=== PATIENT | male | born 1925 | race Caucasian/White ===

== ENCOUNTER 2016-12-06 05:28 | Inpatient (IN) | payer MEDICARE, OTHER ==
[~2016-12-06] VITALS: Ht 177.8 cm; Wt 68.7 kg
[2016-12-06 06:27] LABS: ALBUMIN 3.4 GM/DL (3.2-5.2); ALBUMIN/GLOBULIN RATIO 1.13 (1.00-1.93); ALKALINE PHOSPHATASE 48 U/L (45-117); ALT/SGPT 18 U/L (12-78); AMYLASE 60 U/L (25-115); ANION GAP 10 MEQ/L (8-16); AST/SGOT 18 U/L (15-37); BILIRUBIN,DIRECT 0.3 MG/DL (0.0-0.2); BILIRUBIN,TOTAL 1.7 MG/DL (0.2-1.0); BLOOD UREA NITROGEN 23 MG/DL (7-18); CALCIUM LEVEL 9.4 MG/DL (8.8-10.2); CARBON DIOXIDE LEVEL 27 MEQ/L (21-32); CHLORIDE LEVEL 107 MEQ/L (98-107); CREATININE FOR GFR 1.77 MG/DL (0.70-1.30); GLOMERULAR FILTRATION RATE 38.8 (>35); GLUCOSE, FASTING 104 MG/DL (83-110); POTASSIUM SERUM 3.6 MEQ/L (3.5-5.1); SODIUM LEVEL 144 MEQ/L (136-145); TOTAL PROTEIN 6.4 GM/DL (6.4-8.2)
[2016-12-06 06:31] LABS: MEAN CORPUSCULAR HEMOGLOBIN 34.6 pg (27.0-33.0); MEAN CORPUSCULAR HGB CONC 33.3 g/dl (32.0-36.5); MEAN CORPUSCULAR VOLUME 103.7 fl (80.0-96.0); PLATELET COUNT, AUTOMATED 178 k/mm3 (150-450); WHITE BLOOD COUNT 22.4 K/mm3 (4.0-10.0)
[2016-12-06 07:03] LABS: BANDS 12 % (< 11)
[2016-12-06] MEDS ORDERED: PANTOPRAZOLE 40MG TAB (PROTONIX) PO SCH (09:00)
[2016-12-06] MEDS ORDERED: cefTRIAXone SOD 1 GM VIAL (J0696) As Ordered ONE (09:11)
[2016-12-06] MEDS ORDERED: AZITHROMYCIN INJ 500MG VIAL (J0456) As Ordered ONE (09:11)
[2016-12-06] MEDS ORDERED: SIMB1SUS OU (09:28)
[2016-12-06] MEDS ORDERED: TRAV04OPD OU (09:28)
[2016-12-06] MEDS ORDERED: ROLA1CHW PO (09:28)
[2016-12-06] MEDS ORDERED: ACETAMINOPHEN 500 MG TAB PO PRN (10:00)
[2016-12-06] MEDS ORDERED: ONDANSETRON 4MG/2ML VIAL (J2405) IV PRN (10:00)
[2016-12-06 10:43] VITALS: BP 103/58
--- NOTE | 2016-12-06 10:51 | EDDOCDS ---
Physician Documentation [facility] Name: Que Nam Jr Age: 89 yrs Sex: Male : 1925 Arrival Date: 12/06/2016 Time: 05:28 Bed 3 Private MD: Juan M Burnett Disposition: 12/06 09:36 Critical Care: Critical care not applicable. Disposition: 12/06/16 09:36 Hospitalization ordered by Candelaria Parsons for Inpatient Admission. Preliminary diagnosis is Bronchopneumonia, unspecified organism - RML. - Bed requested for 4 [place]. - Status is Inpatient Ad[facility]. [facility] - Condition is Stable. - Problem is new. - Symptoms have improved. Historical: - Allergies: No known drug Allergies; - Home Meds: 1. Travatan Z 0.004 % ophthalmic drop - PMHx: Macular Degeneration; - PSHx: Hip Arthroplasty, Right; - Social history: Smoking status: Patient states former smoker of tobacco. Patient uses alcohol on a daily basis. Patient/guardian denies using street drugs, No barriers to communication noted, The patient speaks fluent Armenian. - Family history: Not pertinent. - : The pt / caregiver states he / she is not on anticoagulants. Home medication list is obtained from the patient. - Exposure Risk Screening:: None identified. Vital Signs: 05:44 BP 102 / 60; Pulse 96; Resp 18; Temp 97.8(O); Pulse Ox 91% on R/A; Pain 2/10; jp6 05:50 Weight 66.22 kg / 145.99 lbs; Height 5 ft. 10 in. (177.80 cm); jp6 06:00 BP 97 / 51 (auto/); jp6 06:00 Pulse 92 MON; Pulse Ox 93% ; jp6 06:15 BP 102 / 59 (auto/); jp6 06:15 Pulse 90 MON; Pulse Ox 92% ; jp6 06:45 BP 103 / 56 (auto/); jp6 06:45 Pulse 94 MON; jp6 06:45 Resp 16; Pulse Ox 97% on R/A; jp6 07:00 BP 104 / 58 (auto/); dls 07:00 Pulse 92 MON; Pulse Ox 90% ; dls 07:15 BP 100 / 55 (auto/); dls 07:15 Pulse 89 MON; Pulse Ox 90% ; dls 07:30 BP 100 / 55 (auto/); dls 07:30 Pulse 91 MON; Pulse Ox 89% ; dls 07:45 BP 98 / 55 (auto/); dls 07:45 Pulse 92 MON; Pulse Ox 90% ; dls 08:00 BP 84 / 51 (auto/); dls 08:00 Pulse 89 MON; Pulse Ox 91% ; dls 08:15 BP 87 / 49 (auto/); dls 08:21 Pulse 92 MON; Pulse Ox 86% ; dls 08:36 BP 89 / 61 (auto/); dls 08:36 Pulse 102 MON; Pulse Ox 78% ; dls 08:45 BP 112 / 55 (auto/); js13 08:45 Pulse 88 MON; Resp 16; Pulse Ox 92% on R/A; js13 09:00 BP 112 / 57 (auto/); js13 09:00 Pulse 86 MON; Resp 16; Pulse Ox 91% on R/A; js13 09:15 BP 116 / 61 (auto/); js13 09:15 Pulse 88 MON; Resp 16; Pulse Ox 95% on 2 lpm NC; js13 09:30 BP 117 / 69 (auto/); js13 09:30 Pulse 84 MON; Resp 16; Pulse Ox 97% on 2 lpm NC; js13 09:45 BP 128 / 61 (auto/); js13 09:45 Pulse 87 MON; Resp 16; Pulse Ox 95% on 2 lpm NC; js13 10:00 BP 115 / 56 (auto/); js13 10:00 Pulse 89 MON; Resp 16; Pulse Ox 92% on 2 lpm NC; js13 10:15 BP 112 / 58 (auto/); js13 10:15 Pulse 89 MON; Resp 16; Temp 98.0(O); Pulse Ox 97% on 2 lpm NC; js13 05:50 Body Mass Index 20.95 (66.22 kg, 177.80 cm) jp6 05:44 hands are cold jp6 MDM: 05:33 ECG WITH READING ER PHYS+CARDIAG ordered. EDMS 05:56 Ondansetron 4 mg IVP once ordered. mm11 05:56 IV Saline Lock ordered. mm11 05:56 Undress patient appropriately for examination ordered. mm11 05:56 Visual Arts Teacher/Pulse Ox/q 30 min VS ordered. mm11 05:56 NS 0.9% 500 ml IV at bolus once ordered. mm11 05:58 NOTHING BY MOUTH+DIET ordered. EDMS 05:58 Amylase Ordered. EDMS 05:58 Basic Metabolic Profile Ordered. EDMS 05:58 CBC with Diff Ordered. EDMS 05:58 Cardiac Injury Profile Ordered. EDMS 05:58 Lipase Ordered. EDMS 05:58 Liver Profile Ordered. EDMS 05:58 Troponin Ordered. EDMS 05:58 Chest, 1 View Ordered. EDMS 06:33 DIFFERENTIAL NO CHARGE Ordered. EDMS 06:41 Basic Metabolic Profile Reviewed. mm11 06:41 CBC with Diff Reviewed. mm11 06:41 Liver Profile Reviewed. mm11 06:41 Amylase Reviewed. mm11 06:41 Cardiac Injury Profile Reviewed. mm11 06:41 Lipase Reviewed. mm11 06:41 Troponin Reviewed. mm11 07:31 CBC with Diff Reviewed. mm11 07:31 PLATELET ESTIMATE Reviewed. mm11 07:52 UA Ordered. EDMS 07:52 Urine Culture Ordered. EDMS 07:52 CT Chest Without Contrast Ordered. EDMS 07:52 CT ABD & PELVIS: No Contrast Ordered. EDMS 07:52 Lactic Acid (Scott tube on ice) Ordered. EDMS 09:03 [facility] Payment Agreement was scanned into [employer] and attached to record. jp5 09:03 Financial registration complete. jp5 09:04 UA Reviewed. pc 09:08 cefTRIAXone 1 grams IVPB once over 30 mins; dilute in 50mL of NS or D5W ordered. pc 09:08 azithromycin 500 mg IVPB once over 1 hrs; dilute in 250mL of D5W or NS ordered. pc 09:08 Oxygen 2L via NC, titrate to maintain PO >95% ordered. pc 09:08 BED REQUEST+ADM ordered. EDMS 09:36 Test interpretation: interpreted by Radiologist and personally reviewed, Abdomen/Pelvis pc CT; large hiatal hernia containing transverse colon Chest CT; RML infiltrate, hiatal hernia . The patient has been re-examined and re-evaluated. The patient's symptoms have mildly improved after treatment. Physician consultation: Dr. Candelaria Parsons was contacted at 09:37, regarding admission. Disposition: The historical points, examination findings, and any diagnostic results supporting the provided diagnosis, were discussed with the patient or legal guardian. The need for further work-up and/or treatment in the hospital was explained. 10:01 Admission / Observation Status ordered. EDMS 10:01 REGULAR DIET ordered. EDMS Administered Medications: 06:06 Drug: NS 0.9% 500 ml [sodium chloride 0.9 % intravenous solution] Route: IV; Rate: jp6 bolus; Site: left forearm; 06:39 Not Given (pt was given zofran just prior to arrival by ems): Ondansetron 4 mg IVP once jp6 09:18 Drug: cefTRIAXone 1 grams [ceftriaxone 1 gram solution for injection] Route: IVPB; js13 Infused Over: 30 mins; Site: left forearm; 09:45 Follow up: IV Status: Completed infusion; IV Intake: 50ml js13 09:45 Drug: azithromycin 500 mg [azithromycin 500 mg intravenous solution] Route: IVPB; js13 Infused Over: 1 hrs; Site: left forearm; 10:40 Follow up: IV Intake: 250ml js13 10:40 Follow up: IV Status: Completed infusion js13 Signatures: Dispatcher [employer] EDMS Joshua Barakat MD MD pc Jobson, Karen RN RN Spencer Bravo, DO mm11 Ivone Dong jp5 Kelly Chavis RN RN jp6 Fani Florez RN RN Morenita Carbone RN js13 The chart was reviewed and I authenticate all verbal orders and agree with the evaluation and treatment provided.Attachments: 09:03 [facility] Payment Agreement jp5 MTDD
--- NOTE | 2016-12-06 10:52 | EDDOCDS ---
Nurse's Notes [facility] Name: Que Nam Jr Age: 89 yrs Sex: Male : 1925 Arrival Date: 12/06/2016 Time: 05:28 Bed 3 Private MD: Juan M Burnett Diagnosis: Bronchopneumonia, unspecified organism-[facility] Presentation: 12/06 05:42 Presenting complaint: EMS states: pt at home w/ n/vd since yesterday not feeling jp6 well-c/o right sided rib area pain low b/p. 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 Adult Sepsis Screening: The patient does not have new or worsening altered mentation. Patient's respiratory rate is less than 22. Systolic blood pressure is greater than 100. Patient has a qSOFA score of 0- Negative Sepsis Screen. Suicide/Homicide risk assessment- the patient denies having any suicidal and/or homicidal ideations and does not present with any other emotional, behavioral or mental health complaints. Status:. Transition of care: patient was not received from another setting of care. 05:42 Acuity: GISELLE Level 2 [facility] 05:42 Method Of Arrival: Ambulance 6 Triage Assessment: 05:44 General: Appears in no apparent distress, comfortable, slender, well developed, well jp6 nourished, well groomed, Behavior is appropriate for age, cooperative. Pain: Location: chest-right chest/rib area Pain currently is 2 out of 10 on a pain scale. Pain does not radiate. Quality of pain is described as aching. The patient is triaged at the bedside. See Assessment in Nurses Notes section of ED record. Neurological: Level of Consciousness is awake, alert, Oriented to person, place, time. 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 Cardiovascular: Capillary refill is > 3 seconds is sluggish hands are cold. Heart tones S2 present Chest pain is described as mild, quality is ache is located in right radiates Does not radiate. episodes are intermittent began 4 hours prior to arrival. Respiratory: Airway is patent Respiratory effort is even, unlabored, Respiratory pattern is regular, symmetrical, Breath sounds are clear bilaterally. GI: No deficits noted. Abdomen is flat, non- distended Bowel sounds present X 4 quads. Abd is soft and non tender X 4 quads. : No deficits noted. Derm: Skin is pink, warm & dry. Musculoskeletal: No deficits noted. Historical: - Allergies: No known drug Allergies; - Home Meds: 1. Travatan Z 0.004 % ophthalmic drop - PMHx: Macular Degeneration; - PSHx: Hip Arthroplasty, Right; - Social history: Smoking status: Patient states former smoker of tobacco. Patient uses alcohol on a daily basis. Patient/guardian denies using street drugs, No barriers to communication noted, The patient speaks fluent [place]. - Family history: Not pertinent. - : The pt / caregiver states he / she is not on anticoagulants. Home medication list is obtained from the patient. - Exposure Risk Screening:: None identified. Screenin:50 Screening information is obtained from the patient. 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 Assistance ADL's: requires no assistance with activities of daily living. Abuse/DV Screen: The patient / caregiver reports he/she is: not in a situation that causes fear, pain or injury. Nutritional screening: No deficits noted. home support is adequate. 06:15 Advance Directives: Currently, there is no health care proxy. There is no active DNR jp6 order. There is no living will. Assessment: 05:50 General: see triage assessment. jp6 06:19 Reassessment: Patient appears in no apparent distress at this time. Patient states jp6 symptoms have improved. General: Behavior is appropriate for age, cooperative. Pain: Denies pain. Cardiovascular: Rhythm is sinus rhythm No ectopy. Respiratory: Airway is patent Respiratory effort is even, unlabored, Respiratory pattern is regular, symmetrical. Derm: Skin is pink, warm & dry. 07:52 General: Pt sleeping vital signs remain stable Daughter at the bedside.. dls 08:40 General: Pt to CT via stretcher and returned additional lab work drawn and pt stood to dls void ua spec obtained pt remains hypotensive.. 09:23 Adult Sepsis Screening: The patient does not have new or worsening altered mentation. js13 Patient's respiratory rate is less than 22. Systolic blood pressure is greater than 100. Patient has a qSOFA score of 0- Negative Sepsis Screen. General: Appears in no apparent distress, Behavior is appropriate for age, cooperative. Pain: Denies pain. Neurological: Level of Consciousness is awake, alert. Cardiovascular: Rhythm is sinus rhythm Chest pain is denied. Respiratory: Airway is patent Respiratory effort is even, unlabored, Respiratory pattern is regular, symmetrical, Breath sounds are diminished. Derm: Skin is pink, warm & dry. 09:40 General: Appears in no apparent distress, comfortable. Neurological: Level of js13 Consciousness is awake, alert. Respiratory: Airway is patent Respiratory effort is even, unlabored, Respiratory pattern is regular. Derm: Skin is pink, warm & dry. 10:27 General: Appears in no apparent distress, comfortable, Behavior is appropriate for age, js13 cooperative. Pain: Denies pain. Neurological: Level of Consciousness is awake, alert. Cardiovascular: Rhythm is sinus rhythm Chest pain is denied. Respiratory: Airway is patent Respiratory effort is even, unlabored, Respiratory pattern is regular, symmetrical, Breath sounds are diminished. Derm: Skin is pink, warm & dry. Vital Signs: 05:44 BP 102 / 60; Pulse 96; Resp 18; Temp 97.8(O); Pulse Ox 91% on R/A; Pain 2/10; jp6 05:50 Weight 66.22 kg; Height 5 ft. 10 in. (177.80 cm); jp6 06:00 BP 97 / 51 (auto/); jp6 06:00 Pulse 92 MON; Pulse Ox 93% ; jp6 06:15 BP 102 / 59 (auto/); jp6 06:15 Pulse 90 MON; Pulse Ox 92% ; jp6 06:45 BP 103 / 56 (auto/); jp6 06:45 Pulse 94 MON; jp6 06:45 Resp 16; Pulse Ox 97% on R/A; jp6 07:00 BP 104 / 58 (auto/); dls 07:00 Pulse 92 MON; Pulse Ox 90% ; dls 07:15 BP 100 / 55 (auto/); dls 07:15 Pulse 89 MON; Pulse Ox 90% ; dls 07:30 BP 100 / 55 (auto/); dls 07:30 Pulse 91 MON; Pulse Ox 89% ; dls 07:45 BP 98 / 55 (auto/); dls 07:45 Pulse 92 MON; Pulse Ox 90% ; dls 08:00 BP 84 / 51 (auto/); dls 08:00 Pulse 89 MON; Pulse Ox 91% ; dls 08:15 BP 87 / 49 (auto/); dls 08:21 Pulse 92 MON; Pulse Ox 86% ; dls 08:36 BP 89 / 61 (auto/); dls 08:36 Pulse 102 MON; Pulse Ox 78% ; dls 08:45 BP 112 / 55 (auto/); js13 08:45 Pulse 88 MON; Resp 16; Pulse Ox 92% on R/A; js13 09:00 BP 112 / 57 (auto/); js13 09:00 Pulse 86 MON; Resp 16; Pulse Ox 91% on R/A; js13 09:15 BP 116 / 61 (auto/); js13 09:15 Pulse 88 MON; Resp 16; Pulse Ox 95% on 2 lpm NC; js13 09:30 BP 117 / 69 (auto/); js13 09:30 Pulse 84 MON; Resp 16; Pulse Ox 97% on 2 lpm NC; js13 09:45 BP 128 / 61 (auto/); js13 09:45 Pulse 87 MON; Resp 16; Pulse Ox 95% on 2 lpm NC; js13 10:00 BP 115 / 56 (auto/); js13 10:00 Pulse 89 MON; Resp 16; Pulse Ox 92% on 2 lpm NC; js13 10:15 BP 112 / 58 (auto/); js13 10:15 Pulse 89 MON; Resp 16; Temp 98.0(O); Pulse Ox 97% on 2 lpm NC; js13 05:50 Body Mass Index 20.95 (66.22 kg, 177.80 cm) jp6 05:44 hands are cold jp6 Vitals: 05:44 Log In Time N/A - ambulance arrival. jp6 ED Course: 05:29 Patient visited by Jeff Polanco PCA. kb5 05:29 Juan M Burnett MD is Private Physician. kb5 05:29 Patient moved to Waiting kb5 05:29 Patient moved to 3 kb5 05:39 Patient visited by Citlalli Clark PCA. manohar 05:39 Pt greeted and oriented to ED. Patient advised of names of staff involved in care, manohar location of call [place], wait times and NPO status. Patient has correct armband on for positive identification. Placed in gown. Bed in low position. Call light in reach. Side rails up X2. monitoring and evaluation advisor on. Pulse ox on. NIBP on. 05:39 EKG done. (by ED staff). Reviewed by Spencer Gamino DO. manohar 05:42 Kelly Chavis RN is Primary Nurse. jp6 05:42 Patient visited by Kelly Chavis RN. jp6 05:43 Triage Initiated jp6 05:49 Spencer Gamino DO is Attending Physician. mm11 05:49 Patient visited by Spencer Gamino DO. mm11 05:50 Maintain field IV. Dressing intact. Good blood return noted. Site clean & dry. Gauge & jp6 site: 20g left ac. 05:55 Patient visited by Spencer Gamino DO. mm11 06:06 Amylase Sent. jp6 06:06 Basic Metabolic Profile Sent. jp6 06:06 CBC with Diff Sent. jp6 06:06 Cardiac Injury Profile Sent. jp6 06:06 Lipase Sent. jp6 06:06 Liver Profile Sent. jp6 06:06 Troponin Sent. jp6 06:55 DIFFERENTIAL NO CHARGE Sent. sls1 06:56 Patient visited by Kelly Chavis RN. jp6 07:25 Primary Nurse role handed off by Kelly Chavis RN jlf 07:48 Patient visited by Spencer Gamino DO. mm11 07:50 Report received from Kelly ROLDAN. dls 07:52 Attending Physician role handed off by Spencer Gamino DO pc 07:52 Joshua Barakat MD is Attending Physician. pc 08:38 Lactic Acid (Scott tube on ice) Sent. ct3 08:51 Patient visited by Sherri Galarza PCA. ct3 08:51 Patient visited by Chula Graff RN. dls 09:03 [facility] Payment Agreement was scanned into [employer] (by [employer]) and attached to record. jp5 09:25 Patient visited by Morenita Prakash RN. js13 09:25 No procedures done that require assistance. O2 via nasal cannula \T\ 2L/min. js13 09:36 Candelaria Parsons is Hospitalizing Provider. pc 09:40 Patient visited by Morenita Prakash,JAMAR. js13 09:51 Patient name changed from Que\S\S\S\Nam\S\ to Que\S\S\S\Nam Jr. EDMS 10:15 The patient / caregiver is instructed regarding the plan of care and ED course. js13 Administered Medications: 06:06 Drug: NS 0.9% 500 ml [sodium chloride 0.9 % intravenous solution] Route: IV; Rate: jp6 bolus; Site: left forearm; 06:39 Not Given (pt was given zofran just prior to arrival by ems): Ondansetron 4 mg IVP once jp6 09:18 Drug: cefTRIAXone 1 grams [ceftriaxone 1 gram solution for injection] Route: IVPB; js13 Infused Over: 30 mins; Site: left forearm; 09:45 Follow up: IV Status: Completed infusion; IV Intake: 50ml js13 09:45 Drug: azithromycin 500 mg [azithromycin 500 mg intravenous solution] Route: IVPB; js13 Infused Over: 1 hrs; Site: left forearm; 10:40 Follow up: IV Intake: 250ml js13 10:40 Follow up: IV Status: Completed infusion js13 Intake: 09:45 IV: 50.00ml; Total: 50.00ml. js13 10:40 IV: 250.00ml; Total: 300.00ml. js13 Order Results: Lab Order: Amylase; SPEC'M 12/06/16 05:40 Test: AMYLASE; Value: 60; Range: 25-115; Units: U/L; Status: F Lab Order: Basic Metabolic Profile; SPEC'M 12/06/16 05:40 Test: GLUCOSE, FASTING; Value: 104; Range: 83-110; Units: MG/DL; Status: F Test: BLOOD UREA NITROGEN; Value: 23; Range: 7-18; Abnormal: Above high normal; Units: MG/DL; Status: F Test: CREATININE FOR GFR; Value: 1.77; Range: 0.70-1.30; Abnormal: Above high normal; Units: MG/DL; Status: F Test: GLOMERULAR FILTRATION RATE; Value: 38.8; Range: >35; Status: F Test: SODIUM LEVEL; Value: 144; Range: 136-145; Units: MEQ/L; Status: F Test: POTASSIUM SERUM; Value: 3.6; Range: 3.5-5.1; Units: MEQ/L; Status: F Test: CHLORIDE LEVEL; Value: 107; Range: 98-107; Units: MEQ/L; Status: F Test: CARBON DIOXIDE LEVEL; Value: 27; Range: 21-32; Units: MEQ/L; Status: F Test: ANION GAP; Value: 10; Range: 8-16; Units: MEQ/L; Status: F Test: CALCIUM LEVEL; Value: 9.4; Range: 8.8-10.2; Units: MG/DL; Status: F Test Note: ; Units are mL/min/1.73 m2 Chronic Kidney Disease Staging per NKF: Stage I & II GFR >=60 Normal to Mildly Decreased Stage III GFR 30-59 Moderately Decreased Stage IV GFR 15-29 Severely Decreased Stage V GFR <15 Very Little GFR Left ESRD GFR <15 on SIDE GUIDER Lab Order: CBC with Diff; SPEC'M 12/06/16 05:40 Test: WHITE BLOOD COUNT; Value: 22.4; Range: 4.0-10.0; Abnormal: Above high normal; Units: K/mm3; Status: F Test: RED BLOOD COUNT; Value: 4.01; Range: 4.30-6.10; Abnormal: Below low normal; Units: M/mm3; Status: F Test: HEMOGLOBIN; Value: 13.9; Range: 14.0-18.0; Abnormal: Below low normal; Units: g/dl; Status: F Test: HEMATOCRIT; Value: 41.6; Range: 42.0-52.0; Abnormal: Below low normal; Units: %; Status: F Test: MEAN CORPUSCULAR VOLUME; Value: 103.7; Range: 80.0-96.0; Abnormal: Above high normal; Units: fl; Status: F Test: MEAN CORPUSCULAR HEMOGLOBIN; Value: 34.6; Range: 27.0-33.0; Abnormal: Above high normal; Units: pg; Status: F Test: MEAN CORPUSCULAR HGB CONC; Value: 33.3; Range: 32.0-36.5; Units: g/dl; Status: F Test: RED CELL DISTRIBUTION WIDTH; Value: 13.0; Range: 11.5-14.5; Units: %; Status: F Test: PLATELET COUNT, AUTOMATED; Value: 178; Range: 150-450; Units: k/mm3; Status: F Test: NEUTROPHILS; Value: 79; Range: 35-75; Abnormal: Above high normal; Units: %; Status: F Test: BANDS; Value: 12; Range: < 11; Abnormal: Above high normal; Units: %; Status: F Test: LYMPHOCYTES; Value: 2; Range: 16-52; Abnormal: Below low normal; Units: %; Status: F Test: MONOCYTES; Value: 7; Range: 0-8; Units: %; Status: F Test: MACROCYTOSIS; Value: 1+; Status: F Lab Order: Cardiac Injury Profile; [facility] 12/06/16 05:40 Test: CPK CREATINE PHOSPHOKINASE; Value: 49; Range: 39-308; Units: U/L; Status: F Test: CK-MB VALUE MASS; Value: 1.0; Range: 0.0-3.6; Units: NG/ML; Status: F Test: MB/CK RELATIVE INDEX; Value: 2.04; Range: < OR =4; Status: F Test Note: ; DIAGNOSIS CRITERIA MMB ng/ml Relative Index (RI) NON-AMI < or = 5 N/A [place] > 5 < or = 4 AMI > 5 > 4 Lab Order: Lipase; [facility] 12/06/16 05:40 Test: LIPASE; Value: 358; Range: 73-393; Units: U/L; Status: F Lab Order: Liver Profile; [facility] 12/06/16 05:40 Test: AST/SGOT; Value: 18; Range: 15-37; Units: U/L; Status: F Test: ALT/SGPT; Value: 18; Range: 12-78; Units: U/L; Status: F Test: ALKALINE PHOSPHATASE; Value: 48; Range: 45-117; Units: U/L; Status: F Test: BILIRUBIN,TOTAL; Value: 1.7; Range: 0.2-1.0; Abnormal: Above high normal; Units: MG/DL; Status: F Test: BILIRUBIN,DIRECT; Value: 0.3; Range: 0.0-0.2; Abnormal: Above high normal; Units: MG/DL; Status: F Test: TOTAL PROTEIN; Value: 6.4; Range: 6.4-8.2; Units: GM/DL; Status: F Test: ALBUMIN; Value: 3.4; Range: 3.2-5.2; Units: GM/DL; Status: F Test: ALBUMIN/GLOBULIN RATIO; Value: 1.13; Range: 1.00-1.93; Status: F Lab Order: Troponin; [facility] 12/06/16 05:40 Test: TROPONIN I; Value: < 0.02; Range: < 0.10; Units: NG/ML; Status: F Test Note: ; Troponin I Reference Interval for [employer] [place] LOCI: 99th Percentile= 0.00-0.045 ng/ml Risk Stratification: <= 0.10 ng/ml Decreased Risk for Adverse Clinical Events. 0.10-1.50 ng/ml Increased Risk for Adverse Clinical Events. Evaluation of additional criterion and/or repeat testing in 2-6 hours is suggested to rule out myocardial damage. >= 1.50 ng/ml Indicative of Myocardial Injury. Lab Order: PLATELET ESTIMATE; SPEC'M 12/06/16 05:40 Test: PLATELET ESTIMATE; Value: NORMAL; Range: NORMAL; Status: F Lab Order: UA; SPEC'M 12/06/16 08:22 Test: APPEARANCE, URINE; Value: HAZY; Range: CLEAR; Status: F Test: COLOR, URINE; Value: YELLOW; Range: YELLOW; Status: F Test: PH,URINE; Value: 5.0; Range: 5.0-9.0; Units: UNITS; Status: F Test: SPECIFIC GRAVITY URINE AUTO; Value: 1.016; Range: 1.002-1.035; Status: F Test: PROTEIN, URINE AUTO; Value: 1+; Range: NEGATIVE; Abnormal: Above high normal; Units: mg/dL; Status: F Test: GLUCOSE, URINE (UA) AUTO; Value: NEGATIVE; Range: NEGATIVE; Units: mg/dL; Status: F Test: KETONE, URINE AUTO; Value: NEGATIVE; Range: NEGATIVE; Units: mg/dL; Status: F Test: UROBILINOGEN, URINE AUTO; Value: 0.2; Range: 0.0-2.0; Units: mg/dL; Status: F Test: BILIRUBIN, URINE AUTO; Value: NEGATIVE; Range: NEGATIVE; Status: F Test: NITRITE, URINE AUTO; Value: NEGATIVE; Range: NEGATIVE; Status: F Test: LEUKOCYTE ESTERASE, URINE AUTO; Value: 3+; Range: NEGATIVE; Abnormal: Above high normal; Status: F Test: BLOOD, URINE BLOOD; Value: 1+; Range: NEGATIVE; Abnormal: Above high normal; Status: F Test: WBC, URINE AUTO; Value: 60; Range: 0-3; Abnormal: Above high normal; Units: /HPF; Status: F Test: RBC, URINE AUTO; Value: 10; Range: 0-3; Abnormal: Above high normal; Units: /HPF; Status: F Test: BACTERIA, URINE AUTO; Value: 1+; Range: NEGATIVE; Abnormal: Above high normal; Status: F Test: SQUAMOUS EPITHELIAL CELL UR AU; Value: 0; Range: 0-6; Units: /HPF; Status: F Test: MUCUS, URINE; Value: LARGE; Range: NEGATIVE; Status: F Test: HYALINE CAST, URINE AUTO; Value: 4; Range: 0-1; Units: /LPF; Status: F Test: AMORPHOUS SEDIMENT; Value: SMALL; Range: NEGATIVE; Abnormal: Above high normal; Status: F Lab Order: Lactic Acid (Scott tube on ice); SPEC'M 12/06/16 08:26 Test: LACTIC ACID LEVEL, LACTATE; Value: 1.9; Range: 0.4-2.0; Units: MMOL/L; Status: F Outcome: 09:36 Decision to Hospitalize by Provider. 10:15 Admission hand-off: Report Faxed. 13 10:39 Discharge Assessment: Patient awake, alert and oriented x 3. No cognitive and/or js13 functional deficits noted. Patient verbalized understanding of disposition instructions. patient administered narcotics - no. The following High Risk Discharge criteria are identified: None. Admitted to Med/Surg accompanied by tech, family with patient, via stretcher, with oxygen, with chart. Condition: stable. CT Study completed. Property :Personal belongings accompany Pt. 10:50 Patient left the ED. [facility] Signatures: Dispatcher [employer] EDMS Joshua Barakat MD MD pc Jobson, Karen, RN JAMAR [facility] Chula Graff, RN RN Jeff Bravo, SKIN CARE TECHNICIAN SKIN CARE TECHNICIAN kb5 Spencer Gamino, DO DO mm11 Citlalli Clark, SKIN CARE TECHNICIAN SKIN CARE TECHNICIAN manohar Sherri Galarza, SKIN CARE TECHNICIAN SKIN CARE TECHNICIAN ct3 Cady Rivera, RN RN sls1 Morenita Prakash,RN RN js13 Connie Saunders, SKIN CARE TECHNICIAN SKIN CARE TECHNICIAN edithf Ivone Dong jp5 Kelly Chavis,RN RN jp6 Corrections: (The following items were deleted from the chart) 10:41 10:39 No special radiology studies were completed js13 js13 MTDD
[2016-12-06 11:24] VITALS: BP 128/67
[2016-12-06] MEDS: SENOKOT S TAB PO SCH ×2 (11:40→21:16)
[2016-12-06] MEDS: ENOXAPARIN 30 MG/0.3 ML SYR (J1650) SC SCH (11:41)
--- NOTE | 2016-12-06 12:13 | REP ---
CT CHEST WITHOUT CONTRAST: 12/06/2016. Comparison CT angiogram chest 09/27/2014, chest x-ray 12/06/2016. CLINICAL HISTORY: 89-year-old male with chest pain. TECHNIQUE: Noncontrast CT protocol utilized. FINDINGS: Lung matamoros again show a very large hiatal hernia with the entire stomach above the diaphragm along with some transverse colon and hepatic flexure. Most of this is towards the right with the stomach towards the left. The greater curvature of the stomach is oriented superiorly. There is extensive consolidation in the right middle lobe representing pneumonia. There is a calcification of the right diaphragm and some subsegmental atelectasis along the left diaphragm. I do not see pleural effusion on the right. Subsegmental ectatic change deep sulcus on the right. No left effusion. Some dependent atelectasis in both lungs which are otherwise clear. There is no pneumothorax or pneumomediastinum. The aorta is without aneurysm or calcifications at the aortic valve plane and arch. Small mediastinal nodes without pathologic sized adenopathy. No axillary or supraclavicular mass. Bone windows show the sternum, manubrium, clavicles, AC joints without acute finding. There are degenerative changes of the AC and glenohumeral joints. Visualized ribs are without fracture or destructive lesion. No compression deformities in the thoracic spine on an acute basis. The T12 and T9 vertebral levels show Schmorl's nodes at superior endplates. Upper abdomen shows no evidence of ascites. That portion of liver included was unremarkable. Spleen not enlarged. IMPRESSION: 1. Massive hiatal hernia, increased in size since the previous study with the entire stomach within the lower chest as well as the transverse colon, hepatic flexure and extensive omental fat. 2. Right middle lobe pneumonia with extensive consolidative air space opacities in that lung and some calcification along the right diaphragm as before. No pleural effusion. 3 Cardiomegaly without pericardial thickening or effusion nor aortic aneurysm. No mediastinal adenopathy or fluid. No pneumothorax or pneumomediastinum. No acute bony finding. Signed by Rashel Massey MD 12/06/2016 02:27 P
--- NOTE | 2016-12-06 12:19 | REP ---
PORTABLE CHEST X-RAY: Two views presented. HISTORY: Chest pain. COMPARISON: Chest x-ray September 23, 2014. FINDINGS: There is a very large hiatal hernia superimposed on the heart and projecting well to the right base unchanged from comparison study. The lungs are symmetrically aerated. There are some increased markings in the right lower lobe lateral to the hiatal hernia which may reflect infiltrate. The left lung is clear. Heart is near the upper range of normal in size. IMPRESSION: Infiltrate suspected in the right base lateral to a very large chronically present hiatal hernia. Signed by Yash Ramos MD 12/06/2016 01:25 P
--- NOTE | 2016-12-06 12:47 | REP ---
CT ABDOMEN AND PELVIS WITHOUT CONTRAST: 12/06/2016 COMPARISON: 10/23/2012, lumbar x-rays 06/19/2015 CLINICAL HISTORY: Abdominal pain, chest pain. TECHNIQUE: Axial noncontrast images performed with coronal and sagittal reconstructions. FINDINGS: CT ABDOMEN: Mild cardiomegaly without pericardial thickening or effusion. There is a mass of the hiatal hernia, more towards the right than left. The entire stomach is in the chest with the duodenum showing the bulb just at the hiatus. There is no hepatosplenomegaly, focal hepatic or splenic mass nor intrahepatic biliary dilatation. Gallbladder is partially contracted. The stomach shows some retained food and fluid within. It appears to have its greater curvature anteriorly and superiorly. Atherosclerotic calcification of the aorta without aneurysm. Adrenal glands are without mass. There is slight thickening of the limbs on the left suggesting adrenal hyperplasia. Kidneys show no stone, mass or cyst. There is no hydronephrosis but there is perinephric stranding. No hydroureter or ureteral stone on either side extending only to the bladder. The pancreas showed no inflammatory change, mass or adjacent fluid collection. There is a small splenule adjacent to the tail of the pancreas between it and the inferior margin of the spleen stable. The small bowel loops are fluid filled but not dilated. There are no inflammatory changes about the colon with a few scattered diverticula in the left colon without colitis or diverticulitis. There is no ascites or free air. I see no ventral hernia. Bone windows show a grade 2 compression at L3, similar to the radiograph on 06/19/2015. This is new compared to the CT abdomen in 2011. There is no free air on the lung window review of all CT slices of the abdomen and pelvis. CT PELVIS: There is a surgical clip pattern from prior left inguinal hernia surgery. I do not see bowel herniation. Recurrent on the left side. On the right side, there is no bowel herniation but there is soft tissue density in the inguinal canal and upper scrotum, which may be the right testis and epididymis. The ventral hernia detailed by unremarkable, otherwise. There is no dilatation. Diverticulosis distal left colon and sigmoid without diverticulitis, colitis, stricture or mass. Prostate has calcifications. It is enlarged indenting the bladder base but otherwise unremarkable. Bladder shows no wall thickening or mass. There is no dilated distal ureter or definite stone although there is a right total hip arthroplasty with significant spray artifact. The metal artifact reduction images show no evidence of definite stone on either side. There is no pelvic lymphadenopathy. Bone windows in the pelvis show pubic rami, symphysis pubis, acetabuli without fracture or destructive lesion. The left hip shows minor degenerative changes. The right hip arthroplasty grossly intact. IMPRESSION: 1. No CT evidence of aortic aneurysm of retroperitoneal hematoma or mass.2. There is no hydronephrosis or hydroureter. No renal, ureteral or bladder stone. 3. Massive hiatal hernia with the entire stomach, much omentum, transverse colon and the hepatic flexure all in the right chest and retrocardiac left lower chest as on CT chest. 4. Grade 2 compression deformity L3 vertebral body unchanged from x-ray in 2015. Degenerative disc and facet changes. No new finding. 5. Mild sigmoid and distal left colon diverticulosis without diverticulitis. 6. Prior left inguinal hernia surgery without recurrent hernia. The right inguinal canal and upper scrotum as the right testis and epididymis without bowel herniation. No other findings. Signed by Rashel Massey MD 12/06/2016 02:29 P
[2016-12-06 14:00] VITALS: BP 108/59
[2016-12-06] MEDS ORDERED: CALCIUM CARBONATE 500 MG CHEW U/D PO PRN (14:30)
--- NOTE | 2016-12-06 14:45 | HPEPDOC ---
General Date of Admission Dec 06, 2016 at 09:56 Primary Care Physician: Jr Burnett Collins Attending Physician: CINTIA JONES MD Chief Complaint The patient is a 89-year-old male admitted with a reason for visit of Pneumonia. Source: Patient, Family, EMS History of Present Illness This is a 89 year old male brought in by EMS after he pressed his life alert button. As per daughter the life alert people called her at 4 am today to let her know that they found him in his driveway confused and was bringing him to the hospital . Apparently the life alert team had told the patient's neighbor that he was found passed out in the driveway. As per patient he had vomited 7/ 8 times last night and had several episodes of dry heaving and also had diarrhea 4 times in a span of 1 hour. He does not recall pressing his life alert or standing or passing out in his driveway. After arriving in the ED he was found to be febrile and had an elevated WBCs with bandemia .CT chest showed massive hiatal hernia and right middle lobe pneumonia. CT angio of the chest was negative for any PE or dissection. Patient was admitted to the hospitalist service for pneumonia and acute metabolic encephalopathy. Home Medications Scheduled (Simbrinza 1-0.2 %) 1 Mary Mary 1 DROP OU BID (Reported) Travoprost (Travatan Z) 50 Drop/2.5 Ml Soln 1 DROP OU QHS (Reported) Scheduled PRN (Rolaids 550-110 mg) 1 Chw Chw 1 CHW PO QHS PRN PRN HEARTBURN (Reported) Allergies Coded Allergies: No Known Allergies (Unverified , 12/06/16) Past Medical History Medical History Hiatal Hernia, GERD, glaucoma, CKD 3 Family History Significant Family History: No pertinent family hx Social History * Smoker: former Smoker Alcohol: other (takes 2 drinks daily) Psychosocial History: No pertinent psych hx Social History [place], good cognition , independent in ADLS Review of Symptoms Constitutional: Reports: Fever, Other (confusion), Weakness Pulmonary: Reports: Cough, Pleuritic Chest Pain Gastrointestinal: Reports: Diarrhea, Nausea, Vomiting Neurological: Reports: Confusion Physical Examination General Exam: Positive: Alert, Cooperative, No Acute Distress Eye Exam: Positive: Conjunctiva & lids normal, EOMI, PERRLA, Negative: Sclera icteric ENT Exam: Positive: Atraumatic, Mucous membr. moist/pink, Pharynx Normal Neck Exam: Positive: Supple, Negative: JVD, thyromegaly Chest Exam: Positive: Normal air movement, Rales Heart Exam: Positive: Normal S1, Normal S2, Rate Normal, Regular Rhythm, Negative: Murmurs, Rubs Abdomen Exam: Positive: Normal bowel sounds, Soft, Negative: Hepatospenomegaly Extremity Exam: Positive: Normal pulses, Negative: Clubbing, Cyanosis, Edema Laboratory Data Labs 24H Laboratory Tests 2 12/06/16 05:40: Aspartate Amino Transf (AST/SGOT) 18, Alanine Aminotransferase (ALT/SGPT) 18, Alkaline Phosphatase 48, Total Bilirubin 1.7H, Direct Bilirubin 0.3H, Albumin 3.4, Albumin/Globulin Ratio 1.13, Amylase Level 60, Anion Gap 10, Band Neutrophils 12H, White Blood Count 22.4H, Red Blood Count 4.01L, Hemoglobin 13.9L, Hematocrit 41.6L, Mean Corpuscular Volume 103.7H, Mean Corpuscular Hemoglobin 34.6H, Mean Corpuscular Hemoglobin Concent 33.3, Red Cell Distribution Width 13.0, Platelet Count 178, Neutrophils (%) (Auto) , Lymphocytes (%) (Auto) , Monocytes (%) (Auto) , Eosinophils (%) (Auto) , Basophils (%) (Auto) , Neutrophils # (Auto) , Lymphocytes # (Auto) , Monocytes # (Auto) , Eosinophils # (Auto) , Basophils # (Auto) , Calcium Level 9.4, Creatine Kinase MB 1.0, Creatine Kinase MB Relative Index 2.04, Glomerular Filtration Rate 38.8, Large Unclassified Cells # , Large Unclassified Cells % , Lipase 358, Lymphocytes (Manual) 2L, Macrocytosis 1+, Monocytes (Manual) 7, Neutrophils 79H, Platelet Estimate NORMAL, Total Creatine Kinase 49, Total Protein 6.4, Troponin I < 0.02 12/06/16 08:22: Urine Amorphous Sediment SMALLH, Urine Appearance HAZY, Urine Color YELLOW, Urine pH 5.0, Urine Specific [place] 1.016, Urine Protein 1+H, Urine Glucose (UA ) NEGATIVE, Urine Ketones NEGATIVE, Urine Urobilinogen 0.2, Urine Bilirubin NEGATIVE, Urine Leukocyte Esterase 3+H, Urine Bacteria (Auto) 1+H, Urine Blood 1 +H, Urine Calcium Carbonate Cryst(Auto) , Urine Calcium Oxalate Cryst (Auto) , Urine Calcium Phosphate Lety (Auto) , Urine Cellular Casts , Urine Cystine Crystals , Urine Granular Casts (Auto) , Urine Hyaline Casts (Auto) 4, Urine Leucine Crystals , Urine Mucus (Auto) LARGE, Urine Nitrite NEGATIVE, Urine Oval Fat Bodies (Auto) , Urine RBC (Auto) 10H, Urine Renal Epithelial Cells , Urine Sperm (Auto) , Urine Squamous Epithelial Cells 0, Urine Transitional Epithelial Cells , Urine Trichomonas (Auto) , Urine Triple Phosphate Cryst (Auto) , Urine Tyrosine Crystals , Urine Uric Acid Crystals (Auto) , Urine WBC (Auto) 60H, Urine Waxy Casts (Auto) , Urine Yeast-Like Cells (Auto) 12/06/16 08:26: Lactic Acid Level 1.9 CBC/BMP Laboratory Tests 12/06/16 05:40 Red Blood Count 4.01 L, Mean Corpuscular Volume 103.7 H, Mean Corpuscular Hemoglobin 34.6 H, Mean Corpuscular Hemoglobin Concent 33.3, Red Cell Distribution Width 13.0, Neutrophils (%) (Auto) , Lymphocytes (%) (Auto) , Monocytes (%) (Auto) , Eosinophils (%) (Auto) , Basophils (%) (Auto) , Neutrophils # (Auto) , Lymphocytes # (Auto) , Monocytes # (Auto) , Eosinophils # (Auto) , Basophils # (Auto) Microbiology Microbiology 12/06/16 Urine Culture, Received Pending (1) Acute metabolic encephalopathy Status: Acute Assessment & Plan: was febrile and has a pneumonia (2) Pneumonia Status: Acute Assessment & Plan: possibly aspiration or community acquired pneumonia will treat with ceftriaxone, azithromycin and metronidazole (3) Hiatal hernia Status: Chronic Assessment & Plan: will continue with PPI and tums (4) Diverticulosis Status: Chronic (5) Glaucoma Status: Chronic (6) CKD (chronic kidney disease), stage III Status: Chronic Assessment & Plan: baseline creatinine 1.4 to 1.6 creatinine almost at baseline. will continue to monitor. Plan / VTE VTE Prophylaxis Ordered?: Yes CINTIA JONES MD Dec 06, 2016 14:32
[2016-12-06] MEDS: NS 1,000 ML IV SCH (14:59)
[2016-12-06] MEDS: metroNIDAZOLE 500 MG in APPROPRIATE DILUENT 1 EA IV SCH ×2 (14:59→22:04)
[2016-12-06] MEDS ORDERED: METOCLOPRAMIDE INJ 10MG/2ML VIAL (J2765) IV PRN (18:30)
[2016-12-06] MEDS ORDERED: METOCLOPRAMIDE INJ 10MG/2ML VIAL (J2765) As Ordered ONE (18:31)
[2016-12-06] MEDS ORDERED: PANTOPRAZOLE 40MG INJ (PROTONIX) (C9113) IV ONE (18:45)
[2016-12-06] MEDS: LATANOPROST 0.005% OPHTH SOLN 2.5 ML OU SCH (21:16)
[2016-12-06 22:00] VITALS: BP 95/54
[2016-12-07] MEDS: NS 1,000 ML IV SCH ×2 (03:57→15:02)
[2016-12-07 06:00] VITALS: BP 109/54
[2016-12-07] MEDS: metroNIDAZOLE 500 MG in APPROPRIATE DILUENT 1 EA IV SCH ×3 (06:00→22:53)
[2016-12-07 06:28] LABS: CALCIUM LEVEL 8.9 MG/DL (8.8-10.2); CREATININE FOR GFR 1.64 MG/DL (0.70-1.30); GLOMERULAR FILTRATION RATE 42.3 (>35); POTASSIUM SERUM 4.4 MEQ/L (3.5-5.1)
[2016-12-07 07:10] LABS: BASO % 0.1 % (0.0-1.0); LARGE UNSTAINED CELL # 0.1 K/mm3 (0.0-0.4); LARGE UNSTAINED CELL % 0.4 % (0.0-4.0); LYMPH # 0.2 K/mm3 (1.5-4.5); MEAN CORPUSCULAR HEMOGLOBIN 34.5 pg (27.0-33.0); MEAN CORPUSCULAR HGB CONC 32.9 g/dl (32.0-36.5); MEAN CORPUSCULAR VOLUME 104.8 fl (80.0-96.0); MONO # 0.2 K/mm3 (0.0-0.8); NEUTROPHILS # 17.1 K/mm3 (1.8-7.7); NEUTROPHILS % 97.4 % (36.0-66.0); PLATELET COUNT, AUTOMATED 152 k/mm3 (150-450); WHITE BLOOD COUNT 17.6 K/mm3 (4.0-10.0)
[2016-12-07] MEDS: cefTRIAXone SOD 1 GM in D5W MINI-BAG PLUS 50 ML IV SCH (09:16)
[2016-12-07] MEDS: ENOXAPARIN 30 MG/0.3 ML SYR (J1650) SC SCH (09:16)
[2016-12-07] MEDS: PANTOPRAZOLE 40MG INJ (PROTONIX) (C9113) IV SCH ×2 (09:16→21:08)
[2016-12-07] MEDS: AZITHROMYCIN 250 MG TAB PO SCH (09:16)
[2016-12-07] MEDS: SENOKOT S TAB PO SCH (09:16)
[2016-12-07 14:00] VITALS: BP 107/56
[2016-12-07] MEDS ORDERED: SENOKOT S TAB PO PRN (17:00)
[2016-12-07] MEDS: LATANOPROST 0.005% OPHTH SOLN 2.5 ML OU SCH (21:08)
[2016-12-08] MEDS: metroNIDAZOLE 500 MG in APPROPRIATE DILUENT 1 EA IV SCH (06:18)
[2016-12-08] MEDS: NS 1,000 ML IV SCH (06:18)
[2016-12-08 06:26] LABS: BASO % 0.1 % (0.0-1.0); EOS # 0.1 K/mm3 (0.0-0.50); EOS % 0.7 % (0.0-3.0); LARGE UNSTAINED CELL # 0.1 K/mm3 (0.0-0.4); LARGE UNSTAINED CELL % 1.1 % (0.0-4.0); LYMPH # 0.4 K/mm3 (1.5-4.5); LYMPH % 3.4 % (24.0-44.0); MEAN CORPUSCULAR HEMOGLOBIN 33.2 pg (27.0-33.0); MEAN CORPUSCULAR HGB CONC 32.1 g/dl (32.0-36.5); MEAN CORPUSCULAR VOLUME 103.7 fl (80.0-96.0); MONO # 0.2 K/mm3 (0.0-0.8); MONO % 1.8 % (0.0-5.0); NEUTROPHILS # 12.1 K/mm3 (1.8-7.7); NEUTROPHILS % 92.9 % (36.0-66.0); PLATELET COUNT, AUTOMATED 151 k/mm3 (150-450)
[2016-12-08 06:40] LABS: CALCIUM LEVEL 8.4 MG/DL (8.8-10.2); CREATININE FOR GFR 1.4 MG/DL (0.70-1.30); GLOMERULAR FILTRATION RATE 50.8 (>35); POTASSIUM SERUM 3.6 MEQ/L (3.5-5.1)
--- NOTE | 2016-12-08 07:30 | IPNPDOC ---
Assessment/Plan Date Seen The patient was seen on 12/07/16. Problems Problems: (1) Diarrhea Status: Acute Problem Text: * pt presented to ED after he had multiple episodes of diarrhea and vomiting * Cdiff pending * will order Gi panel * continue current antibiotics including flagyl * continue to monitor blood pressure * will start pt on gentle hydration (2) Acute metabolic encephalopathy Status: Resolved Response to Treatment: Improving Problem Text: was febrile and has a pneumonia continue antibiotics (3) Pneumonia Status: Acute Problem Text: possibly aspiration or community acquired pneumonia continue ceftriaxone, azithromycin and metronidazole (4) Hiatal hernia Status: Chronic Problem Text: will continue with PPI and tums (5) Diverticulosis Status: Chronic (6) Glaucoma Status: Chronic (7) CKD (chronic kidney disease), stage III Status: Chronic Problem Text: baseline creatinine 1.4 to 1.6 creatinine almost at baseline. will continue to monitor. (8) Leukocytosis Status: Acute Problem Text: * improving, unknown if due to Pneumonia vs Gi infection * continue current antibiotics Plan / VTE VTE Prophylaxis Ordered?: Yes Subjective Review of Systems CC/HPI The patient is a 89-year-old male admitted with a reason for visit of Pneumonia. Events since last encounter pt seen and examined, states he feels much better today, no fevers overnight no events per nursing Constitutional: Denies: Chills, Fever, Malaise, Night Sweats, Weakness Pulmonary: Denies: Cough, Dyspnea Cardiovascular: Denies: Chest Pain, Lt Headedness, Orthopnea, Palpitations, Paroxysmal Noc. Dyspnea Objective Physical Examination General Exam: Positive: Alert, Cooperative, No Acute Distress Eye Exam: Positive: Conjunctiva & lids normal, EOMI, PERRLA, Negative: Sclera icteric ENT Exam: Positive: Atraumatic, Mucous membr. moist/pink, Pharynx Normal Neck Exam: Positive: Supple, Negative: JVD, thyromegaly Chest Exam: Positive: Normal air movement, Rales Heart Exam: Positive: Normal S1, Normal S2, Rate Normal, Regular Rhythm, Negative: Murmurs, Rubs Abdomen Exam: Positive: Normal bowel sounds, Soft, Negative: Hepatospenomegaly Extremity Exam: Positive: Normal pulses, Negative: Clubbing, Cyanosis, Edema Vital Signs/I&O Vital Signs Date Time Temp Pulse Resp B/P Pulse Ox O2 Delivery O2 Flow Rate FiO2 12/07/16 16:23 98.0 12/07/16 14:00 97 18 107/56 90 Room Air 12/06/16 22:00 2.0 I&O- Last 24 Hours up to 6 AM 12/07/16 06:00 Intake Total 1970 ml Output Total 775 ml Balance 1195 ml Laboratory Data Labs 24H Laboratory Tests 2 12/07/16 05:19: Anion Gap 7L, White Blood Count 17.6H, Red Blood Count 3.64L, Hemoglobin 12.6L, Hematocrit 38.1L, Mean Corpuscular Volume 104.8H, Mean Corpuscular Hemoglobin 34.5H, Mean Corpuscular Hemoglobin Concent 32.9, Red Cell Distribution Width 13.0, Platelet Count 152, Neutrophils (%) (Auto) 97.4H, Lymphocytes (%) (Auto) 1.0L, Monocytes (%) (Auto) 1.0, Eosinophils (%) (Auto) 0.0, Basophils (%) (Auto ) 0.1, Neutrophils # (Auto) 17.1H, Lymphocytes # (Auto) 0.2L, Monocytes # (Auto ) 0.2, Eosinophils # (Auto) 0.0, Basophils # (Auto) 0.0, Blood Urea Nitrogen 28H , Creatinine 1.64H, Sodium Level 143, Potassium Level 4.4#, Chloride Level 109H , Carbon Dioxide Level 27, Calcium Level 8.9, Glomerular Filtration Rate 42.3, Large Unclassified Cells # 0.1, Large Unclassified Cells % 0.4 CBC/BMP Laboratory Tests 12/07/16 05:19 Calcium Level 8.9, Red Blood Count 3.64 L, Mean Corpuscular Volume 104.8 H, Mean Corpuscular Hemoglobin 34.5 H, Mean Corpuscular Hemoglobin Concent 32.9, Red Cell Distribution Width 13.0, Neutrophils (%) (Auto) 97.4 H, Lymphocytes (% ) (Auto) 1.0 L, Monocytes (%) (Auto) 1.0, Eosinophils (%) (Auto) 0.0, Basophils (%) (Auto) 0.1, Neutrophils # (Auto) 17.1 H, Lymphocytes # (Auto) 0.2 L, Monocytes # (Auto) 0.2, Eosinophils # (Auto) 0.0, Basophils # (Auto) 0.0 Microbiology Microbiology 12/06/16 Urine Culture - Final, Complete LUIS ENRIQUE MAYER DO Dec 07, 2016 22:35
[2016-12-08] MEDS ORDERED: INFLUENZA VIRUS VACCINE HIGH DOSE 0.5 ML SYRINGE (90662) IM ONE (09:00)
[2016-12-08] MEDS: AZITHROMYCIN 250 MG TAB PO SCH (09:56)
[2016-12-08] MEDS: PANTOPRAZOLE 40MG INJ (PROTONIX) (C9113) IV SCH (09:56)
[2016-12-08] MEDS: ENOXAPARIN 30 MG/0.3 ML SYR (J1650) SC SCH (09:57)
[2016-12-08] MEDS: cefTRIAXone SOD 1 GM in D5W MINI-BAG PLUS 50 ML IV SCH (09:57)
--- NOTE | 2016-12-08 11:51 | EDDOCDS ---
Physician Documentation [facility] Name: Que Nam Jr Age: 89 yrs Sex: Male : 1925 Arrival Date: 12/06/2016 Time: 05:28 Bed 3 Private MD: Juan M Burnett Disposition: 12/06 09:36 Critical Care: Critical care not applicable. Disposition: 12/06/16 09:36 Hospitalization ordered by Candelaria Parsons for Inpatient Admission. Preliminary diagnosis is Bronchopneumonia, unspecified organism - RML. - Bed requested for 4 [place]. - Status is Inpatient Admission. [facility] - Condition is Stable. - Problem is new. - Symptoms have improved. Historical: - Allergies: No known drug Allergies; - Home Meds: 1. Travatan Z 0.004 % ophthalmic drop - PMHx: Macular Degeneration; - PSHx: Hip Arthroplasty, Right; - Social history: Smoking status: Patient states former smoker of tobacco. Patient uses alcohol on a daily basis. Patient/guardian denies using street drugs, No barriers to communication noted, The patient speaks fluent Kiswahili. - Family history: Not pertinent. - : The pt / caregiver states he / she is not on anticoagulants. Home medication list is obtained from the patient. - Exposure Risk Screening:: None identified. Vital Signs: 05:44 BP 102 / 60; Pulse 96; Resp 18; Temp 97.8(O); Pulse Ox 91% on R/A; Pain 2/10; jp6 05:50 Weight 66.22 kg / 145.99 lbs; Height 5 ft. 10 in. (177.80 cm); jp6 06:00 BP 97 / 51 (auto/); jp6 06:00 Pulse 92 MON; Pulse Ox 93% ; jp6 06:15 BP 102 / 59 (auto/); jp6 06:15 Pulse 90 MON; Pulse Ox 92% ; jp6 06:45 BP 103 / 56 (auto/); jp6 06:45 Pulse 94 MON; jp6 06:45 Resp 16; Pulse Ox 97% on R/A; jp6 07:00 BP 104 / 58 (auto/); dls 07:00 Pulse 92 MON; Pulse Ox 90% ; dls 07:15 BP 100 / 55 (auto/); dls 07:15 Pulse 89 MON; Pulse Ox 90% ; dls 07:30 BP 100 / 55 (auto/); dls 07:30 Pulse 91 MON; Pulse Ox 89% ; dls 07:45 BP 98 / 55 (auto/); dls 07:45 Pulse 92 MON; Pulse Ox 90% ; dls 08:00 BP 84 / 51 (auto/); dls 08:00 Pulse 89 MON; Pulse Ox 91% ; dls 08:15 BP 87 / 49 (auto/); dls 08:21 Pulse 92 MON; Pulse Ox 86% ; dls 08:36 BP 89 / 61 (auto/); dls 08:36 Pulse 102 MON; Pulse Ox 78% ; dls 08:45 BP 112 / 55 (auto/); js13 08:45 Pulse 88 MON; Resp 16; Pulse Ox 92% on R/A; js13 09:00 BP 112 / 57 (auto/); js13 09:00 Pulse 86 MON; Resp 16; Pulse Ox 91% on R/A; js13 09:15 BP 116 / 61 (auto/); js13 09:15 Pulse 88 MON; Resp 16; Pulse Ox 95% on 2 lpm NC; js13 09:30 BP 117 / 69 (auto/); js13 09:30 Pulse 84 MON; Resp 16; Pulse Ox 97% on 2 lpm NC; js13 09:45 BP 128 / 61 (auto/); js13 09:45 Pulse 87 MON; Resp 16; Pulse Ox 95% on 2 lpm NC; js13 10:00 BP 115 / 56 (auto/); js13 10:00 Pulse 89 MON; Resp 16; Pulse Ox 92% on 2 lpm NC; js13 10:15 BP 112 / 58 (auto/); js13 10:15 Pulse 89 MON; Resp 16; Temp 98.0(O); Pulse Ox 97% on 2 lpm NC; js13 05:50 Body Mass Index 20.95 (66.22 kg, 177.80 cm) jp6 05:44 hands are cold jp6 MDM: 05:33 ECG WITH READING ER PHYS+CARDIAG ordered. EDMS 05:56 Ondansetron 4 mg IVP once ordered. mm11 05:56 IV Saline Lock ordered. mm11 05:56 Undress patient appropriately for examination ordered. mm11 05:56 Shaper Setter/Pulse Ox/q 30 min VS ordered. mm11 05:56 NS 0.9% 500 ml IV at bolus once ordered. mm11 05:58 NOTHING BY MOUTH+DIET ordered. EDMS 05:58 Amylase Ordered. EDMS 05:58 Basic Metabolic Profile Ordered. EDMS 05:58 CBC with Diff Ordered. EDMS 05:58 Cardiac Injury Profile Ordered. EDMS 05:58 Lipase Ordered. EDMS 05:58 Liver Profile Ordered. EDMS 05:58 Troponin Ordered. EDMS 05:58 Chest, 1 View Ordered. EDMS 06:33 DIFFERENTIAL NO CHARGE Ordered. EDMS 06:41 Basic Metabolic Profile Reviewed. mm11 06:41 CBC with Diff Reviewed. mm11 06:41 Liver Profile Reviewed. mm11 06:41 Amylase Reviewed. mm11 06:41 Cardiac Injury Profile Reviewed. mm11 06:41 Lipase Reviewed. mm11 06:41 Troponin Reviewed. mm11 07:31 CBC with Diff Reviewed. mm11 07:31 PLATELET ESTIMATE Reviewed. mm11 07:52 UA Ordered. EDMS 07:52 Urine Culture Ordered. EDMS 07:52 CT Chest Without Contrast Ordered. EDMS 07:52 CT ABD & PELVIS: No Contrast Ordered. EDMS 07:52 Lactic Acid (Scott tube on ice) Ordered. EDMS 09:03 [facility] Payment Agreement was scanned into SET and attached to record. jp5 09:03 Financial registration complete. jp5 09:04 UA Reviewed. pc 09:08 cefTRIAXone 1 grams IVPB once over 30 mins; dilute in 50mL of NS or D5W ordered. pc 09:08 azithromycin 500 mg IVPB once over 1 hrs; dilute in 250mL of D5W or NS ordered. pc 09:08 Oxygen 2L via NC, titrate to maintain PO >95% ordered. pc 09:08 BED REQUEST+ADM ordered. EDMS 09:36 Test interpretation: interpreted by Radiologist and personally reviewed, Abdomen/Pelvis pc CT; large hiatal hernia containing transverse colon Chest CT; RML infiltrate, hiatal hernia . The patient has been re-examined and re-evaluated. The patient's symptoms have mildly improved after treatment. Physician consultation: Dr. Candelaria Parsons was contacted at 09:37, regarding admission. Disposition: The historical points, examination findings, and any diagnostic results supporting the provided diagnosis, were discussed with the patient or legal guardian. The need for further work-up and/or treatment in the hospital was explained. 10:01 Admission / Observation Status ordered. EDMS 10:01 REGULAR DIET ordered. EDMS 14:54 T-Sheet-- Draft Copy was scanned into SET and attached to record. gb 14:54 ECG/EKG was scanned into [employer] and attached to record. gb Administered Medications: 06:06 Drug: NS 0.9% 500 ml [sodium chloride 0.9 % intravenous solution] Route: IV; Rate: jp6 bolus; Site: left forearm; 06:39 Not Given (pt was given zofran just prior to arrival by ems): Ondansetron 4 mg IVP once jp6 09:18 Drug: cefTRIAXone 1 grams [ceftriaxone 1 gram solution for injection] Route: IVPB; js13 Infused Over: 30 mins; Site: left forearm; 09:45 Follow up: IV Status: Completed infusion; IV Intake: 50ml js13 09:45 Drug: azithromycin 500 mg [azithromycin 500 mg intravenous solution] Route: IVPB; js13 Infused Over: 1 hrs; Site: left forearm; 10:40 Follow up: IV Intake: 250ml js13 10:40 Follow up: IV Status: Completed infusion js13 Signatures: Dispatcher [employer] EDIA Joshua Barakat MD MD pc Jobson, Karen, JAMAR RN Rose Sanchez, Reg Reg gb Spencer Gamino, DO mm11 Ivone Dong jp5 Kelly Chavis,RN RN jp6 Fani Florez, JAMAR RN Morenita Carbone RN js13 The chart was reviewed and I authenticate all verbal orders and agree with the evaluation and treatment provided.Attachments: 09:03 [facility] Payment Agreement jp5 14:54 T-Sheet-- Draft Copy gb 14:54 ECG/EKG gb Chart Complete [facility]
--- NOTE | 2016-12-08 11:51 | EDDOCDS ---
Nurse's Notes [facility] Name: Que Nam Jr Age: 89 yrs Sex: Male : 1925 Arrival Date: 12/06/2016 Time: 05:28 Bed 3 Private MD: Juan M Burnett Diagnosis: Bronchopneumonia, unspecified organism-[facility] Presentation: 12/06 05:42 Presenting complaint: EMS states: pt at home w/ n/vd since yesterday not feeling jp6 well-c/o right sided rib area pain low b/p. Aspirin was taken [employer]. Adult Sepsis Screening: The patient does not have new or worsening altered mentation. Patient's respiratory rate is less than 22. Systolic blood pressure is greater than 100. Patient has a qSOFA score of 0- Negative Sepsis Screen. Suicide/Homicide risk assessment- the patient denies having any suicidal and/or homicidal ideations and does not present with any other emotional, behavioral or mental health complaints. Status:. Transition of care: patient was not received from another setting of care. 05:42 Acuity: GISELLE Level 2 [facility] 05:42 Method Of Arrival: Ambulance 6 Triage Assessment: 05:44 General: Appears in no apparent distress, comfortable, slender, well developed, well jp6 nourished, well groomed, Behavior is appropriate for age, cooperative. Pain: Location: chest-right chest/rib area Pain currently is 2 out of 10 on a pain scale. Pain does not radiate. Quality of pain is described as aching. The patient is triaged at the bedside. See Assessment in Nurses Notes section of ED record. Neurological: Level of Consciousness is awake, alert, Oriented to person, place, time. 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 Cardiovascular: Capillary refill is > 3 seconds is sluggish hands are cold. Heart tones S2 present Chest pain is described as mild, quality is ache is located in right radiates Does not radiate. episodes are intermittent began 4 hours prior to arrival. Respiratory: Airway is patent Respiratory effort is even, unlabored, Respiratory pattern is regular, symmetrical, Breath sounds are clear bilaterally. GI: No deficits noted. Abdomen is flat, non- distended Bowel sounds present X 4 quads. Abd is soft and non tender X 4 quads. : No deficits noted. Derm: Skin is pink, warm & dry. Musculoskeletal: No deficits noted. Historical: - Allergies: No known drug Allergies; - Home Meds: 1. Travatan Z 0.004 % ophthalmic drop - PMHx: Macular Degeneration; - PSHx: Hip Arthroplasty, Right; - Social history: Smoking status: Patient states former smoker of tobacco. Patient uses alcohol on a daily basis. Patient/guardian denies using street drugs, No barriers to communication noted, The patient speaks fluent Macanese. - Family history: Not pertinent. - : The pt / caregiver states he / she is not on anticoagulants. Home medication list is obtained from the patient. - Exposure Risk Screening:: None identified. Screenin:50 Screening information is obtained from the patient. 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 Assistance ADL's: requires no assistance with activities of daily living. Abuse/DV Screen: The patient / caregiver reports he/she is: not in a situation that causes fear, pain or injury. Nutritional screening: No deficits noted. home support is adequate. 06:15 Advance Directives: Currently, there is no health care proxy. There is no active DNR jp6 order. There is no living will. Assessment: 05:50 General: see triage assessment. jp6 06:19 Reassessment: Patient appears in no apparent distress at this time. Patient states jp6 symptoms have improved. General: Behavior is appropriate for age, cooperative. Pain: Denies pain. Cardiovascular: Rhythm is sinus rhythm No ectopy. Respiratory: Airway is patent Respiratory effort is even, unlabored, Respiratory pattern is regular, symmetrical. Derm: Skin is pink, warm & dry. 07:52 General: Pt sleeping vital signs remain stable Daughter at the bedside.. dls 08:40 General: Pt to CT via stretcher and returned additional lab work drawn and pt stood to dls void ua spec obtained pt remains hypotensive.. 09:23 Adult Sepsis Screening: The patient does not have new or worsening altered mentation. js13 Patient's respiratory rate is less than 22. Systolic blood pressure is greater than 100. Patient has a qSOFA score of 0- Negative Sepsis Screen. General: Appears in no apparent distress, Behavior is appropriate for age, cooperative. Pain: Denies pain. Neurological: Level of Consciousness is awake, alert. Cardiovascular: Rhythm is sinus rhythm Chest pain is denied. Respiratory: Airway is patent Respiratory effort is even, unlabored, Respiratory pattern is regular, symmetrical, Breath sounds are diminished. Derm: Skin is pink, warm & dry. 09:40 General: Appears in no apparent distress, comfortable. Neurological: Level of js13 Consciousness is awake, alert. Respiratory: Airway is patent Respiratory effort is even, unlabored, Respiratory pattern is regular. Derm: Skin is pink, warm & dry. 10:27 General: Appears in no apparent distress, comfortable, Behavior is appropriate for age, js13 cooperative. Pain: Denies pain. Neurological: Level of Consciousness is awake, alert. Cardiovascular: Rhythm is sinus rhythm Chest pain is denied. Respiratory: Airway is patent Respiratory effort is even, unlabored, Respiratory pattern is regular, symmetrical, Breath sounds are diminished. Derm: Skin is pink, warm & dry. Vital Signs: 05:44 BP 102 / 60; Pulse 96; Resp 18; Temp 97.8(O); Pulse Ox 91% on R/A; Pain 2/10; jp6 05:50 Weight 66.22 kg; Height 5 ft. 10 in. (177.80 cm); jp6 06:00 BP 97 / 51 (auto/); jp6 06:00 Pulse 92 MON; Pulse Ox 93% ; jp6 06:15 BP 102 / 59 (auto/); jp6 06:15 Pulse 90 MON; Pulse Ox 92% ; jp6 06:45 BP 103 / 56 (auto/); jp6 06:45 Pulse 94 MON; jp6 06:45 Resp 16; Pulse Ox 97% on R/A; jp6 07:00 BP 104 / 58 (auto/); dls 07:00 Pulse 92 MON; Pulse Ox 90% ; dls 07:15 BP 100 / 55 (auto/); dls 07:15 Pulse 89 MON; Pulse Ox 90% ; dls 07:30 BP 100 / 55 (auto/); dls 07:30 Pulse 91 MON; Pulse Ox 89% ; dls 07:45 BP 98 / 55 (auto/); dls 07:45 Pulse 92 MON; Pulse Ox 90% ; dls 08:00 BP 84 / 51 (auto/); dls 08:00 Pulse 89 MON; Pulse Ox 91% ; dls 08:15 BP 87 / 49 (auto/); dls 08:21 Pulse 92 MON; Pulse Ox 86% ; dls 08:36 BP 89 / 61 (auto/); dls 08:36 Pulse 102 MON; Pulse Ox 78% ; dls 08:45 BP 112 / 55 (auto/); js13 08:45 Pulse 88 MON; Resp 16; Pulse Ox 92% on R/A; js13 09:00 BP 112 / 57 (auto/); js13 09:00 Pulse 86 MON; Resp 16; Pulse Ox 91% on R/A; js13 09:15 BP 116 / 61 (auto/); js13 09:15 Pulse 88 MON; Resp 16; Pulse Ox 95% on 2 lpm NC; js13 09:30 BP 117 / 69 (auto/); js13 09:30 Pulse 84 MON; Resp 16; Pulse Ox 97% on 2 lpm NC; js13 09:45 BP 128 / 61 (auto/); js13 09:45 Pulse 87 MON; Resp 16; Pulse Ox 95% on 2 lpm NC; js13 10:00 BP 115 / 56 (auto/); js13 10:00 Pulse 89 MON; Resp 16; Pulse Ox 92% on 2 lpm NC; js13 10:15 BP 112 / 58 (auto/); js13 10:15 Pulse 89 MON; Resp 16; Temp 98.0(O); Pulse Ox 97% on 2 lpm NC; js13 05:50 Body Mass Index 20.95 (66.22 kg, 177.80 cm) jp6 05:44 hands are cold jp6 Vitals: 05:44 Log In Time N/A - ambulance arrival. jp6 ED Course: 05:29 Patient visited by Jeff Polanco PCA. kb5 05:29 Juan M Burnett MD is Private Physician. kb5 05:29 Patient moved to Waiting kb5 05:29 Patient moved to 3 kb5 05:39 Patient visited by Citlalli Clark PCA. manohar 05:39 Pt greeted and oriented to ED. Patient advised of names of staff involved in care, manohar location of call [place], wait times and NPO status. Patient has correct armband on for positive identification. Placed in gown. Bed in low position. Call light in reach. Side rails up X2. color television console monitor on. Pulse ox on. NIBP on. 05:39 EKG done. (by ED staff). Reviewed by Spencer Gamino DO. manohar 05:42 Kelly Chavis RN is Primary Nurse. jp6 05:42 Patient visited by Kelly Chavis RN. jp6 05:43 Triage Initiated jp6 05:49 Spencer Gamino DO is Attending Physician. mm11 05:49 Patient visited by Spencer Gamino DO. mm11 05:50 Maintain field IV. Dressing intact. Good blood return noted. Site clean & dry. Gauge & jp6 site: 20g left ac. 05:55 Patient visited by Spencer Gamino DO. mm11 06:06 Amylase Sent. jp6 06:06 Basic Metabolic Profile Sent. jp6 06:06 CBC with Diff Sent. jp6 06:06 Cardiac Injury Profile Sent. jp6 06:06 Lipase Sent. jp6 06:06 Liver Profile Sent. jp6 06:06 Troponin Sent. jp6 06:55 DIFFERENTIAL NO CHARGE Sent. sls1 06:56 Patient visited by Kelly Chavis RN. jp6 07:25 Primary Nurse role handed off by Kelly Chavis RN jlf 07:48 Patient visited by Spencer Gamino DO. mm11 07:50 Report received from Kelly ROLDAN. dls 07:52 Attending Physician role handed off by Spencer Gamino DO pc 07:52 Joshua Barakat MD is Attending Physician. pc 08:38 Lactic Acid (Scott tube on ice) Sent. ct3 08:51 Patient visited by Sherri Galarza PCA. ct3 08:51 Patient visited by Chula Graff RN. dls 09:03 [facility] Payment Agreement was scanned into [employer] and attached to record. jp5 09:25 Patient visited by Morenita Prakash,JAMAR. js13 09:25 No procedures done that require assistance. O2 via nasal cannula \T\ 2L/min. js13 09:36 Candelaria Parsons is Hospitalizing Provider. pc 09:40 Patient visited by Morenita Prakash,JAMAR. js13 09:51 Patient name changed from Que\S\S\S\Nam\S\ to Que\S\S\S\Nam Jr. EDMS 10:15 The patient / caregiver is instructed regarding the plan of care and ED course. js13 14:54 T-Sheet-- Draft Copy was scanned into [employer] and attached to record. gb 14:54 ECG/EKG was scanned into [employer] and attached to record. gb Administered Medications: 06:06 Drug: NS 0.9% 500 ml [sodium chloride 0.9 % intravenous solution] Route: IV; Rate: jp6 bolus; Site: left forearm; 06:39 Not Given (pt was given zofran just prior to arrival by ems): Ondansetron 4 mg IVP once jp6 09:18 Drug: cefTRIAXone 1 grams [ceftriaxone 1 gram solution for injection] Route: IVPB; js13 Infused Over: 30 mins; Site: left forearm; 09:45 Follow up: IV Status: Completed infusion; IV Intake: 50ml js13 09:45 Drug: azithromycin 500 mg [azithromycin 500 mg intravenous solution] Route: IVPB; js13 Infused Over: 1 hrs; Site: left forearm; 10:40 Follow up: IV Intake: 250ml js13 10:40 Follow up: IV Status: Completed infusion js13 Intake: 09:45 IV: 50.00ml; Total: 50.00ml. js13 10:40 IV: 250.00ml; Total: 300.00ml. js13 Order Results: Lab Order: Amylase; SPEC'M 12/06/16 05:40 Test: AMYLASE; Value: 60; Range: 25-115; Units: U/L; Status: F Lab Order: Basic Metabolic Profile; SPEC'M 12/06/16 05:40 Test: GLUCOSE, FASTING; Value: 104; Range: 83-110; Units: MG/DL; Status: F Test: BLOOD UREA NITROGEN; Value: 23; Range: 7-18; Abnormal: Above high normal; Units: MG/DL; Status: F Test: CREATININE FOR GFR; Value: 1.77; Range: 0.70-1.30; Abnormal: Above high normal; Units: MG/DL; Status: F Test: GLOMERULAR FILTRATION RATE; Value: 38.8; Range: >35; Status: F Test: SODIUM LEVEL; Value: 144; Range: 136-145; Units: MEQ/L; Status: F Test: POTASSIUM SERUM; Value: 3.6; Range: 3.5-5.1; Units: MEQ/L; Status: F Test: CHLORIDE LEVEL; Value: 107; Range: 98-107; Units: MEQ/L; Status: F Test: CARBON DIOXIDE LEVEL; Value: 27; Range: 21-32; Units: MEQ/L; Status: F Test: ANION GAP; Value: 10; Range: 8-16; Units: MEQ/L; Status: F Test: CALCIUM LEVEL; Value: 9.4; Range: 8.8-10.2; Units: MG/DL; Status: F Test Note: ; Units are mL/min/1.73 m2 Chronic Kidney Disease Staging per NKF: Stage I & II GFR >=60 Normal to Mildly Decreased Stage III GFR 30-59 Moderately Decreased Stage IV GFR 15-29 Severely Decreased Stage V GFR <15 Very Little GFR Left ESRD GFR <15 on SAND CARRIER Lab Order: CBC with Diff; SPEC'M 12/06/16 05:40 Test: WHITE BLOOD COUNT; Value: 22.4; Range: 4.0-10.0; Abnormal: Above high normal; Units: K/mm3; Status: F Test: RED BLOOD COUNT; Value: 4.01; Range: 4.30-6.10; Abnormal: Below low normal; Units: M/mm3; Status: F Test: HEMOGLOBIN; Value: 13.9; Range: 14.0-18.0; Abnormal: Below low normal; Units: g/dl; Status: F Test: HEMATOCRIT; Value: 41.6; Range: 42.0-52.0; Abnormal: Below low normal; Units: %; Status: F Test: MEAN CORPUSCULAR VOLUME; Value: 103.7; Range: 80.0-96.0; Abnormal: Above high normal; Units: fl; Status: F Test: MEAN CORPUSCULAR HEMOGLOBIN; Value: 34.6; Range: 27.0-33.0; Abnormal: Above high normal; Units: pg; Status: F Test: MEAN CORPUSCULAR HGB CONC; Value: 33.3; Range: 32.0-36.5; Units: g/dl; Status: F Test: RED CELL DISTRIBUTION WIDTH; Value: 13.0; Range: 11.5-14.5; Units: %; Status: F Test: PLATELET COUNT, AUTOMATED; Value: 178; Range: 150-450; Units: k/mm3; Status: F Test: NEUTROPHILS; Value: 79; Range: 35-75; Abnormal: Above high normal; Units: %; Status: F Test: BANDS; Value: 12; Range: < 11; Abnormal: Above high normal; Units: %; Status: F Test: LYMPHOCYTES; Value: 2; Range: 16-52; Abnormal: Below low normal; Units: %; Status: F Test: MONOCYTES; Value: 7; Range: 0-8; Units: %; Status: F Test: MACROCYTOSIS; Value: 1+; Status: F Lab Order: Cardiac Injury Profile; [facility] 12/06/16 05:40 Test: CPK CREATINE PHOSPHOKINASE; Value: 49; Range: 39-308; Units: U/L; Status: F Test: CK-MB VALUE MASS; Value: 1.0; Range: 0.0-3.6; Units: NG/ML; Status: F Test: MB/CK RELATIVE INDEX; Value: 2.04; Range: < OR =4; Status: F Test Note: ; DIAGNOSIS CRITERIA MMB ng/ml Relative Index (RI) NON-AMI < or = 5 N/A [place] > 5 < or = 4 AMI > 5 > 4 Lab Order: Lipase; [facility] 12/06/16 05:40 Test: LIPASE; Value: 358; Range: 73-393; Units: U/L; Status: F Lab Order: Liver Profile; [facility] 12/06/16 05:40 Test: AST/SGOT; Value: 18; Range: 15-37; Units: U/L; Status: F Test: ALT/SGPT; Value: 18; Range: 12-78; Units: U/L; Status: F Test: ALKALINE PHOSPHATASE; Value: 48; Range: 45-117; Units: U/L; Status: F Test: BILIRUBIN,TOTAL; Value: 1.7; Range: 0.2-1.0; Abnormal: Above high normal; Units: MG/DL; Status: F Test: BILIRUBIN,DIRECT; Value: 0.3; Range: 0.0-0.2; Abnormal: Above high normal; Units: MG/DL; Status: F Test: TOTAL PROTEIN; Value: 6.4; Range: 6.4-8.2; Units: GM/DL; Status: F Test: ALBUMIN; Value: 3.4; Range: 3.2-5.2; Units: GM/DL; Status: F Test: ALBUMIN/GLOBULIN RATIO; Value: 1.13; Range: 1.00-1.93; Status: F Lab Order: Troponin; SPEC'M 12/06/16 05:40 Test: TROPONIN I; Value: < 0.02; Range: < 0.10; Units: NG/ML; Status: F Test Note: ; Troponin I Reference Interval for [employer] LOCI: 99th Percentile= 0.00-0.045 ng/ml Risk Stratification: <= 0.10 ng/ml Decreased Risk for Adverse Clinical Events. 0.10-1.50 ng/ml Increased Risk for Adverse Clinical Events. Evaluation of additional criterion and/or repeat testing in 2-6 hours is suggested to rule out myocardial damage. >= 1.50 ng/ml Indicative of Myocardial Injury. Lab Order: PLATELET ESTIMATE; SPEC'M 12/06/16 05:40 Test: PLATELET ESTIMATE; Value: NORMAL; Range: NORMAL; Status: F Lab Order: UA; SPEC' 12/06/16 08:22 Test: APPEARANCE, URINE; Value: HAZY; Range: CLEAR; Status: F Test: COLOR, URINE; Value: YELLOW; Range: YELLOW; Status: F Test: PH,URINE; Value: 5.0; Range: 5.0-9.0; Units: UNITS; Status: F Test: SPECIFIC GRAVITY URINE AUTO; Value: 1.016; Range: 1.002-1.035; Status: F Test: PROTEIN, URINE AUTO; Value: 1+; Range: NEGATIVE; Abnormal: Above high normal; Units: mg/dL; Status: F Test: GLUCOSE, URINE (UA) AUTO; Value: NEGATIVE; Range: NEGATIVE; Units: mg/dL; Status: F Test: KETONE, URINE AUTO; Value: NEGATIVE; Range: NEGATIVE; Units: mg/dL; Status: F Test: UROBILINOGEN, URINE AUTO; Value: 0.2; Range: 0.0-2.0; Units: mg/dL; Status: F Test: BILIRUBIN, URINE AUTO; Value: NEGATIVE; Range: NEGATIVE; Status: F Test: NITRITE, URINE AUTO; Value: NEGATIVE; Range: NEGATIVE; Status: F Test: LEUKOCYTE ESTERASE, URINE AUTO; Value: 3+; Range: NEGATIVE; Abnormal: Above high normal; Status: F Test: BLOOD, URINE BLOOD; Value: 1+; Range: NEGATIVE; Abnormal: Above high normal; Status: F Test: WBC, URINE AUTO; Value: 60; Range: 0-3; Abnormal: Above high normal; Units: /HPF; Status: F Test: RBC, URINE AUTO; Value: 10; Range: 0-3; Abnormal: Above high normal; Units: /HPF; Status: F Test: BACTERIA, URINE AUTO; Value: 1+; Range: NEGATIVE; Abnormal: Above high normal; Status: F Test: SQUAMOUS EPITHELIAL CELL UR AU; Value: 0; Range: 0-6; Units: /HPF; Status: F Test: MUCUS, URINE; Value: LARGE; Range: NEGATIVE; Status: F Test: HYALINE CAST, URINE AUTO; Value: 4; Range: 0-1; Units: /LPF; Status: F Test: AMORPHOUS SEDIMENT; Value: SMALL; Range: NEGATIVE; Abnormal: Above high normal; Status: F Lab Order: Lactic Acid (Scott tube on ice); SPEC'M 12/06/16 08:26 Test: LACTIC ACID LEVEL, LACTATE; Value: 1.9; Range: 0.4-2.0; Units: MMOL/L; Status: F Outcome: 09:36 Decision to Hospitalize by Provider. pc 10:15 Admission hand-off: Report Faxed. js13 10:39 Discharge Assessment: Patient awake, alert and oriented x 3. No cognitive and/or js13 functional deficits noted. Patient verbalized understanding of disposition instructions. patient administered narcotics - no. The following High Risk Discharge criteria are identified: None. Admitted to Med/Surg accompanied by tech, family with patient, via stretcher, with oxygen, with chart. Condition: stable. CT Study completed. Property :Personal belongings accompany Pt. 10:50 Patient left the ED. [facility] Signatures: Dispatcher [employer] EDMS Joshua Barakat MD MD pc Jobson, Karen RN RN lorrie Chula Graff RN RN Rose Vazquez, Reg Reg Jeff Salas, TANK OPERATOR TANK OPERATOR kb5 Spencer Gamino, DO mm11 Citlalli Clark, TANK OPERATOR TANK OPERATOR manohar Sherri Galarza, TANK OPERATOR TANK OPERATOR ct3 Cady Rivera, RN RN sls1 Morenita PrakashRN RN js13 Connie Saunders, TANK OPERATOR TANK OPERATOR Ivone Harman jp5 Kelly Chavis,RN RN jp6 Corrections: (The following items were deleted from the chart) 10:41 10:39 No special radiology studies were completed js13 js13 Chart Complete MTDD
--- NOTE | 2016-12-08 11:51 | EDDOCDS ---
Physician Documentation [facility] Name: Que Nam Jr Age: 89 yrs Sex: Male : 1925 Arrival Date: 12/06/2016 Time: 05:28 Bed 3 Private MD: Juan M Burnett Disposition: 12/06 09:36 Critical Care: Critical care not applicable. Disposition: 12/06/16 09:36 Hospitalization ordered by Candelaria Parsons for Inpatient Admission. Preliminary diagnosis is Bronchopneumonia, unspecified organism - RML. - Bed requested for 4 [place]. - Status is Inpatient Admission. [facility] - Condition is Stable. - Problem is new. - Symptoms have improved. Historical: - Allergies: No known drug Allergies; - Home Meds: 1. Travatan Z 0.004 % ophthalmic drop - PMHx: Macular Degeneration; - PSHx: Hip Arthroplasty, Right; - Social history: Smoking status: Patient states former smoker of tobacco. Patient uses alcohol on a daily basis. Patient/guardian denies using street drugs, No barriers to communication noted, The patient speaks fluent Azeri. - Family history: Not pertinent. - : The pt / caregiver states he / she is not on anticoagulants. Home medication list is obtained from the patient. - Exposure Risk Screening:: None identified. Vital Signs: 05:44 BP 102 / 60; Pulse 96; Resp 18; Temp 97.8(O); Pulse Ox 91% on R/A; Pain 2/10; jp6 05:50 Weight 66.22 kg / 145.99 lbs; Height 5 ft. 10 in. (177.80 cm); jp6 06:00 BP 97 / 51 (auto/); jp6 06:00 Pulse 92 MON; Pulse Ox 93% ; jp6 06:15 BP 102 / 59 (auto/); jp6 06:15 Pulse 90 MON; Pulse Ox 92% ; jp6 06:45 BP 103 / 56 (auto/); jp6 06:45 Pulse 94 MON; jp6 06:45 Resp 16; Pulse Ox 97% on R/A; jp6 07:00 BP 104 / 58 (auto/); dls 07:00 Pulse 92 MON; Pulse Ox 90% ; dls 07:15 BP 100 / 55 (auto/); dls 07:15 Pulse 89 MON; Pulse Ox 90% ; dls 07:30 BP 100 / 55 (auto/); dls 07:30 Pulse 91 MON; Pulse Ox 89% ; dls 07:45 BP 98 / 55 (auto/); dls 07:45 Pulse 92 MON; Pulse Ox 90% ; dls 08:00 BP 84 / 51 (auto/); dls 08:00 Pulse 89 MON; Pulse Ox 91% ; dls 08:15 BP 87 / 49 (auto/); dls 08:21 Pulse 92 MON; Pulse Ox 86% ; dls 08:36 BP 89 / 61 (auto/); dls 08:36 Pulse 102 MON; Pulse Ox 78% ; dls 08:45 BP 112 / 55 (auto/); js13 08:45 Pulse 88 MON; Resp 16; Pulse Ox 92% on R/A; js13 09:00 BP 112 / 57 (auto/); js13 09:00 Pulse 86 MON; Resp 16; Pulse Ox 91% on R/A; js13 09:15 BP 116 / 61 (auto/); js13 09:15 Pulse 88 MON; Resp 16; Pulse Ox 95% on 2 lpm NC; js13 09:30 BP 117 / 69 (auto/); js13 09:30 Pulse 84 MON; Resp 16; Pulse Ox 97% on 2 lpm NC; js13 09:45 BP 128 / 61 (auto/); js13 09:45 Pulse 87 MON; Resp 16; Pulse Ox 95% on 2 lpm NC; js13 10:00 BP 115 / 56 (auto/); js13 10:00 Pulse 89 MON; Resp 16; Pulse Ox 92% on 2 lpm NC; js13 10:15 BP 112 / 58 (auto/); js13 10:15 Pulse 89 MON; Resp 16; Temp 98.0(O); Pulse Ox 97% on 2 lpm NC; js13 05:50 Body Mass Index 20.95 (66.22 kg, 177.80 cm) jp6 05:44 hands are cold jp6 MDM: 05:33 ECG WITH READING ER PHYS+CARDIAG ordered. EDMS 05:56 Ondansetron 4 mg IVP once ordered. mm11 05:56 IV Saline Lock ordered. mm11 05:56 Undress patient appropriately for examination ordered. mm11 05:56 Livestock Sales Representative/Pulse Ox/q 30 min VS ordered. mm11 05:56 NS 0.9% 500 ml IV at bolus once ordered. mm11 05:58 NOTHING BY MOUTH+DIET ordered. EDMS 05:58 Amylase Ordered. EDMS 05:58 Basic Metabolic Profile Ordered. EDMS 05:58 CBC with Diff Ordered. EDMS 05:58 Cardiac Injury Profile Ordered. EDMS 05:58 Lipase Ordered. EDMS 05:58 Liver Profile Ordered. EDMS 05:58 Troponin Ordered. EDMS 05:58 Chest, 1 View Ordered. EDMS 06:33 DIFFERENTIAL NO CHARGE Ordered. EDMS 06:41 Basic Metabolic Profile Reviewed. mm11 06:41 CBC with Diff Reviewed. mm11 06:41 Liver Profile Reviewed. mm11 06:41 Amylase Reviewed. mm11 06:41 Cardiac Injury Profile Reviewed. mm11 06:41 Lipase Reviewed. mm11 06:41 Troponin Reviewed. mm11 07:31 CBC with Diff Reviewed. mm11 07:31 PLATELET ESTIMATE Reviewed. mm11 07:52 UA Ordered. EDMS 07:52 Urine Culture Ordered. EDMS 07:52 CT Chest Without Contrast Ordered. EDMS 07:52 CT ABD & PELVIS: No Contrast Ordered. EDMS 07:52 Lactic Acid (Scott tube on ice) Ordered. EDMS 09:03 [facility] Payment Agreement was scanned into [employer] and attached to record. jp5 09:03 Financial registration complete. jp5 09:04 UA Reviewed. pc 09:08 cefTRIAXone 1 grams IVPB once over 30 mins; dilute in 50mL of NS or D5W ordered. pc 09:08 azithromycin 500 mg IVPB once over 1 hrs; dilute in 250mL of D5W or NS ordered. pc 09:08 Oxygen 2L via NC, titrate to maintain PO >95% ordered. pc 09:08 BED REQUEST+ADM ordered. EDMS 09:36 Test interpretation: interpreted by Radiologist and personally reviewed, Abdomen/Pelvis pc CT; large hiatal hernia containing transverse colon Chest CT; RML infiltrate, hiatal hernia . The patient has been re-examined and re-evaluated. The patient's symptoms have mildly improved after treatment. Physician consultation: Dr. Candelaria Parsons was contacted at 09:37, regarding admission. Disposition: The historical points, examination findings, and any diagnostic results supporting the provided diagnosis, were discussed with the patient or legal guardian. The need for further work-up and/or treatment in the hospital was explained. 10:01 Admission / Observation Status ordered. EDMS 10:01 REGULAR DIET ordered. EDMS 14:54 T-Sheet-- Draft Copy was scanned into [employer] and attached to record. gb 14:54 ECG/EKG was scanned into [id number] Data and attached to record. gb Administered Medications: 06:06 Drug: NS 0.9% 500 ml [sodium chloride 0.9 % intravenous solution] Route: IV; Rate: jp6 bolus; Site: left forearm; 06:39 Not Given (pt was given zofran just prior to arrival by ems): Ondansetron 4 mg IVP once jp6 09:18 Drug: cefTRIAXone 1 grams [ceftriaxone 1 gram solution for injection] Route: IVPB; js13 Infused Over: 30 mins; Site: left forearm; 09:45 Follow up: IV Status: Completed infusion; IV Intake: 50ml js13 09:45 Drug: azithromycin 500 mg [azithromycin 500 mg intravenous solution] Route: IVPB; js13 Infused Over: 1 hrs; Site: left forearm; 10:40 Follow up: IV Intake: 250ml js13 10:40 Follow up: IV Status: Completed infusion js13 Signatures: Dispatcher [employer] EDAZ Joshua Barakat MD MD pc Jobson, Karen, JAMAR RN Rose Sanchez, Reg Reg gb Spencer Gamino, DO mm11 Ivone Dong jp5 Kelly Chavis,RN RN jp6 Fani Florez, JAMAR RN Morenita Carbone RN js13 The chart was reviewed and I authenticate all verbal orders and agree with the evaluation and treatment provided.Attachments: 09:03 [facility] Payment Agreement jp5 14:54 T-Sheet-- Draft Copy gb 14:54 ECG/EKG gb Chart Complete [facility]
[2016-12-08 14:00] VITALS: BP 110/55
[2016-12-08] MEDS ORDERED: metroNIDAZOLE (FLAGYL) 500 MG TAB PO SCH (14:00)
[2016-12-08] MEDS ORDERED: FLAG500T PO (14:59)
--- NOTE | 2016-12-11 21:55 | ECGEPIP ---
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
== END 2016-12-08 15:18 | disposition left against medical advice (07) | DRG 177 ==
LOC: M ED 05:28 → M ED INP 09:56 → M MSPAV 11:01
PROVIDERS: ADMIT Internal Medicine Nephrology; ATTEND Internal Medicine
DX: J69.0 Pneumonitis due to inhalation of food and vomit (principal); G93.41 Metabolic encephalopathy; Z79.899 Other long term (current) drug therapy; Z87.891 Personal history of nicotine dependence; N18.3 Chronic kidney disease, stage 3 (moderate); K57.90 Diverticulosis of intestine, part unspecified, without perforation or abscess without bleeding; H40.9 Unspecified glaucoma; R19.7 Diarrhea, unspecified

== ENCOUNTER 2016-12-13 06:11 | Inpatient (IN) | payer MEDICARE, OTHER ==
[~2016-12-13] VITALS: Ht 177.8 cm; Wt 62.6 kg
[2016-12-13] VITALS (11 sets, daily range): BP systolic 107–170; BP diastolic 64–99
[~2016-12-13 06:11] MED LIST: FLAG500T PO; ROLA1CHW PO; SIMB1SUS OU; TRAV04OPD OU
[2016-12-13 07:14] LABS: VENOUS BASE EXCESS 3.2 (-2.0-2.0); VENOUS O2 SATURATION 47.6 % (60.0-80.0); VENOUS PARTIAL PRESSURE CO2 51.6 mmHg (38.0-50.0); VENOUS PARTIAL PRESSURE O2 27.3 mmHg (30.0-50.0); VENOUS TOTAL CO2 31.1 MEQ/L (24.0-28.0)
[2016-12-13 07:15] LABS: BASO % 0.3 % (0.0-1.0); EOS # 0.2 K/mm3 (0.0-0.50); EOS % 2.4 % (0.0-3.0); LARGE UNSTAINED CELL # 0.2 K/mm3 (0.0-0.4); LARGE UNSTAINED CELL % 2.5 % (0.0-4.0); LYMPH # 0.4 K/mm3 (1.5-4.5); LYMPH % 5.9 % (24.0-44.0); MEAN CORPUSCULAR HGB CONC 33.2 g/dl (32.0-36.5); MEAN CORPUSCULAR VOLUME 102.5 fl (80.0-96.0); MONO # 0.3 K/mm3 (0.0-0.8); MONO % 4.7 % (0.0-5.0); NEUTROPHILS # 5.6 K/mm3 (1.8-7.7); NEUTROPHILS % 84.2 % (36.0-66.0); PLATELET COUNT, AUTOMATED 286 k/mm3 (150-450); RED CELL DISTRIBUTION WIDTH 13.1 % (11.5-14.5); WHITE BLOOD COUNT 6.6 K/mm3 (4.0-10.0)
[2016-12-13] MEDS ORDERED: PERCOCET 5MG/325MG TAB As Ordered ONE (07:19)
[2016-12-13 07:22] LABS: INR 1.1
[2016-12-13 07:43] LABS: ALBUMIN 2.8 GM/DL (3.2-5.2); ALBUMIN/GLOBULIN RATIO 0.76 (1.00-1.93); ALKALINE PHOSPHATASE 61 U/L (45-117); ALT/SGPT 27 U/L (12-78); ANION GAP 7 MEQ/L (8-16); AST/SGOT 15 U/L (15-37); BILIRUBIN,DIRECT 0.1 MG/DL (0.0-0.2); BILIRUBIN,TOTAL 0.7 MG/DL (0.2-1.0); BLOOD UREA NITROGEN 13 MG/DL (7-18); CALCIUM LEVEL 9.2 MG/DL (8.8-10.2); CARBON DIOXIDE LEVEL 30 MEQ/L (21-32); CHLORIDE LEVEL 106 MEQ/L (98-107); CREATININE FOR GFR 1.13 MG/DL (0.70-1.30); GLOMERULAR FILTRATION RATE > 60.0 (>35); GLUCOSE, FASTING 117 MG/DL (83-110); POTASSIUM SERUM 3.8 MEQ/L (3.5-5.1); SODIUM LEVEL 143 MEQ/L (136-145); TOTAL PROTEIN 6.5 GM/DL (6.4-8.2)
[2016-12-13] MEDS ORDERED: SIMB1SUS OU (08:07)
[2016-12-13] MEDS ORDERED: ISOVUE-370 76% 100ML VIAL (Q9967) As Ordered ONE (08:27)
--- NOTE | 2016-12-13 08:42 | REP ---
Portable chest x-ray: Sitting AP view. History: Shortness of breath. Right-sided chest pain. Comparison study December 06, 2016. Findings: The lower half of the right hemithorax is opacified by a large hiatal hernia. There is retrocardiac hernia opacity on the left as well. This is unchanged. There is blunting of the right lateral pleural angle suggesting right pleural effusion. This is a new finding. Lung matamoros are otherwise clear. Pulmonary vasculature is not increased. Heart is mildly enlarged. Impression: Cardiomegaly, large hiatal hernia again noted. New right pleural effusion. Signed by Yash Ramos MD 12/13/2016 02:25 P
--- NOTE | 2016-12-13 10:28 | REP ---
CT ANGIOGRAM CHEST: 12/13/2016. Comparison: Chest CT 12/06/2016, CT angiogram chest 09/27/2014. Technique: 75 ml of Isovue 370 with scanning through the chest with coronal and sagittal thick slab reformats. Findings: The massive hiatal hernia is again seen with the portion of the stomach in the left retrocardiac zone and also stomach and hepatic flexure in the right retrocardiac region. This is unchanged. Heart size unchanged. No pericardial thickening or effusion. There is improvement in the right middle lobe infiltrate in the medial segment right middle lobe and to some extent in the lateral segment but subsegmental atelectatic changes or consolidation of the lateral segment is seen to a lesser extent along with the lateral basal segment right lower lobe. The right effusion now seen measures up to 3.5 cm in thickness. Minor dependent atelectatic change along the major fissures bilaterally. The right lung is without infiltrate or effusion. There is some compressive atelectatic change adjacent to that hiatal hernia in the left retrocardiac region. The aorta is without aneurysm or dissection. The main right and left pulmonary arteries in the mediastinum are without filling defects. No mediastinal or hilar adenopathy. The nodes seen are not of pathologic size and considered normal. There is no axillary or supraclavicular mass. The lobar, segmental and subsegmental pulmonary arteries are without vessel cutoff or filling defect to suggest pulmonary emboli. The upper abdomen shows that portion of liver and spleen included to be unremarkable. No adrenal lesion. Upper poles kidneys seen in part unremarkable. That portion of pancreas included was intact. Bones unchanged. Impression: 1. No CT evidence of pulmonary thromboembolism in the central, lobar, segmental or visible subsegmental arteries. 2. There is now a right pleural effusion up to 3.5 cm thick with improvement in the right middle lobe infiltrates, clearing of the medial segment but with consolidation or atelectasis in the lateral segment of the right middle lobe and also lateral basal segment of the right lower lobe. 3. Left lung clear except for some dependent and compressive atelectatic change adjacent to the major fissure and along the heart border and hernia. 4. A massive hiatal hernia is seen. 5. No upper abdominal abnormality. Signed by Rashel Massey MD 12/13/2016 04:19 P
[2016-12-13] MEDS ORDERED: ZOSYN 3.375 GM VIAL (J2543) As Ordered ONE (10:34)
[2016-12-13] MEDS ORDERED: NS 1,000 ML IV SCH (10:57)
[2016-12-13] MEDS ORDERED: PERCOCET 5MG/325MG TAB PO PRN ×3 (11:00→16:00)
--- NOTE | 2016-12-13 14:10 | EDDOCDS ---
Physician Documentation [facility] Name: Que Nam Age: 89 yrs Sex: Male : 1925 Arrival Date: 12/13/2016 Time: 06:11 Bed 9 Private MD: Disposition: 12/13/16 10:12 Hospitalization ordered by Osmin Warren for Inpatient Admission. Preliminary diagnosis are Pleural effusion in conditions classified elsewhere - rule out empyema, Chest pain, unspecified, Pneumonia, unspecified organism - recent dx; ama and not on antibiotics. - Bed requested for PCU. - Status is Inpatient Admission. hs1 - Condition is Stable. - Problem is new. - Symptoms are unchanged. Historical: - Allergies: No known drug Allergies; - Home Meds: 1. Travatan Z 0.004 % ophthalmic drop - PMHx: Macular Degeneration; - PSHx: Hip Arthroplasty, Right; - Social history: Smoking status: Patient states was never smoker of tobacco. No barriers to communication noted, The patient speaks fluent Croatian. - Family history: Not pertinent. - : The pt / caregiver states he / she is not on anticoagulants. Home medication list is obtained from the patient. - Exposure Risk Screening:: None identified. Vital Signs: 12/13 06:24 BP 120 / 72; Pulse 91; Resp 20; Temp 99.0(TE); Pulse Ox 97% on R/A; Weight 66.22 kg / maonhar 145.99 lbs (R); Height 5 ft. 10 in. (177.80 cm) (R); Pain 8/10; 07:36 BP 123 / 68 (auto/); hs1 07:36 Pulse 74 MON; Pulse Ox 94% ; hs1 07:51 BP 110 / 90 (auto/); hs1 07:51 Pulse 84 MON; Pulse Ox 95% ; hs1 08:06 BP 120 / 61 (auto/); hs1 08:08 Pulse 70 MON; Pulse Ox 94% ; hs1 08:21 BP 122 / 65 (auto/); hs1 08:21 Pulse 70 MON; Resp 18; Pulse Ox 93% ; hs1 08:43 BP 129 / 73 (auto/); hs1 08:43 Pulse 82 MON; Pulse Ox 93% ; hs1 08:50 Pulse 86 MON; Pulse Ox 95% ; hs1 08:51 BP 120 / 68 (auto/); hs1 09:06 BP 148 / 79 (auto/); hs1 09:06 Pulse 86 MON; Pulse Ox 96% ; hs1 09:20 Pulse 80 MON; Pulse Ox 96% ; hs1 09:21 BP 142 / 73 (auto/); hs1 09:35 Pulse 74 MON; Pulse Ox 94% ; hs1 09:36 BP 138 / 78 (auto/); hs1 09:50 Pulse 76 MON; Pulse Ox 94% ; hs1 09:51 BP 129 / 72 (auto/); hs1 10:05 Pulse 64 MON; Pulse Ox 96% ; hs1 10:06 BP 128 / 68 (auto/); hs1 10:18 Pulse 78 MON; Resp 18; Pulse Ox 93% ; hs1 10:21 BP 132 / 74 (auto/); hs1 10:50 Pulse 80 MON; Pulse Ox 96% ; hs1 10:51 BP 144 / 77 (auto/); hs1 11:05 Pulse 78 MON; Pulse Ox 97% ; hs1 11:06 BP 124 / 68 (auto/); hs1 11:21 BP 122 / 73 (auto/); hs1 11:21 Pulse 70 MON; Pulse Ox 96% ; hs1 11:50 Pulse 74 MON; Pulse Ox 97% ; hs1 11:51 BP 154 / 68 (auto/); hs1 12:06 BP 133 / 74 (auto/); hs1 12:07 BP 133 / 74; Pulse 70 MON; Resp 18; Temp 98.4(O); Pulse Ox 96% ; Pain 2/10; hs1 13:52 BP 150 / 82; Pulse 85; Resp 18; Pulse Ox 94% ; hs1 06:24 Body Mass Index 20.95 (66.22 kg, 177.80 cm) manohar MDM: 06:50 -Blood Culture (Adults Only), peripheral from different site, or from device/port/PICC cs11 etc. if present ordered. 06:50 IV Saline Lock ordered. cs11 06:52 -Blood Culture (Adults Only), peripheral from different site, or from device/port/PICC deg etc. if present complete. 06:52 CBC with Diff Ordered. EDMS 06:52 MED Profile Ordered. EDMS 06:52 Pt & Aptt Ordered. EDMS 06:52 Venous Blood Gas (large pea green tube on ice) Ordered. EDMS 06:52 -Blood Culture Ordered. EDMS 06:52 CT Chest Angio R/O PE Ordered. EDMS 06:53 BLOOD CULTURES Ordered. EDMS 07:00 Lactic Acid (Scott tube on ice) Ordered. EDMS 07:04 Chest, 1 View Ordered. EDMS 07:05 ECG WITH READING ER PHYS+CARDIAG ordered. EDMS 07:15 CARDIAC INJURY PROFILE Ordered. EDMS 07:15 oxyCODONE-acetaminophen 5 mg-325 mg 1 tabs PO once ordered. ml 07:15 LIVER PROFILE Ordered. EDMS 07:15 TROPONIN Ordered. EDMS 07:53 BED REQUEST+ADM ordered. EDMS 08:27 CBC with Diff Reviewed. ml 08:27 MED Profile Reviewed. ml 08:27 Venous Blood Gas (large pea green tube on ice) Reviewed. ml 08:27 CARDIAC INJURY PROFILE Reviewed. ml 08:27 LIVER PROFILE Reviewed. ml 08:27 Pt & Aptt Reviewed. ml 08:27 TROPONIN Reviewed. ml 09:01 [facility] Payment Agreement was scanned into [employer] and attached to record. jp5 09:01 Financial registration complete. jp5 09:04 Chest, 1 View Reviewed. ml 10:11 Piperacillin-Tazobactam 3.375 grams IVPB once over 30 mins; dilute in 50mL of NS or D5W ml ordered. 10:57 ED course: requested by dr warren to hold on antibiotics per dr arreola who would like ml to sample pleural fluid. JAMAR Canela aware. [facility]. 11:04 Admission / Observation Status ordered. EDMS 11:04 NPO DIET ordered. EDMS 11:05 Chest, 2 view PA, Lat Ordered. EDMS Administered Medications: 07:27 Drug: oxyCODONE-acetaminophen 1 tabs [oxycodone-acetaminophen 5 mg-325 mg tablet (1 hs1 tabs)] Route: PO; 10:45 Not Given (hold per Rey LOGAN ): Piperacillin-Tazobactam 3.375 grams IVPB once over 30 hs1 mins; dilute in 50mL of NS or D5W Signatures: Dispatcher [employer] EDMS Robert Vital MD MD ml Murray, Denise, [place] [employer] Unit deg Rola Heath RN RN hs1 Jez Kennedy DO DO cs11 Blanca Garcia RN RN ko2 Francia Hough RN RN af2 Ivone Dong jp5 Fani Florez, RN RN dashag The chart was reviewed and I authenticate all verbal orders and agree with the evaluation and treatment provided.Corrections: (The following items were deleted from the chart) 07:14 07:04 CARDIAC INJURY PROFILE+LAB ordered. EDMS EDMS 07:14 07:04 TROPONIN+LAB ordered. EDMS EDMS 07:15 07:00 LIVER PROFILE+LAB ordered. EDMS EDMS Attachments: 09:01 [facility] Payment Agreement jp5 MTDD
--- NOTE | 2016-12-13 14:10 | EDDOCDS ---
Nurse's Notes [facility] Name: Que Nam Age: 89 yrs Sex: Male : 1925 Arrival Date: 12/13/2016 Time: 06:11 Bed 9 Private MD: Diagnosis: Pleural effusion in conditions classified elsewhere-rule out empyema;Chest pain, unspecified;Pneumonia, unspecified organism-recent dx; ama and not on antibiotics Presentation: 12/13 06:21 Presenting complaint: EMS states: right sided chest pain, recently hospitalized for af2 pneumonia and released on Tuesday. states pain increased with breathing. Adult Sepsis Screening: The patient does not have new or worsening altered mentation. Patient's respiratory rate is less than 22. Systolic blood pressure is greater than 100. Patient has a qSOFA score of 0- Negative Sepsis Screen. Suicide/Homicide risk assessment- the patient denies having any suicidal and/or homicidal ideations and does not present with any other emotional, behavioral or mental health complaints. Status: Patient is not a substance abuse services director or dependent. Transition of care: patient was not received from another setting of care. 06:21 Acuity: GISELLE Level 3 af2 06:21 Method Of Arrival: Ambulance af2 Triage Assessment: 06:23 General: Appears in no apparent distress, comfortable, Behavior is appropriate for age, af2 cooperative. Pain: Location: chest Pain currently is 9 out of 10 on a pain scale. Respiratory: Onset: The symptoms/episode began/occurred today, Airway is patent Respiratory effort is even, unlabored, Breath sounds are clear bilaterally. Derm: Skin is normal. Historical: - Allergies: No known drug Allergies; - Home Meds: 1. Travatan Z 0.004 % ophthalmic drop - PMHx: Macular Degeneration; - PSHx: Hip Arthroplasty, Right; - Social history: Smoking status: Patient states was never smoker of tobacco. No barriers to communication noted, The patient speaks fluent Spanish. - Family history: Not pertinent. - : The pt / caregiver states he / she is not on anticoagulants. Home medication list is obtained from the patient. - Exposure Risk Screening:: None identified. Screenin:23 Screening information is obtained from the patient. Fall risk: At risk due to age, The af2 following interventions are performed due to a positive Fall Risk Screen: Fall Risk is added to Special Handling on the patient Summary Screen. A Fall Risk Bracelet was applied to the patient. Side Rails are placed in the up position. A Call Ward is given with instruction to call for help when getting out of bed. Assistance ADL's: requires no assistance with activities of daily living. Abuse/DV Screen: The patient / caregiver reports he/she is: not in a situation that causes fear, pain or injury. Nutritional screening: No deficits noted. Advance Directives: Advance directive information has been placed on a prior [facility] medical record, but the patient/ family does not know when. home support is adequate. Assessment: 06:41 General: Appears in no apparent distress, pt ambulated to the bathroom and back ko2 independently. Neurological: Level of Consciousness is awake, alert. Cardiovascular: Heart tones S1 S2 present. Respiratory: Airway is patent Respiratory effort is even, unlabored, Breath sounds are diminished bilaterally. Derm: Skin is normal. Musculoskeletal: Range of motion intact in all extremities. 07:25 Pain: Location: chest and abdomen Pain currently is 8 out of 10 on a pain scale. hs1 Neurological: No deficits noted. Level of Consciousness is awake, alert, obeys commands, Oriented to person, place, time. Cardiovascular: Rhythm is irregular. Respiratory: Airway is patent Respiratory effort is even, unlabored, Breath sounds are diminished bilaterally. Derm: Skin is fragile, Skin is pink, warm & dry. normal. 08:38 Reassessment: Patient states feeling better. Patient states symptoms have improved. hs1 pain is decreasing, currently patient rates pain 3/10. Patient states feeling better. Patients family continuing at bedside. Pt aware of having CT. . General: Appears in no apparent distress, comfortable. 09:07 Adult Sepsis Screening: The patient does not have new or worsening altered mentation. hs1 Patient's respiratory rate is less than 22. Systolic blood pressure is greater than 100. Patient has a qSOFA score of 0- Negative Sepsis Screen. General: returns from CT with no issues at this time. . 09:43 Reassessment: Patient appears in no apparent distress at this time. Patient states hs1 feeling better. Pt resting aware of test results and continues at this time to be NPO. Son remains at bedside learning about plan of admission and need for possible further work up. No needs from patient at this time. . 10:45 Reassessment: Patient appears in no apparent distress at this time. Pt resting with no hs1 needs at present. Patient aware of waiting for a room. . Pain: Denies pain. Respiratory: Airway is patent Respiratory effort is even, unlabored, Breath sounds are diminished bilaterally. 11:50 General: Pt up to bedside to use urinal at this time 50 cc. Patient has no other needs. hs1 . 12:43 General: Appears in no apparent distress, comfortable, Behavior is appropriate for age, hs1 cooperative. Pain: Denies pain. Cardiovascular: Rhythm is sinus rhythm with 1st degree heart block. Respiratory: Airway is patent Respiratory effort is even, unlabored. Vital Signs: 06:24 BP 120 / 72; Pulse 91; Resp 20; Temp 99.0(TE); Pulse Ox 97% on R/A; Weight 66.22 kg manohar (R); Height 5 ft. 10 in. (177.80 cm) (R); Pain 8/; 07:36 BP 123 / 68 (auto/); hs1 07:36 Pulse 74 MON; Pulse Ox 94% ; hs1 07:51 BP 110 / 90 (auto/); hs1 07:51 Pulse 84 MON; Pulse Ox 95% ; hs1 08:06 BP 120 / 61 (auto/); hs1 08:08 Pulse 70 MON; Pulse Ox 94% ; hs1 08:21 BP 122 / 65 (auto/); hs1 08:21 Pulse 70 MON; Resp 18; Pulse Ox 93% ; hs1 08:43 BP 129 / 73 (auto/); hs1 08:43 Pulse 82 MON; Pulse Ox 93% ; hs1 08:50 Pulse 86 MON; Pulse Ox 95% ; hs1 08:51 BP 120 / 68 (auto/); hs1 09:06 BP 148 / 79 (auto/); hs1 09:06 Pulse 86 MON; Pulse Ox 96% ; hs1 09:20 Pulse 80 MON; Pulse Ox 96% ; hs1 09:21 BP 142 / 73 (auto/); hs1 09:35 Pulse 74 MON; Pulse Ox 94% ; hs1 09:36 BP 138 / 78 (auto/); hs1 09:50 Pulse 76 MON; Pulse Ox 94% ; hs1 09:51 BP 129 / 72 (auto/); hs1 10:05 Pulse 64 MON; Pulse Ox 96% ; hs1 10:06 BP 128 / 68 (auto/); hs1 10:18 Pulse 78 MON; Resp 18; Pulse Ox 93% ; hs1 10:21 BP 132 / 74 (auto/); hs1 10:50 Pulse 80 MON; Pulse Ox 96% ; hs1 10:51 BP 144 / 77 (auto/); hs1 11:05 Pulse 78 MON; Pulse Ox 97% ; hs1 11:06 BP 124 / 68 (auto/); hs1 11:21 BP 122 / 73 (auto/); hs1 11:21 Pulse 70 MON; Pulse Ox 96% ; hs1 11:50 Pulse 74 MON; Pulse Ox 97% ; hs1 11:51 BP 154 / 68 (auto/); hs1 12:06 BP 133 / 74 (auto/); hs1 12:07 BP 133 / 74; Pulse 70 MON; Resp 18; Temp 98.4(O); Pulse Ox 96% ; Pain 2/10; hs1 13:52 BP 150 / 82; Pulse 85; Resp 18; Pulse Ox 94% ; hs1 06:24 Body Mass Index 20.95 (66.22 kg, 177.80 cm) manohar Vitals: 06:43 Log In Time N/A - ambulance arrival. ko2 ED Course: 06:12 Patient visited by Mitchel Wellington, Cue Selector. ml3 06:12 Blanca Garcia,JAMAR is Primary Nurse. ml3 06:12 Patient moved to Waiting ml3 06:12 Patient moved to 9 ml3 06:22 Triage Initiated af2 06:24 Patient visited by Francia Hough,JAMAR. af2 06:24 Patient visited by Citlalli Clark, PRITESH. manohar 06:24 Pt greeted and oriented to ED. Patient advised of names of staff involved in care, manohar location of call ward, wait times and NPO status. Patient has correct armband on for positive identification. Placed in gown. Bed in low position. Call light in reach. Side rails up X2. environmental monitoring specialist on. Pulse ox on. NIBP on. 06:39 Jez Kennedy DO is Attending Physician. cs11 06:39 Patient visited by Jez Kennedy DO. cs11 06:59 Attending Physician role handed off by Jez Kennedy DO ml 06:59 Robert Vital MD is Attending Physician. ml 07:05 Venous Blood Gas (large pea green tube on ice) Sent. ko2 07:06 Pt & Aptt Sent. ko2 07:06 -Blood Culture Sent. ko2 07:06 MED Profile Sent. ko2 07:06 CBC with Diff Sent. ko2 07:06 Inserted saline lock: 20 gauge in left antecubital area and blood collected. ko2 07:18 TROPONIN Sent. hs1 07:18 LIVER PROFILE Sent. hs1 07:18 CARDIAC INJURY PROFILE Sent. hs1 07:27 Patient visited by Rola Heath RN. hs1 07:52 Patient visited by Mario Waters. jml1 07:52 EKG done. (by ED staff). Reviewed by Robert Vital MD. jml1 08:04 Primary Nurse role handed off by Blanca Garcia RN deg 08:53 Patient visited by Rola Heath RN. hs1 08:53 Lactic Acid (Scott tube on ice) Sent. hs1 08:53 BLOOD CULTURES Sent. hs1 08:57 Chest, 1 View Returned. EDMS 09:01 [facility] Payment Agreement was scanned into [employer] and attached to record. jp5 09:08 The patient / caregiver is instructed regarding the plan of care and ED course. hs1 09:39 Rola Heath RN is Primary Nurse. hs1 09:43 Patient visited by Rola Heath RN. hs1 10:11 Osmin Warren MD is Hospitalizing Provider. ml 10:44 CT Chest Angio R/O PE Returned. EDMS 12:00 No procedures done that require assistance. hs1 Administered Medications: 07:27 Drug: oxyCODONE-acetaminophen 1 tabs [oxycodone-acetaminophen 5 mg-325 mg tablet (1 hs1 tabs)] Route: PO; 10:45 Not Given (hold per Rey LOGAN ): Piperacillin-Tazobactam 3.375 grams IVPB once over 30 hs1 mins; dilute in 50mL of NS or D5W Order Results: Lab Order: CBC with Diff; SPEC'M 12/13/16 07:01 Test: WHITE BLOOD COUNT; Value: 6.6; Range: 4.0-10.0; Units: K/mm3; Status: F Test: RED BLOOD COUNT; Value: 3.93; Range: 4.30-6.10; Abnormal: Below low normal; Units: M/mm3; Status: F Test: HEMOGLOBIN; Value: 13.4; Range: 14.0-18.0; Abnormal: Below low normal; Units: g/dl; Status: F Test: HEMATOCRIT; Value: 40.3; Range: 42.0-52.0; Abnormal: Below low normal; Units: %; Status: F Test: MEAN CORPUSCULAR VOLUME; Value: 102.5; Range: 80.0-96.0; Abnormal: Above high normal; Units: fl; Status: F Test: MEAN CORPUSCULAR HEMOGLOBIN; Value: 34.0; Range: 27.0-33.0; Abnormal: Above high normal; Units: pg; Status: F Test: MEAN CORPUSCULAR HGB CONC; Value: 33.2; Range: 32.0-36.5; Units: g/dl; Status: F Test: RED CELL DISTRIBUTION WIDTH; Value: 13.1; Range: 11.5-14.5; Units: %; Status: F Test: PLATELET COUNT, AUTOMATED; Value: 286; Range: 150-450; Units: k/mm3; Status: F Test: NEUTROPHILS %; Value: 84.2; Range: 36.0-66.0; Abnormal: Above high normal; Units: %; Status: F Test: LYMPH %; Value: 5.9; Range: 24.0-44.0; Abnormal: Below low normal; Units: %; Status: F Test: MONO %; Value: 4.7; Range: 0.0-5.0; Units: %; Status: F Test: EOS %; Value: 2.4; Range: 0.0-3.0; Units: %; Status: F Test: BASO %; Value: 0.3; Range: 0.0-1.0; Units: %; Status: F Test: LARGE UNSTAINED CELL %; Value: 2.5; Range: 0.0-4.0; Units: %; Status: F Test: NEUTROPHILS #; Value: 5.6; Range: 1.8-7.7; Units: K/mm3; Status: F Test: LYMPH #; Value: 0.4; Range: 1.5-4.5; Abnormal: Below low normal; Units: K/mm3; Status: F Test: MONO #; Value: 0.3; Range: 0.0-0.8; Units: K/mm3; Status: F Test: EOS #; Value: 0.2; Range: 0.0-0.50; Units: K/mm3; Status: F Test: BASO #; Value: 0.0; Range: 0.0-0.2; Units: K/mm3; Status: F Test: LARGE UNSTAINED CELL #; Value: 0.2; Range: 0.0-0.4; Units: K/mm3; Status: F Lab Order: MED Profile; SPEC'M 12/13/16 07:01 Test: GLUCOSE, FASTING; Value: 117; Range: 83-110; Abnormal: Above high normal; Units: MG/DL; Status: F Test: BLOOD UREA NITROGEN; Value: 13; Range: 7-18; Units: MG/DL; Status: F Test: CREATININE FOR GFR; Value: 1.13; Range: 0.70-1.30; Units: MG/DL; Status: F Test: GLOMERULAR FILTRATION RATE; Value: > 60.0; Range: >35; Status: F Test: SODIUM LEVEL; Value: 143; Range: 136-145; Units: MEQ/L; Status: F Test: POTASSIUM SERUM; Value: 3.8; Range: 3.5-5.1; Units: MEQ/L; Status: F Test: CHLORIDE LEVEL; Value: 106; Range: 98-107; Units: MEQ/L; Status: F Test: CARBON DIOXIDE LEVEL; Value: 30; Range: 21-32; Units: MEQ/L; Status: F Test: ANION GAP; Value: 7; Range: 8-16; Abnormal: Below low normal; Units: MEQ/L; Status: F Test: CALCIUM LEVEL; Value: 9.2; Range: 8.8-10.2; Units: MG/DL; Status: F Test Note: ; Units are mL/min/1.73 m2 Chronic Kidney Disease Staging per NKF: Stage I & II GFR >=60 Normal to Mildly Decreased Stage III GFR 30-59 Moderately Decreased Stage IV GFR 15-29 Severely Decreased Stage V GFR <15 Very Little GFR Left ESRD GFR <15 on ELECTROMECHANICAL ASSEMBLER Lab Order: Pt & Aptt; SPEC'M 12/13/16 07:01 Test: PROTHROMBIN TIME; Value: 14.3; Range: 12.3-14.5; Units: SECONDS; Status: F Test: INR; Value: 1.10; Status: F Test: PARTIAL THROMBOPLASTIN TIME; Value: 29.8; Range: 26.6-37.1; Units: SECONDS; Status: F Test Note: ; THERAPUTIC HUMAN INR VALUES INDICATIONS NORMAL RANGES PROPHYLAXIS/TREATMENT OF: VENOUS THROMBOSIS 2.0-3.0 PULMONARY EMBOLISM 2.0-3.0 PREVENTION OF SYSTEMIC EMBOLISM FROM: TISSUE HEART VALVES 2.0-3.0 ACUTE MYOCARDIAL INFARCTION 2.0-3.0 VALVULAR HEART DISEASE 2.0-3.0 ATRIAL FIBRILLATION 2.0-3.0 MECHANICAL VALVES(HIGH RISK) 2.5-3.5 RECURRENT MYOCARDIAL INFARCTION 2.5-3.5 Lab Order: Venous Blood Gas (large pea green tube on ice); [facility] 12/13/16 07:01 Test: VENOUS PH; Value: 7.375; Range: 7.330-7.430; Units: UNITS; Status: F Test: VENOUS PARTIAL PRESSURE CO2; Value: 51.6; Range: 38.0-50.0; Abnormal: Above high normal; Units: mmHg; Status: F Test: VENOUS PARTIAL PRESSURE O2; Value: 27.3; Range: 30.0-50.0; Abnormal: Below low normal; Units: mmHg; Status: F Test: VENOUS TOTAL CO2; Value: 31.1; Range: 24.0-28.0; Abnormal: Above high normal; Units: MEQ/L; Status: F Test: VENOUS HCO3; Value: 29.5; Range: 23.0-27.0; Abnormal: Above high normal; Units: MEQ/L; Status: F Test: VENOUS BASE EXCESS; Value: 3.2; Range: -2.0-2.0; Abnormal: Above high normal; Status: F Test: VENOUS STANDARD HCO3; Value: 26.0; Units: MEQ/L; Status: F Test: VENOUS O2 SATURATION; Value: 47.6; Range: 60.0-80.0; Abnormal: Below low normal; Units: %; Status: F Lab Order: Lactic Acid (Scott tube on ice); [facility] 12/13/16 08:51 Test: LACTIC ACID SEPSIS PROTOCOL; Value: 0.8; Range: 0.4-2.0; Units: MMOL/L; Status: F Lab Order: CARDIAC INJURY PROFILE; SPEC' 12/13/16 07:01 Test: CPK CREATINE PHOSPHOKINASE; Value: 24; Range: 39-308; Abnormal: Below low normal; Units: U/L; Status: F Test: CK-MB VALUE MASS; Value: 1.0; Range: 0.0-3.6; Units: NG/ML; Status: F Test: MB/CK RELATIVE INDEX; Value: 4.16; Range: < OR =4; Abnormal: Above high normal; Status: F Test Note: ; DIAGNOSIS CRITERIA MMB ng/ml Relative Index (RI) NON-AMI < or = 5 N/A [place] > 5 < or = 4 AMI > 5 > 4 Lab Order: LIVER PROFILE; SPEC'M 12/13/16 07:01 Test: AST/SGOT; Value: 15; Range: 15-37; Units: U/L; Status: F Test: ALT/SGPT; Value: 27; Range: 12-78; Units: U/L; Status: F Test: ALKALINE PHOSPHATASE; Value: 61; Range: 45-117; Units: U/L; Status: F Test: BILIRUBIN,TOTAL; Value: 0.7; Range: 0.2-1.0; Units: MG/DL; Status: F Test: BILIRUBIN,DIRECT; Value: 0.1; Range: 0.0-0.2; Units: MG/DL; Status: F Test: TOTAL PROTEIN; Value: 6.5; Range: 6.4-8.2; Units: GM/DL; Status: F Test: ALBUMIN; Value: 2.8; Range: 3.2-5.2; Abnormal: Below low normal; Units: GM/DL; Status: F Test: ALBUMIN/GLOBULIN RATIO; Value: 0.76; Range: 1.00-1.93; Abnormal: Below low normal; Status: F Lab Order: TROPONIN; SPEC' 12/13/16 07:01 Test: TROPONIN I; Value: < 0.02; Range: < 0.10; Units: NG/ML; Status: F Test Note: ; Troponin I Reference Interval for Siemens [place] LOCI: 99th Percentile= 0.00-0.045 ng/ml Risk Stratification: <= 0.10 ng/ml Decreased Risk for Adverse Clinical Events. 0.10-1.50 ng/ml Increased Risk for Adverse Clinical Events. Evaluation of additional criterion and/or repeat testing in 2-6 hours is suggested to rule out myocardial damage. >= 1.50 ng/ml Indicative of Myocardial Injury. Radiology Order: CT Chest Angio R/O PE Test: CT Chest Angio R/O PE REASON FOR EXAMINATION: Chest Pain; CT ANGIOGRAM CHEST: 12/13/2016.; ; Comparison: Chest CT 12/06/2016, CT angiogram chest 09/27/2014.; ; Technique: 75 ml of Isovue 370 with scanning through the chest with coronal and; sagittal thick slab reformats.; ; Findings: The massive hiatal hernia is again seen with the retrocardiac stomach; in the left retrocardiac zone and also stomach and hepatic flexure in the right; . This is unchanged. Heart size unchanged. No pericardial; thickening or effusion. There is improvement in the right middle lobe infiltrate; in the medial segment right middle lobe and to some extent in the lateral segment; but subsegmental atelectatic changes or consolidation of the lateral segment is; seen to a lesser extent along with the lateral basal segment right lower lobe.; The right effusion now seen measures up to 3.5 cm in thickness. Minor dependent; atelectatic change along the major fissures bilaterally. The right lung is; without infiltrate or effusion. There is some compressive atelectatic change; adjacent to that hiatal hernia in the left retrocardiac region. The aorta is; without aneurysm or dissection. The main right and left pulmonary arteries in; the mediastinum are without filling defects. No mediastinal or hilar adenopathy.; The nodes seen are not of pathologic size and normal. There is; no axillary or supraclavicular mass. The lobar, segmental and subsegmental; pulmonary arteries are without vessel cutoff or filling defect to suggest; pulmonary emboli. The upper abdomen shows that portion of liver and spleen; included to be unremarkable. No adrenal lesion. Upper poles kidneys seen in; part unremarkable. That portion of pancreas included was intact. Bones; unchanged.; ; Impression:; 1. No CT evidence of pulmonary thromboembolism in the central, lobar, segmental; or visible subsegmental arteries.; 2. There is now a right pleural effusion up to 3.5 cm thick with improvement in; the right middle lobe infiltrates, clearing of the medial segment but with; consolidation or atelectasis in the lateral segment of the right middle lobe and; also lateral basal segment of the right lower lobe.; 3. Left lung clear except for some dependent and compressive atelectatic change; adjacent to the major fissure and along the heart border and hernia.; 4. A massive hiatal hernia is seen.; 5. No upper abdominal abnormality.; ; ; ; ; Incomplete; Radiology Order: Chest, 1 View Test: Chest, 1 View REASON FOR EXAMINATION: sob right sided cp; Portable chest x-ray: Sitting AP view.; ; History: Shortness of breath. Right-sided chest pain.; ; Comparison study December 06, 2016.; ; Findings: The lower half of the right hemithorax is opacified by a large hiatal; hernia. There is retrocardiac hernia opacity on the left as well. This is; unchanged. There is blunting of the right lateral pleural angle suggesting right; pleural effusion. This is a new finding. Lung matamoros are otherwise clear.; Pulmonary vasculature is not increased. Heart is mildly enlarged.; ; Impression:; ; Cardiomegaly, large hiatal hernia again noted. New right pleural effusion.; ; ; ; ; Unreviewed; Outcome: 10:12 Decision to Hospitalize by Provider. 13:47 Discharge Assessment: Patient awake, alert and oriented x 3. No cognitive and/or hs1 functional deficits noted. Patient verbalized understanding of disposition instructions. patient administered narcotics - no. The following High Risk Discharge criteria are identified: None. Admitted to PCU accompanied by nurse, accompanied by tech, via wheelchair, on monitor, with chart. Condition: stable. CT Study completed. Property :Personal belongings accompany Pt. 14:09 Patient left the ED. hs1 Signatures: Dispatcher [employer] EDMS Robert Vital MD MD ml Unique [place], Cue Selector Unit deg Mitchel Wellington, Cue Selector Unit ml3 Rola Heath, RN RN hs1 Citlalli Clark, BON[employer] CRE[employer] WARMER B[employer] WARMER manohar Mario Waters jml1 Jez Kennedy, DO cs11 Blanca Garcia RN RN ko2 Francia Hough,RN RN af2 Ivone Dong jp5 Corrections: (The following items were deleted from the chart) 07:14 07:06 TROPONIN+LAB sent. ko2 EDMS 07:14 07:06 CARDIAC INJURY PROFILE+LAB sent. ko2 EDMS 07:15 07:05 LIVER PROFILE+LAB sent. ko2 EDMS MTDD
[2016-12-13] MEDS ORDERED: FLUMAZENIL 0.5 MG/5 ML VIAL As Ordered ONE (14:16)
[2016-12-13] MEDS ORDERED: MIDAZOLAM INJ 2 MG/2 ML VIAL (J2250) As Ordered ONE (14:17)
[2016-12-13] MEDS ORDERED: LIDOCAINE 1% MDV 20ML VIAL As Ordered ONE (14:18)
--- NOTE | 2016-12-13 15:31 | HPE ---
DATE OF ADMISSION: 12/13/2016 REASON FOR ADMISSION: Shortness of breath, right-sided chest pain. HISTORY OF PRESENT ILLNESS: Patient is an 89-year-old male with a past medical history significant for macular degeneration. He was recently hospitalized for pneumonia and was discharged against medical advice on Tuesday after he refused to stay any longer. He received two doses of antibiotics in the hospital and then left. Today, he presents with right-sided chest pain and some shortness of breath. He stated he felt like he should not have left. In the emergency room, CT scan was done showing a new pleural effusion, oxygen saturation was 94% on room air. Hospitalist was called for the admission. CT angiogram showed no pleural effusion (PE) but a new right pleural effusion, 3.5 cm with improvement of the right middle lobe infiltrate, but with consolidation or atelectasis in the lateral segments of the right middle lobe and also lateral basal segment of right lower lobe. The patient denies any fevers or chills. He has been coughing REVIEW OF SYSTEMS: [id number] review of systems was obtained. All of which was negative except for what is mentioned above. PAST MEDICAL HISTORY: Significant for macular degeneration. ALLERGIES: No known drug allergies. HOME MEDICATIONS: Include ophthalmic drops. PAST SURGICAL HISTORY: Right hip arthroplasty. SOCIAL HISTORY: Denies tobacco or alcohol use. Lives at home alone. FAMILY HISTORY: Noncontributory. PHYSICAL EXAMINATION: VITAL SIGNS: Blood pressure 120/72, pulse 91, respiratory rate 20, temperature 99, pulse oximetry 97% on room air. HEENT: Pupils are equal, round and reactive to light and accommodation. NECK: Supple. No jugular venous distention (JVD). LUNGS: Diminished breath sounds on the right side. CARDIOVASCULAR: Regular rate and rhythm. No murmurs appreciated. ABDOMEN: Soft, nontender, nondistended. EXTREMITIES: No clubbing, cyanosis or edema. LABORATORY FINDINGS: WBC 6.6, hemoglobin 13.4, hematocrit 40.3, platelet count 286. Sodium 143, potassium 3.8, chloride 106, BUN 13, creatinine 1.13, glucose 117, lactic acid 0.8, troponin less than 0.02. Venous blood gas showed a pH of 7.375. ASSESSMENT AND PLAN: 1. Pleural effusion on the right. May be secondary to empyema, secondary to pneumonia. Dr. Le was consulted. He agreed to see the patient in consultation and drain the effusion. We will hold off on treating the patient with antibiotics at this time. Continue oxygen supplementation to keep oxygen saturation above 90%. 2. History of orthostatic hypotension during the last hospitalization. We will order orthostatics every four hours. We will start the patient on IV fluids at a rate of 60 mL an hour. 3. History of macular degeneration. We will continue the patient's eye drops. 4. Deep vein thrombosis (DVT) prophylaxis. Sequential compression devices (SCDs) while in bed.
[2016-12-13] MEDS ORDERED: KCL 20MEQ IN D5/NS 1000ML 1,000 ML IV SCH (15:55)
[2016-12-13] MEDS ORDERED: NORCO, ANEXSIA 5/325MG TABLET (HYDROcodone/ACETAMINOPHEN) PO PRN (16:00)
[2016-12-13] MEDS ORDERED: BISACODYL 10 MG SUPP PR PRN (16:00)
[2016-12-13] MEDS ORDERED: zolPIDEM TARTRATE 5 MG TAB PO PRN (16:00)
[2016-12-13] MEDS ORDERED: ONDANSETRON 4MG/2ML VIAL (J2405) IV PRN (16:00)
[2016-12-13] MEDS ORDERED: ACETAMINOPHEN TAB 650MG DOSE (2X325MG) PO PRN (16:00)
[2016-12-13] MEDS ORDERED: LEVALBUTEROL 1.25 MG/0.5 ML CONCENTRATE NEB NEB PRN (16:00)
[2016-12-13] MEDS ORDERED: MIDAZOLAM INJ 2 MG/2 ML VIAL (J2250) IV STA (16:06)
[2016-12-13] MEDS ORDERED: LIDOCAINE 1% MDV 20ML VIAL SC ONE (16:15)
[2016-12-13 16:29] LABS: BASO % 0.3 % (0.0-1.0); EOS # 0.3 K/mm3 (0.0-0.50); EOS % 3.9 % (0.0-3.0); LARGE UNSTAINED CELL # 0.1 K/mm3 (0.0-0.4); LARGE UNSTAINED CELL % 1.3 % (0.0-4.0); LYMPH # 0.6 K/mm3 (1.5-4.5); LYMPH % 6.6 % (24.0-44.0); MEAN CORPUSCULAR HEMOGLOBIN 33.8 pg (27.0-33.0); MEAN CORPUSCULAR HGB CONC 32.5 g/dl (32.0-36.5); MONO # 0.7 K/mm3 (0.0-0.8); MONO % 8.7 % (0.0-5.0); NEUTROPHILS % 79.2 % (36.0-66.0); PLATELET COUNT, AUTOMATED 307 k/mm3 (150-450); RED CELL DISTRIBUTION WIDTH 13.5 % (11.5-14.5); WHITE BLOOD COUNT 7.6 K/mm3 (4.0-10.0)
--- NOTE | 2016-12-13 16:29 | REP ---
AP PORTABLE CHEST: 12/13/2016 at 03:53 PM. Comparison: CT angiogram chest and portable chest 12/13/2016, 12/06/2016. Clinical history. Right chest tube for pleural effusion. There is now a right chest tube seen above the elevated right diaphragm with large hiatal hernia underneath it. A hiatal hernia also seen at the left side of the chest and overall that very large hiatal hernia is unchanged. There is no pneumothorax on the right and no effusion or pneumothorax on the left. There are no other changes. Impression: 1. Right base chest tube just above the elevated diaphragm without pneumothorax. A very large hiatal hernia is again seen on both sides of the chest and stable. Left lung clear. Signed by Rashel Massey MD 12/13/2016 04:41 P
[2016-12-13 16:54] LABS: RBC PLEURAL FLUID 17 (<10mm3 cells/uL); TNC PLEURAL FLUID 3445 cells/uL (0-20)
[2016-12-13 16:55] LABS: BF DIFF IF INDICATED? YES (NO)
[2016-12-13 17:10] LABS: LDH, BODY FLUID 387 U/L (NOT ESTABLISHED); TOTAL PROTEIN, BODY FLUID 3.3 G/DL (NOT ESTABLISHED)
[2016-12-13] MEDS: ceFAZolin SOD 1 GM in D5W MINI-BAG PLUS 50 ML IV SCH (17:16)
[2016-12-13] MEDS: KETOROLAC 30 MG/ML VIAL (J1885) IV SCH ×2 (17:16→23:33)
[2016-12-13 17:34] LABS: ANION GAP 8 MEQ/L (8-16); BLOOD UREA NITROGEN 12 MG/DL (7-18); CALCIUM LEVEL 8.8 MG/DL (8.8-10.2); CARBON DIOXIDE LEVEL 29 MEQ/L (21-32); CHLORIDE LEVEL 108 MEQ/L (98-107); CREATININE FOR GFR 1.04 MG/DL (0.70-1.30); GLOMERULAR FILTRATION RATE > 60.0 (>35); GLUCOSE, FASTING 81 MG/DL (83-110); SODIUM LEVEL 145 MEQ/L (136-145)
--- NOTE | 2016-12-13 17:45 | CR ---
DATE OF CONSULTATION: 12/13/2016 The patient is seen at the request of Dr. Warren of the hospitalist service for shortness of breath, prior pneumonia and a new pleural effusion. HISTORY OF THE PRESENT ILLNESS: The patient is an 89-year-old white male who last Tuesday started to have nausea and vomiting throughout the night with increasing shortness of breath. He came to the hospital and was found to have what was thought to be a pneumonia and started on antibiotics. Soon thereafter the patient left the hospital. Over the last week, he states he has become more short of breath and has had coughing with sputum production. He has had one bout of hemoptysis with blood-streaked sputum. He complains of chest discomfort and chest pain with deep inspiration in his anterior right chest. He states he has a fever of 101.5 when he was in the hospital last time. Since then, he has not had any fever, chills or sweats that he is aware of. He has lost about 7 pounds of weight in the last 2 months, unintended. He does not have any dysphagia, and he does not have any choking with taking in food. He tells me that he has a large hiatal hernia, which has caused prior bouts of nausea and vomiting, but was placed on an unknown medication by Dr. Burnett, which seemed to have fixed the problem. He was seen in the emergency room this morning where a CT angiogram was undertaken, which did not show a pulmonary embolism but had a large new pleural effusion. See discussion below of the CT angio. PAST MEDICAL HISTORY: Macular degeneration. Denies prior myocardial infarctions or strokes. Denies diabetes. PAST SURGICAL HISTORY: Hip replacement. ALLERGIES: None. MEDICATIONS AT HOME: - Simbrinza one drop twice a day - Travatan Z one drop both eyes nightly TRAVEL HISTORY: He has been to [place] and to [facility] in the remote past. EXPOSURES: No animals at home. No prior exposure to tuberculosis. 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 No prior exposure to asbestos. HABITS: Smoked one pack per day until the age of 42 when he quit. Does not imbibe alcohol. FAMILY HISTORY: To be determined at a later time - at this point noncontributory. REVIEW OF SYSTEMS: CONSTITUTIONAL: See history of the present illness. EYES: Without diplopia, without amaurosis fugax. Has macular degeneration. NOSE: Without epistaxis. MOUTH: Wears dentures. RESPIRATORY: See history of the present illness. CARDIAC: See history of the present illness. Without orthopnea, paroxysmal nocturnal dyspnea, intermittent claudication or leg edema. GASTROINTESTINAL: See history of the present illness. With nausea and vomiting off and on, the last bout being Tuesday. Has a large hiatal hernia according to the patient. Without melena, without hematochezia or hematemesis. GENITOURINARY: Without dysuria, hematuria or prior renal stones. NEUROLOGIC: Without paresthesias, paralyses or transient monocular blindness or seizures. ENDOCRINE: Without diabetes, without thyroid disease. HEMATOLOGIC: Without prolonged bleeding times or easy bruisability. PSYCHIATRIC: Without pathological anxieties, depression or psychosis. LYMPHATICS: Without lumps and bumps in his neck, axilla or groin that he has noted. PHYSICAL EXAMINATION: GENERAL: Well developed, well nourished, white male in no acute distress. VITAL SIGNS: Temperature is 96.0, pulse of 55, blood pressure of 163/99, respiratory rate of 20 without the use of accessory muscles who is 93% saturated on room air. EYES: Pupils equal, round and reactive to light. Extraocular motor intact. Sclerae nonicteric. NOSE: Without deformity. MOUTH: Shows hi mucous membranes to be pink and moist. Lips and commissures without lesions. There is no thrush. Dentures are in place. NECK: Neck is supple. There is no jugular venous distention. No subcutaneous emphysema. Trachea is midline. He has 2+ carotid upstrokes. No bruits. There is no lymphadenopathy or thyromegaly. LUNGS: Lungs show decreased breath sounds on the right base. Percussion note is dull to percussion at the right base. I hear no other wheezes, rhonchi or rales. There is mild E:A egophony on the right side. Left side has normal vesicular sounds with a full percussion note to the diaphragm. ABDOMEN: Soft, nontender. Bowel sounds are positive. There is no hepatomegaly. No costovertebral angle tenderness. CARDIAC: Without murmurs, clicks, gallops or rubs. I cannot feel his point of maximum impulse (PMI). S1 S2 are normal. EXTREMITIES: Show no pretibial edema, no calf tenderness, no differential swelling of the upper extremities. SKIN: Warm, dry and perfused without cyanosis or mottling, including that of the nail beds and the knees. NEUROLOGIC: Shows II-XII intact along with gross motor and gross sensation intact. Gait is not tested. PSYCHIATRIC: Shows him to be awake and alert, oriented times three with appropriate mood and affect and conversational. LYMPHATICS: Without supraclavicular, infraclavicular or axillary lymphadenopathy. INVESTIGATIONS: His white count is 6.6 with a hemoglobin and hematocrit of 13.4 and 40.3 and a platelet count of 286. Differential shows 84% neutrophils, 5% lymphocytes, 4% monocytes. There are no immature forms, no toxic granulations. Electrolytes are normal with a BUN and creatinine of 13 and 1.13, glucose of 117 and a calcium of 9.2 with a total corresponding albumin of 2.8. AST and ALT are normal. Corrected calcium is 10.2 is for his albumin. This puts him at the very high limits of normal. His PT/INR are 14.3 and 1.10 respectively with a PTT of 29.8 seconds. Blood gases this morning show a pH of 7.35, pCO2 of 51. A venous blood gas showed a pH of 27 with a base excess of 3.2. His chest CT done as a CT angio today does not show a pulmonary embolism. He has a moderate pleural effusion. Most significantly, however, he has a very large hiatal hernia with the diaphragm [facility] up the chest and occupying perhaps a third to a half of the chest volume. He has compression atelectasis and/or consolidation of the right lower lobe. I suspect he probably has permanent atelectasis secondary to the high diaphragm and hiatal hernia. There is no pericardial effusion. I see no liver lesions. His adrenals are of a normal configuration. Within this diaphragmatic hernia is not only stomach but intestine. It does look like a severe eventration rather than a hole in the diaphragm itself. The pleural effusion has changed from his 12/06/[address] also done here. IMPRESSION: 1. Moderate pleural effusion. 2. Shortness of breath. 3. Right lower lobe pneumonia. 4. Large hiatal hernia or diaphragmatic eventration. 5. Macular degeneration. 6. CO2 retention. PLAN AND DISCUSSION: I will place a high chest tube to drain the pleural effusion. I suspect he has about 500 mL. The worry is that this is an empyema and/or parapneumonic effusion secondary to infective etiology. Placement of chest tube will be somewhat tricky in that I will have to put it in fairly high to avoid the diaphragm and the hiatal hernia.
[2016-12-13 17:49] LABS: CC BF DIFF EXAM CYTOCENTRIFUGE
--- NOTE | 2016-12-13 17:50 | RO ---
DATE OF PROCEDURE: 12/13/2016 PREPROCEDURE DIAGNOSIS: Right pleural effusion, probable empyema. POSTPROCEDURE DIAGNOSIS: Right pleural effusion, probable empyema. PROCEDURE: Insertion of right lateral chest tube. SURGEON: Dr. Dimas Le [employer]ICIAN: ANESTHESIA: DESCRIPTION OF PROCEDURE: Under satisfactory conscious sedation achieved with 3 mg of Versed, the patient was prepped and draped in the usual sterile fashion. Judging from the CT, the chest tube was to be placed just at the nipple line in the fourth intercostal space. He has a very high riding diaphragm. An incision was made and a tunnel was created in the chest without difficulty after infiltrating the skin, subcutaneous tissue and pleura with 1% lidocaine. A #24 chest tube was placed without difficulty and drained 700 mL of serosanguineous fluid. Chest tube was secured to the chest wall with a #2 Tevdek suture and connected to the Pleur-evac. The patient tolerated the procedure well. A chest x-ray is pending.
--- NOTE | 2016-12-13 20:03 | ECGEPIP ---
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
[2016-12-13] MEDS: LEVALBUTEROL 1.25 MG/0.5 ML CONCENTRATE NEB NEB SCH (20:48)
[2016-12-13] MEDS: DOCUSATE SODIUM 100 MG CAP PO SCH (20:55)
[2016-12-13] MEDS: HEPARIN SOD (PORCINE) 5000 UNITS/ML VIAL SC SCH (20:55)
[2016-12-14] VITALS (10 sets, daily range): BP systolic 106–148; BP diastolic 55–90
[2016-12-14] MEDS: ceFAZolin SOD 1 GM in D5W MINI-BAG PLUS 50 ML IV SCH ×2 (01:08→09:40)
[2016-12-14] MEDS: LEVALBUTEROL 1.25 MG/0.5 ML CONCENTRATE NEB NEB SCH ×4 (02:20→20:38)
[2016-12-14] MEDS: KETOROLAC 30 MG/ML VIAL (J1885) IV SCH ×2 (04:01→12:30)
[2016-12-14 05:40] LABS: BASO % 0.3 % (0.0-1.0); EOS # 0.3 K/mm3 (0.0-0.50); EOS % 4.1 % (0.0-3.0); LARGE UNSTAINED CELL # 0.1 K/mm3 (0.0-0.4); LARGE UNSTAINED CELL % 1.7 % (0.0-4.0); LYMPH # 0.4 K/mm3 (1.5-4.5); LYMPH % 4.7 % (24.0-44.0); MEAN CORPUSCULAR HEMOGLOBIN 33.4 pg (27.0-33.0); MEAN CORPUSCULAR HGB CONC 32.2 g/dl (32.0-36.5); MEAN CORPUSCULAR VOLUME 103.7 fl (80.0-96.0); MONO # 0.4 K/mm3 (0.0-0.8); MONO % 5.5 % (0.0-5.0); NEUTROPHILS # 6.3 K/mm3 (1.8-7.7); NEUTROPHILS % 83.8 % (36.0-66.0); PLATELET COUNT, AUTOMATED 296 k/mm3 (150-450); RED CELL DISTRIBUTION WIDTH 12.9 % (11.5-14.5); WHITE BLOOD COUNT 7.5 K/mm3 (4.0-10.0)
[2016-12-14 05:51] LABS: ANION GAP 8 MEQ/L (8-16); BLOOD UREA NITROGEN 14 MG/DL (7-18); CALCIUM LEVEL 8.3 MG/DL (8.8-10.2); CARBON DIOXIDE LEVEL 28 MEQ/L (21-32); CHLORIDE LEVEL 108 MEQ/L (98-107); CREATININE FOR GFR 1.08 MG/DL (0.70-1.30); GLOMERULAR FILTRATION RATE > 60.0 (>35); GLUCOSE, FASTING 141 MG/DL (83-110); POTASSIUM SERUM 3.8 MEQ/L (3.5-5.1); SODIUM LEVEL 144 MEQ/L (136-145)
[2016-12-14 06:01] LABS: ABG BASE EXCESS -1.6 (-2.0-2.0); ABG HCO3 22.2 MEQ/L (22.0-26.0); ABG PARTIAL PRESSURE CO2 34.9 mmHg (35.0-45.0); ABG PARTIAL PRESSURE O2 97.1 mmHg (75.0-100.0); ABG STANDARD HCO3 23.1 MEQ/L (22.0-26.0); ABG TOTAL CO2 23.3 MEQ/L (23.0-31.0); ABG pH (ARTERIAL) 7.422 UNITS (7.350-7.450)
--- NOTE | 2016-12-14 08:35 | REP ---
Portable chest, 12/14/2016, 08:20 a.m., frontal and lateral views: Comparison is a portable chest of 12/13/2016, 03:53 p.m.. There is a right thoracotomy tube. The side-hole of the thoracotomy tube is superimposed over the right lateral chest wall. There is no pneumothorax. No subcutaneous emphysema. There is a huge hiatal hernia as previously, occupying almost the entire inferior half of the right lung. This is unchanged. The right upper lobe is clear. Left lung is clear. Cardiac size is normal. Signed by Antonino Blakely MD 12/14/2016 08:27 A
[2016-12-14] MEDS: MOM 30ML SUSPENSION UDC PO SCH (09:00)
[2016-12-14] MEDS: PANTOPRAZOLE 40MG TAB (PROTONIX) PO SCH (09:39)
[2016-12-14] MEDS: DOCUSATE SODIUM 100 MG CAP PO SCH ×2 (09:39→20:02)
[2016-12-14] MEDS: HEPARIN SOD (PORCINE) 5000 UNITS/ML VIAL SC SCH ×2 (09:40→20:02)
--- NOTE | 2016-12-14 13:23 | IPNPDOC ---
Date Seen The patient was seen on 12/14/16. Subjective CC/HPI The patient is a 89-year-old male admitted with a reason for visit of Shortness Of Breath. Events since last encounter feeling better no complaints. Objective General Exam: Positive: Alert, No Acute Distress Eye Exam: Positive: Conjunctiva & lids normal, EOMI, PERRLA, Negative: Sclera icteric ENT Exam: Positive: Atraumatic, Mucous membr. moist/pink, Pharynx Normal Neck Exam: Positive: Supple, Negative: JVD, thyromegaly Chest Exam: Positive: Diminished Heart Exam: Positive: Normal S1, Normal S2, Rate Normal, Regular Rhythm, Negative: Murmurs, Rubs Telemetry: Positive: No significant arrhythmia Abdomen Exam: Positive: Normal bowel sounds, Soft, Negative: Hepatospenomegaly, Tenderness Extremity Exam: Positive: Normal pulses, Negative: Clubbing, Cyanosis, Edema Problems (1) Pneumonia Status: Acute Problem Text: right lower lobe with pleural effusion continue cefazolin. (2) Empyema Status: Acute Problem Text: s/p chest tube placement on 12/13/16 (3) Hiatal hernia Status: Chronic (4) Diverticulosis Status: Chronic (5) Macular degeneration Status: Chronic Plan/VTE VTE Prophylaxis Ordered?: Yes VS, I&O, 24H, Fishbone Vital Signs Date Time Temp Pulse Resp B/P Pulse Ox O2 Delivery O2 Flow Rate FiO2 12/14/16 12:10 Room Air 12/14/16 07:25 88 117/67 12/14/16 07:22 20 12/14/16 07:20 96.0 95 2.0 I&O- Last 24 Hours up to 6 AM 12/14/16 06:00 Intake Total 1405 ml Output Total 640 ml Balance 765 ml Laboratory Tests 2 12/13/16 16:00: Body Fluid Albumin 2.0, Body Fluid Amylase 45, Body Fluid Cholesterol 61, Body Fluid Glucose 78, Body Fluid Lactate Dehydrogenase 387, Body Fluid Lymphocytes 3 , Body Fluid Monocytes/Macrophages 17, Body Fluid Neutrophils 80, Body Fluid Source PLEURAL, Body Fluid Total Protein 3.3, Body Fluid Triglycerides 21, Body Fluid pH 7.783, Pleural Fluid Appearance TURBID, Pleural Fluid Color JOCY, Pleural Fluid RBC (Auto) 17, Pleural Fluid Source PLEURAL, Pleural Fluid Total Nucleated Cells 3445H 12/13/16 16:13: Anion Gap 8, White Blood Count 7.6, Red Blood Count 3.81L, Hemoglobin 12.9L, Hematocrit 39.6L, Mean Corpuscular Volume 104.0H, Mean Corpuscular Hemoglobin 33.8H, Mean Corpuscular Hemoglobin Concent 32.5, Red Cell Distribution Width 13.5, Platelet Count 307, Neutrophils (%) (Auto) 79.2H, Lymphocytes (%) (Auto) 6.6L, Monocytes (%) (Auto) 8.7H, Eosinophils (%) (Auto) 3.9H, Basophils (%) ( Auto) 0.3, Neutrophils # (Auto) 6.0, Lymphocytes # (Auto) 0.6L, Monocytes # ( Auto) 0.7, Eosinophils # (Auto) 0.3, Basophils # (Auto) 0.0, Blood Urea Nitrogen 12, Creatinine 1.04, Sodium Level 145, Potassium Level 4.0, Chloride Level 108H, Carbon Dioxide Level 29, Calcium Level 8.8, Glomerular Filtration Rate > 60.0, Large Unclassified Cells # 0.1, Large Unclassified Cells % 1.3 12/14/16 05:15: Anion Gap 8, White Blood Count 7.5, Red Blood Count 3.54L, Hemoglobin 11.8L, Hematocrit 36.7L, Mean Corpuscular Volume 103.7H, Mean Corpuscular Hemoglobin 33.4H, Mean Corpuscular Hemoglobin Concent 32.2, Red Cell Distribution Width 12.9, Platelet Count 296, Neutrophils (%) (Auto) 83.8H, Lymphocytes (%) (Auto) 4.7L, Monocytes (%) (Auto) 5.5H, Eosinophils (%) (Auto) 4.1H, Basophils (%) ( Auto) 0.3, Neutrophils # (Auto) 6.3, Lymphocytes # (Auto) 0.4L, Monocytes # ( Auto) 0.4, Eosinophils # (Auto) 0.3, Basophils # (Auto) 0.0, Blood Urea Nitrogen 14, Creatinine 1.08, Sodium Level 144, Potassium Level 3.8, Chloride Level 108H, Carbon Dioxide Level 28, Calcium Level 8.3L, Glomerular Filtration Rate > 60.0, Large Unclassified Cells # 0.1, Large Unclassified Cells % 1.7 12/14/16 05:50: Arterial Blood pH 7.422, Arterial Blood Partial Pressure CO2 34.9L, Arterial Blood Partial Pressure O2 97.1, Arterial Blood Total CO2 23.3, Arterial Blood HCO3 22.2, Arterial Blood Base Excess -1.6, Arterial Blood Oxygen Saturation 97.2, Blood Gas Bicarbonate Standard 23.1 Laboratory Tests 12/13/16 16:13 Calcium Level 8.8, Red Blood Count 3.81 L, Mean Corpuscular Volume 104.0 H, Mean Corpuscular Hemoglobin 33.8 H, Mean Corpuscular Hemoglobin Concent 32.5, Red Cell Distribution Width 13.5, Neutrophils (%) (Auto) 79.2 H, Lymphocytes (% ) (Auto) 6.6 L, Monocytes (%) (Auto) 8.7 H, Eosinophils (%) (Auto) 3.9 H, Basophils (%) (Auto) 0.3, Neutrophils # (Auto) 6.0, Lymphocytes # (Auto) 0.6 L, Monocytes # (Auto) 0.7, Eosinophils # (Auto) 0.3, Basophils # (Auto) 0.0 12/14/16 05:15 Calcium Level 8.3 L, Red Blood Count 3.54 L, Mean Corpuscular Volume 103.7 H, Mean Corpuscular Hemoglobin 33.4 H, Mean Corpuscular Hemoglobin Concent 32.2, Red Cell Distribution Width 12.9, Neutrophils (%) (Auto) 83.8 H, Lymphocytes (% ) (Auto) 4.7 L, Monocytes (%) (Auto) 5.5 H, Eosinophils (%) (Auto) 4.1 H, Basophils (%) (Auto) 0.3, Neutrophils # (Auto) 6.3, Lymphocytes # (Auto) 0.4 L, Monocytes # (Auto) 0.4, Eosinophils # (Auto) 0.3, Basophils # (Auto) 0.0 Microbiology 12/13/16 Blood Culture - Preliminary, Resulted No growth after 24 hours . All specim... 12/13/16 Blood Culture - Preliminary, Resulted No growth after 24 hours . All specim... 12/13/16 Acid Fast Stain, Received Pending 12/13/16 Mycobacterial Culture, Received Pending 12/13/16 Fungal Smear, Received Pending 12/13/16 Fungal Culture, Received Pending 12/13/16 Gram Stain - Final, Resulted 12/13/16 Body Fluid Culture, Resulted Pending 12/13/16 Anaerobic Culture, Resulted Pending CINTIA JONES MD Dec 14, 2016 13:23
--- NOTE | 2016-12-14 13:47 | IPN ---
DATE: 12/14/2016 Mr. Nam is doing quite well today. He is much less short of breath. His chest tube has put out minimally. His maximum temperature (t-max) is 98.1 with a heart rate that ranges between 72 and 84 in a sinus rhythm, respiratory rate of 18 to 20 without the use of accessory muscles who is 95% saturated on 2 liters nasal cannula and now down to room air. Blood pressure is ranging between 117/67 to 109/68. His intake and output over the past 24 hours has been recorded as 835 in and 420 out for a positivity of 415 mL. Since his chest tube was inserted, he put out 20 mL last night and 7 mL in the last 12 hours. Weight today is 67.4 kg compared to 66.8 kg yesterday. PHYSICAL EXAMINATION: LUNGS: His lungs show some faint crackles in the mid right hemithorax. The left lung shows normal vesicular sounds. Percussion note is full to the diaphragm on the left and full down to the costal margin posteriorly on the right. CARDIAC EXAM: Without murmurs, clicks, gallops or rubs. I cannot feel his point of maximum impulse (PMI). S1, S2 are normal. ABDOMEN: Soft, nontender. Bowel sounds positive. There is no hepatomegaly. No costovertebral angle tenderness. EXTREMITIES: Show no pretibial edema. No calf tenderness. No differential swelling of the upper extremities. SKIN: Warm, dry and perfused without cyanosis or mottling, including that of the nail beds and knees. NECK: Supple. There is no jugular venous distention. No subcutaneous emphysema. Trachea is midline. MOUTH: Shows his mucous membranes to be pink and moist. Lips and commissures without lesions. There is no thrush. EYES: Show his pupils to be equal and reactive. Extraocular motion intact. Sclerae anicteric. NEUROLOGIC: Shows II through XII intact with gross motor and gross sensation intact. Gait is not tested. PSYCHIATRIC: Shows him to be awake and alert, oriented times three with appropriate mood and affect and conversational. His white count today is 7.5 with a hemoglobin and hematocrit of 11.8 and 36.7. Platelet count is 296 with a differential that shows 82% neutrophils, 4% lymphocytes, 5% monocytes. There are no immature forms. No toxic granulations. His chemistries show abnormal electrolytes with a BUN and creatinine of 14 and 1.08 and a calcium of 8.3 and a glucose of 141. His chest x-ray today shows the lung fully expanded to the chest wall. He has a very large hiatal hernia, probably paraesophageal hernia that is causing a large space lesion in the right hemithorax. His stomach is almost half way up the chest. Otherwise, I see no other infiltrates. I see no other posterior infiltrates. There may be a very small blunting of the right costophrenic angle high up. His pleural fluid has been returned with a pH of 7.7 and LDH of 387 with a corresponding serum LDH of 159, making his fluid serum ratio 0.4. He has 3400 nucleated cells, 80% of which are neutrophils, 3% are lymphocytes and 7% are monocytes. This looks to be exudative and neutrophilic. Glucose is 78 with a corresponding serum glucose of 81. It does not look hypoglycemic. I discussed his CT scan in yesterday's note; however, review of the CT scan again shows either compression or consolidation of the left lower lobe consistent with a pneumonia. IMPRESSION: 1. Right pleural effusion, resolved with a chest tube. 2. Probable right lower lobe pneumonia. 3. Paraesophageal hernia. 4. Macular degeneration. 5. CO2 retention, which has resolved today with a pH of 7.4 and a PCO2 of 35 and a PO2 of 97. PLAN AND DISCUSSION: Her certainly has an exudative effusion. That combined with consolidation of the right lower lobe probably represents a parapneumonic effusion. He is not draining at all from the chest tube. I will therefore remove the chest tube. He is continuing on antibiotics, which include cefazolin, which was really started for the chest tube. I recommend that we treat him for community-acquired pneumonia. I am going to discontinue the cefazolin as his chest tube is now out.
[2016-12-14] MEDS ORDERED: SLF 3 ML SYR IV PRN (14:00)
[2016-12-14] MEDS: SLF 3 ML SYR IV SCH ×2 (15:03→20:03)
[2016-12-14] MEDS: LevoFLOXacin 750 MG TABLET PO SCH (15:03)
[2016-12-15] MEDS: LEVALBUTEROL 1.25 MG/0.5 ML CONCENTRATE NEB NEB SCH ×4 (01:36→19:11)
[2016-12-15 04:00] VITALS: BP 117/64
[2016-12-15 05:24] LABS: BASO % 0.2 % (0.0-1.0); EOS # 0.3 K/mm3 (0.0-0.50); EOS % 3.9 % (0.0-3.0); LARGE UNSTAINED CELL # 0.1 K/mm3 (0.0-0.4); LARGE UNSTAINED CELL % 1.5 % (0.0-4.0); LYMPH # 0.3 K/mm3 (1.5-4.5); LYMPH % 3.7 % (24.0-44.0); MEAN CORPUSCULAR HEMOGLOBIN 33.8 pg (27.0-33.0); MEAN CORPUSCULAR HGB CONC 33.3 g/dl (32.0-36.5); MEAN CORPUSCULAR VOLUME 101.3 fl (80.0-96.0); MONO # 0.4 K/mm3 (0.0-0.8); MONO % 4.1 % (0.0-5.0); NEUTROPHILS # 7.6 K/mm3 (1.8-7.7); NEUTROPHILS % 86.6 % (36.0-66.0); PLATELET COUNT, AUTOMATED 336 k/mm3 (150-450); RED CELL DISTRIBUTION WIDTH 12.9 % (11.5-14.5); WHITE BLOOD COUNT 8.8 K/mm3 (4.0-10.0)
[2016-12-15 05:46] LABS: ANION GAP 6 MEQ/L (8-16); BLOOD UREA NITROGEN 15 MG/DL (7-18); CALCIUM LEVEL 8.1 MG/DL (8.8-10.2); CARBON DIOXIDE LEVEL 28 MEQ/L (21-32); CHLORIDE LEVEL 109 MEQ/L (98-107); GLOMERULAR FILTRATION RATE > 60.0 (>35); GLUCOSE, FASTING 103 MG/DL (83-110); SODIUM LEVEL 143 MEQ/L (136-145)
[2016-12-15 06:05] VITALS: BP 139/71
[2016-12-15] MEDS: SLF 3 ML SYR IV SCH ×3 (06:12→21:19)
[2016-12-15] MEDS: LevoFLOXacin 750 MG TABLET PO SCH (06:12)
[2016-12-15] MEDS: PANTOPRAZOLE 40MG TAB (PROTONIX) PO SCH (08:32)
[2016-12-15] MEDS: MOM 30ML SUSPENSION UDC PO SCH (08:32)
[2016-12-15] MEDS: DOCUSATE SODIUM 100 MG CAP PO SCH ×2 (08:32→21:19)
[2016-12-15] MEDS: HEPARIN SOD (PORCINE) 5000 UNITS/ML VIAL SC SCH ×2 (08:33→21:19)
--- NOTE | 2016-12-15 11:10 | REP ---
CHEST, TWO VIEWS: HISTORY: Pleural effusion. COMPARISON: 12/14/2016 There is loss of volume in the right hemithorax. There is elevation of the right hemidiaphragm. A large hiatal hernia is present in the inferior right hemithorax. The left lung and right upper lobe are clear. The heart is normal in size. The pulmonary vasculature is normal in appearance. The bony structure is intact. The patient is status post removal of a right chest tube. There is no definite pneumothorax. IMPRESSION: The patient is status post right chest tube removal. There is no definite pneumothorax. Signed by Pierre Barakat MD 12/15/2016 11:17 A
--- NOTE | 2016-12-15 11:25 | IPNPDOC ---
Subjective General Date Seen The patient was seen on 12/15/16. Chief Complaint/HPI The patient is a 89-year-old male admitted with a reason for visit of Shortness Of Breath. Subjective Events since last encounter no complaints this am . denies any SOB , denies any chest pain or cough , no fever or chills, Objective Physical Examination General Exam: Positive: Alert, No Acute Distress Eye Exam: Positive: Conjunctiva & lids normal, EOMI, PERRLA, Negative: Sclera icteric ENT Exam: Positive: Atraumatic, Mucous membr. moist/pink, Pharynx Normal Neck Exam: Positive: Supple, Negative: JVD, thyromegaly Chest Exam: Positive: Diminished Heart Exam: Positive: Normal S1, Normal S2, Rate Normal, Regular Rhythm, Negative: Murmurs, Rubs Telemetry: Positive: No significant arrhythmia Abdomen Exam: Positive: Normal bowel sounds, Soft, Negative: Hepatospenomegaly, Tenderness Extremity Exam: Positive: Normal pulses, Negative: Clubbing, Cyanosis, Edema Assessment /Plan Problems Problems: (1) Pneumonia Status: Acute Problem Text: right lower lobe with pleural effusion continue levofloxacin (2) Empyema Status: Acute Problem Text: s/p chest tube placement on 12/13/16 (3) Hiatal hernia Status: Chronic (4) Diverticulosis Status: Chronic (5) Macular degeneration Status: Chronic Plan/VTE VTE Prophylaxis Ordered?: Yes VS, I&O, 24H, Fishbone Vital Signs/I&O Vital Signs Date Time Temp Pulse Resp B/P Pulse Ox O2 Delivery O2 Flow Rate FiO2 12/15/16 06:34 Room Air 12/15/16 06:05 96.9 96 18 139/71 95 12/14/16 07:20 2.0 I&O- Last 24 Hours up to 6 AM 12/15/16 06:00 Intake Total 960 ml Output Total 410 ml Balance 550 ml Laboratory Data 24H LABS Laboratory Tests 2 12/15/16 05:14: Anion Gap 6L, White Blood Count 8.8, Red Blood Count 3.51L, Hemoglobin 11.8L, Hematocrit 35.5L, Mean Corpuscular Volume 101.3H, Mean Corpuscular Hemoglobin 33.8H, Mean Corpuscular Hemoglobin Concent 33.3, Red Cell Distribution Width 12.9, Platelet Count 336, Neutrophils (%) (Auto) 86.6H, Lymphocytes (%) (Auto) 3.7L, Monocytes (%) (Auto) 4.1, Eosinophils (%) (Auto) 3.9H, Basophils (%) (Auto ) 0.2, Neutrophils # (Auto) 7.6, Lymphocytes # (Auto) 0.3L, Monocytes # (Auto) 0.4, Eosinophils # (Auto) 0.3, Basophils # (Auto) 0.0, Blood Urea Nitrogen 15, Creatinine 1.10, Sodium Level 143, Potassium Level 4.0, Chloride Level 109H, Carbon Dioxide Level 28, Calcium Level 8.1L, Glomerular Filtration Rate > 60.0, Large Unclassified Cells # 0.1, Large Unclassified Cells % 1.5 CBC/BMP Laboratory Tests 12/15/16 05:14 Calcium Level 8.1 L, Red Blood Count 3.51 L, Mean Corpuscular Volume 101.3 H, Mean Corpuscular Hemoglobin 33.8 H, Mean Corpuscular Hemoglobin Concent 33.3, Red Cell Distribution Width 12.9, Neutrophils (%) (Auto) 86.6 H, Lymphocytes (% ) (Auto) 3.7 L, Monocytes (%) (Auto) 4.1, Eosinophils (%) (Auto) 3.9 H, Basophils (%) (Auto) 0.2, Neutrophils # (Auto) 7.6, Lymphocytes # (Auto) 0.3 L, Monocytes # (Auto) 0.4, Eosinophils # (Auto) 0.3, Basophils # (Auto) 0.0 Microbiology Microbiology 12/13/16 Blood Culture - Preliminary, Resulted No Growth after 48 hours. All Specime... 12/13/16 Blood Culture - Preliminary, Resulted No Growth after 48 hours. All Specime... 12/13/16 Acid Fast Stain, Received Pending 12/13/16 Mycobacterial Culture, Received Pending 12/13/16 Fungal Smear, Received Pending 12/13/16 Fungal Culture, Received Pending 12/13/16 Gram Stain - Final, Complete 12/13/16 Body Fluid Culture - Final, Complete 12/13/16 Anaerobic Culture - Final, Complete CINTIA JONES MD Dec 15, 2016 11:24
[2016-12-15 14:00] VITALS: BP 129/69
--- NOTE | 2016-12-15 15:10 | EDDOCDS ---
Physician Documentation [facility] Name: Que Nam Age: 89 yrs Sex: Male : 1925 Arrival Date: 12/13/2016 Time: 06:11 Bed 9 Private MD: Disposition: 12/13/16 10:12 Hospitalization ordered by Osmin Warren for Inpatient Admission. Preliminary diagnosis are Pleural effusion in conditions classified elsewhere - rule out empyema, Chest pain, unspecified, Pneumonia, unspecified organism - recent dx; ama and not on antibiotics. - Bed requested for PCU. - Status is Inpatient Admission. hs1 - Condition is Stable. - Problem is new. - Symptoms are unchanged. Historical: - Allergies: No known drug Allergies; - Home Meds: 1. Travatan Z 0.004 % ophthalmic drop - PMHx: Macular Degeneration; - PSHx: Hip Arthroplasty, Right; - Social history: Smoking status: Patient states was never smoker of tobacco. No barriers to communication noted, The patient speaks fluent French. - Family history: Not pertinent. - : The pt / caregiver states he / she is not on anticoagulants. Home medication list is obtained from the patient. - Exposure Risk Screening:: None identified. Vital Signs: 12/13 06:24 BP 120 / 72; Pulse 91; Resp 20; Temp 99.0(TE); Pulse Ox 97% on R/A; Weight 66.22 kg / manohar 145.99 lbs (R); Height 5 ft. 10 in. (177.80 cm) (R); Pain 8/10; 07:36 BP 123 / 68 (auto/); hs1 07:36 Pulse 74 MON; Pulse Ox 94% ; hs1 07:51 BP 110 / 90 (auto/); hs1 07:51 Pulse 84 MON; Pulse Ox 95% ; hs1 08:06 BP 120 / 61 (auto/); hs1 08:08 Pulse 70 MON; Pulse Ox 94% ; hs1 08:21 BP 122 / 65 (auto/); hs1 08:21 Pulse 70 MON; Resp 18; Pulse Ox 93% ; hs1 08:43 BP 129 / 73 (auto/); hs1 08:43 Pulse 82 MON; Pulse Ox 93% ; hs1 08:50 Pulse 86 MON; Pulse Ox 95% ; hs1 08:51 BP 120 / 68 (auto/); hs1 09:06 BP 148 / 79 (auto/); hs1 09:06 Pulse 86 MON; Pulse Ox 96% ; hs1 09:20 Pulse 80 MON; Pulse Ox 96% ; hs1 09:21 BP 142 / 73 (auto/); hs1 09:35 Pulse 74 MON; Pulse Ox 94% ; hs1 09:36 BP 138 / 78 (auto/); hs1 09:50 Pulse 76 MON; Pulse Ox 94% ; hs1 09:51 BP 129 / 72 (auto/); hs1 10:05 Pulse 64 MON; Pulse Ox 96% ; hs1 10:06 BP 128 / 68 (auto/); hs1 10:18 Pulse 78 MON; Resp 18; Pulse Ox 93% ; hs1 10:21 BP 132 / 74 (auto/); hs1 10:50 Pulse 80 MON; Pulse Ox 96% ; hs1 10:51 BP 144 / 77 (auto/); hs1 11:05 Pulse 78 MON; Pulse Ox 97% ; hs1 11:06 BP 124 / 68 (auto/); hs1 11:21 BP 122 / 73 (auto/); hs1 11:21 Pulse 70 MON; Pulse Ox 96% ; hs1 11:50 Pulse 74 MON; Pulse Ox 97% ; hs1 11:51 BP 154 / 68 (auto/); hs1 12:06 BP 133 / 74 (auto/); hs1 12:07 BP 133 / 74; Pulse 70 MON; Resp 18; Temp 98.4(O); Pulse Ox 96% ; Pain 2/10; hs1 13:52 BP 150 / 82; Pulse 85; Resp 18; Pulse Ox 94% ; hs1 06:24 Body Mass Index 20.95 (66.22 kg, 177.80 cm) manohar MDM: 06:50 -Blood Culture (Adults Only), peripheral from different site, or from device/port/PICC cs11 etc. if present ordered. 06:50 IV Saline Lock ordered. cs11 06:52 -Blood Culture (Adults Only), peripheral from different site, or from device/port/PICC deg etc. if present complete. 06:52 CBC with Diff Ordered. EDMS 06:52 MED Profile Ordered. EDMS 06:52 Pt & Aptt Ordered. EDMS 06:52 Venous Blood Gas (large pea green tube on ice) Ordered. EDMS 06:52 -Blood Culture Ordered. EDMS 06:52 CT Chest Angio R/O PE Ordered. EDMS 06:53 BLOOD CULTURES Ordered. EDMS 07:00 Lactic Acid (Scott tube on ice) Ordered. EDMS 07:04 Chest, 1 View Ordered. EDMS 07:05 ECG WITH READING ER PHYS+CARDIAG ordered. EDMS 07:15 CARDIAC INJURY PROFILE Ordered. EDMS 07:15 oxyCODONE-acetaminophen 5 mg-325 mg 1 tabs PO once ordered. ml 07:15 LIVER PROFILE Ordered. EDMS 07:15 TROPONIN Ordered. EDMS 07:53 BED REQUEST+ADM ordered. EDMS 08:27 CBC with Diff Reviewed. ml 08:27 MED Profile Reviewed. ml 08:27 Venous Blood Gas (large pea green tube on ice) Reviewed. ml 08:27 CARDIAC INJURY PROFILE Reviewed. ml 08:27 LIVER PROFILE Reviewed. ml 08:27 Pt & Aptt Reviewed. ml 08:27 TROPONIN Reviewed. ml 09:01 [facility] [place] Payment Agreement was scanned into [employer] and attached to record. jp5 09:01 Financial registration complete. jp5 09:04 Chest, 1 View Reviewed. ml 10:11 Piperacillin-Tazobactam 3.375 grams IVPB once over 30 mins; dilute in 50mL of NS or D5W ml ordered. 10:57 ED course: requested by dr warren to hold on antibiotics per dr arreola who would like ml to sample pleural fluid. JAMAR romano. [facility] [place]. 11:04 Admission / Observation Status ordered. EDMS 11:04 NPO DIET ordered. EDMS 11:05 Chest, 2 view PA, Lat Ordered. EDMS 14:51 PCR was scanned into [employer] and attached to record. gb 12/14 12:00 T-Sheet-- Draft Copy was scanned into [employer] and attached to record. gb 12:00 ECG/EKG was scanned into [employer] and attached to record. gb 12:00 Radiology Report was scanned into [employer] and attached to record. gb Administered Medications: 12/13 07:27 Drug: oxyCODONE-acetaminophen 1 tabs [oxycodone-acetaminophen 5 mg-325 mg tablet (1 hs1 tabs)] Route: PO; 10:45 Not Given (hold per Rey LOGAN ): Piperacillin-Tazobactam 3.375 grams IVPB once over 30 hs1 mins; dilute in 50mL of NS or D5W Signatures: Dispatcher [employer] EDMS Pierce-Robert Scott MD MD ml Unique [place], Furnace Reliner Unit deg Rose Rossi, Reg Reg gb Rola Heath RN RN hs1 Jez Kennedy, DO cs11 Blanca GarciaRN RN ko2 Francia Hough RN RN af2 Ivone Dong jp5 Fani Florez, JAMAR RN lmg The chart was reviewed and I authenticate all verbal orders and agree with the evaluation and treatment provided.Corrections: (The following items were deleted from the chart) 07:14 07:04 CARDIAC INJURY PROFILE+LAB ordered. EDMS EDMS 07:14 07:04 TROPONIN+LAB ordered. EDMS EDMS 07:15 07:00 LIVER PROFILE+LAB ordered. EDMS EDMS Attachments: 09:01 [facility] Payment Agreement jp5 12/14 12:00 T-Sheet-- Draft Copy gb 12:00 ECG/EKG Chart Complete MTDD
--- NOTE | 2016-12-15 15:10 | EDDOCDS ---
Physician Documentation [facility] Name: Que Nam Age: 89 yrs Sex: Male : 1925 Arrival Date: 12/13/2016 Time: 06:11 Bed 9 Private MD: Disposition: 12/13/16 10:12 Hospitalization ordered by Osmin Warren for Inpatient Admission. Preliminary diagnosis are Pleural effusion in conditions classified elsewhere - rule out empyema, Chest pain, unspecified, Pneumonia, unspecified organism - recent dx; ama and not on antibiotics. - Bed requested for PCU. - Status is Inpatient Admission. hs1 - Condition is Stable. - Problem is new. - Symptoms are unchanged. Historical: - Allergies: No known drug Allergies; - Home Meds: 1. Travatan Z 0.004 % ophthalmic drop - PMHx: Macular Degeneration; - PSHx: Hip Arthroplasty, Right; - Social history: Smoking status: Patient states was never smoker of tobacco. No barriers to communication noted, The patient speaks fluent Greenlandic. - Family history: Not pertinent. - : The pt / caregiver states he / she is not on anticoagulants. Home medication list is obtained from the patient. - Exposure Risk Screening:: None identified. Vital Signs: 12/13 06:24 BP 120 / 72; Pulse 91; Resp 20; Temp 99.0(TE); Pulse Ox 97% on R/A; Weight 66.22 kg / manohar 145.99 lbs (R); Height 5 ft. 10 in. (177.80 cm) (R); Pain 8/10; 07:36 BP 123 / 68 (auto/); hs1 07:36 Pulse 74 MON; Pulse Ox 94% ; hs1 07:51 BP 110 / 90 (auto/); hs1 07:51 Pulse 84 MON; Pulse Ox 95% ; hs1 08:06 BP 120 / 61 (auto/); hs1 08:08 Pulse 70 MON; Pulse Ox 94% ; hs1 08:21 BP 122 / 65 (auto/); hs1 08:21 Pulse 70 MON; Resp 18; Pulse Ox 93% ; hs1 08:43 BP 129 / 73 (auto/); hs1 08:43 Pulse 82 MON; Pulse Ox 93% ; hs1 08:50 Pulse 86 MON; Pulse Ox 95% ; hs1 08:51 BP 120 / 68 (auto/); hs1 09:06 BP 148 / 79 (auto/); hs1 09:06 Pulse 86 MON; Pulse Ox 96% ; hs1 09:20 Pulse 80 MON; Pulse Ox 96% ; hs1 09:21 BP 142 / 73 (auto/); hs1 09:35 Pulse 74 MON; Pulse Ox 94% ; hs1 09:36 BP 138 / 78 (auto/); hs1 09:50 Pulse 76 MON; Pulse Ox 94% ; hs1 09:51 BP 129 / 72 (auto/); hs1 10:05 Pulse 64 MON; Pulse Ox 96% ; hs1 10:06 BP 128 / 68 (auto/); hs1 10:18 Pulse 78 MON; Resp 18; Pulse Ox 93% ; hs1 10:21 BP 132 / 74 (auto/); hs1 10:50 Pulse 80 MON; Pulse Ox 96% ; hs1 10:51 BP 144 / 77 (auto/); hs1 11:05 Pulse 78 MON; Pulse Ox 97% ; hs1 11:06 BP 124 / 68 (auto/); hs1 11:21 BP 122 / 73 (auto/); hs1 11:21 Pulse 70 MON; Pulse Ox 96% ; hs1 11:50 Pulse 74 MON; Pulse Ox 97% ; hs1 11:51 BP 154 / 68 (auto/); hs1 12:06 BP 133 / 74 (auto/); hs1 12:07 BP 133 / 74; Pulse 70 MON; Resp 18; Temp 98.4(O); Pulse Ox 96% ; Pain 2/10; hs1 13:52 BP 150 / 82; Pulse 85; Resp 18; Pulse Ox 94% ; hs1 06:24 Body Mass Index 20.95 (66.22 kg, 177.80 cm) manohar MDM: 06:50 -Blood Culture (Adults Only), peripheral from different site, or from device/port/PICC cs11 etc. if present ordered. 06:50 IV Saline Lock ordered. cs11 06:52 -Blood Culture (Adults Only), peripheral from different site, or from device/port/PICC deg etc. if present complete. 06:52 CBC with Diff Ordered. EDMS 06:52 MED Profile Ordered. EDMS 06:52 Pt & Aptt Ordered. EDMS 06:52 Venous Blood Gas (large pea green tube on ice) Ordered. EDMS 06:52 -Blood Culture Ordered. EDMS 06:52 CT Chest Angio R/O PE Ordered. EDMS 06:53 BLOOD CULTURES Ordered. EDMS 07:00 Lactic Acid (Scott tube on ice) Ordered. EDMS 07:04 Chest, 1 View Ordered. EDMS 07:05 ECG WITH READING ER PHYS+CARDIAG ordered. EDMS 07:15 CARDIAC INJURY PROFILE Ordered. EDMS 07:15 oxyCODONE-acetaminophen 5 mg-325 mg 1 tabs PO once ordered. ml 07:15 LIVER PROFILE Ordered. EDMS 07:15 TROPONIN Ordered. EDMS 07:53 BED REQUEST+ADM ordered. EDMS 08:27 CBC with Diff Reviewed. ml 08:27 MED Profile Reviewed. ml 08:27 Venous Blood Gas (large pea green tube on ice) Reviewed. ml 08:27 CARDIAC INJURY PROFILE Reviewed. ml 08:27 LIVER PROFILE Reviewed. ml 08:27 Pt & Aptt Reviewed. ml 08:27 TROPONIN Reviewed. ml 09:01 [facility] [place] Payment Agreement was scanned into [employer] and attached to record. jp5 09:01 Financial registration complete. jp5 09:04 Chest, 1 View Reviewed. ml 10:11 Piperacillin-Tazobactam 3.375 grams IVPB once over 30 mins; dilute in 50mL of NS or D5W ml ordered. 10:57 ED course: requested by dr warren to hold on antibiotics per dr arreola who would like ml to sample pleural fluid. JAMAR romano. [facility] [place]. 11:04 Admission / Observation Status ordered. EDMS 11:04 NPO DIET ordered. EDMS 11:05 Chest, 2 view PA, Lat Ordered. EDMS 14:51 PCR was scanned into [employer] and attached to record. gb 12/14 12:00 T-Sheet-- Draft Copy was scanned into [employer] and attached to record. gb 12:00 ECG/EKG was scanned into [employer] and attached to record. gb 12:00 Radiology Report was scanned into [employer] and attached to record. gb Administered Medications: 12/13 07:27 Drug: oxyCODONE-acetaminophen 1 tabs [oxycodone-acetaminophen 5 mg-325 mg tablet (1 hs1 tabs)] Route: PO; 10:45 Not Given (hold per Rey LOGAN ): Piperacillin-Tazobactam 3.375 grams IVPB once over 30 hs1 mins; dilute in 50mL of NS or D5W Signatures: Dispatcher [employer] EDMS Pierce-Robert Scott MD MD ml Unique [place], Broadcast Maintenance Engineer Unit deg Rose Rossi, Reg Reg gb Rola Heath RN RN hs1 Jez Kennedy, DO cs11 Blanca GarciaRN RN ko2 Francia Hough RN RN af2 Ivone Dong jp5 Fani Florez, JAMAR RN lmg The chart was reviewed and I authenticate all verbal orders and agree with the evaluation and treatment provided.Corrections: (The following items were deleted from the chart) 07:14 07:04 CARDIAC INJURY PROFILE+LAB ordered. EDMS EDMS 07:14 07:04 TROPONIN+LAB ordered. EDMS EDMS 07:15 07:00 LIVER PROFILE+LAB ordered. EDMS EDMS Attachments: 09:01 [facility] Payment Agreement jp5 12/14 12:00 T-Sheet-- Draft Copy gb 12:00 ECG/EKG Chart Complete MTDD
--- NOTE | 2016-12-15 15:10 | EDDOCDS ---
Nurse's Notes [facility] Name: Que Nam Age: 89 yrs Sex: Male : 1925 Arrival Date: 12/13/2016 Time: 06:11 Bed 9 Private MD: Diagnosis: Pleural effusion in conditions classified elsewhere-rule out empyema;Chest pain, unspecified;Pneumonia, unspecified organism-recent dx; ama and not on antibiotics Presentation: 12/13 06:21 Presenting complaint: EMS states: right sided chest pain, recently hospitalized for af2 pneumonia and released on Tuesday. states pain increased with breathing. Adult Sepsis Screening: The patient does not have new or worsening altered mentation. Patient's respiratory rate is less than 22. Systolic blood pressure is greater than 100. Patient has a qSOFA score of 0- Negative Sepsis Screen. Suicide/Homicide risk assessment- the patient denies having any suicidal and/or homicidal ideations and does not present with any other emotional, behavioral or mental health complaints. Status: Patient is not a ambulatory services representative or dependent. Transition of care: patient was not received from another setting of care. 06:21 Acuity: GISELLE Level 3 af2 06:21 Method Of Arrival: Ambulance af2 Triage Assessment: 06:23 General: Appears in no apparent distress, comfortable, Behavior is appropriate for age, af2 cooperative. Pain: Location: chest Pain currently is 9 out of 10 on a pain scale. Respiratory: Onset: The symptoms/episode began/occurred today, Airway is patent Respiratory effort is even, unlabored, Breath sounds are clear bilaterally. Derm: Skin is normal. Historical: - Allergies: No known drug Allergies; - Home Meds: 1. Travatan Z 0.004 % ophthalmic drop - PMHx: Macular Degeneration; - PSHx: Hip Arthroplasty, Right; - Social history: Smoking status: Patient states was never smoker of tobacco. No barriers to communication noted, The patient speaks fluent Indonesian. - Family history: Not pertinent. - : The pt / caregiver states he / she is not on anticoagulants. Home medication list is obtained from the patient. - Exposure Risk Screening:: None identified. Screenin:23 Screening information is obtained from the patient. Fall risk: At risk due to age, The af2 following interventions are performed due to a positive Fall Risk Screen: Fall Risk is added to Special Handling on the patient Summary Screen. A Fall Risk Bracelet was applied to the patient. Side Rails are placed in the up position. A Call Ward is given with instruction to call for help when getting out of bed. Assistance ADL's: requires no assistance with activities of daily living. Abuse/DV Screen: The patient / caregiver reports he/she is: not in a situation that causes fear, pain or injury. Nutritional screening: No deficits noted. Advance Directives: Advance directive information has been placed on a prior [facility] medical record, but the patient/ family does not know when. home support is adequate. Assessment: 06:41 General: Appears in no apparent distress, pt ambulated to the bathroom and back ko2 independently. Neurological: Level of Consciousness is awake, alert. Cardiovascular: Heart tones S1 S2 present. Respiratory: Airway is patent Respiratory effort is even, unlabored, Breath sounds are diminished bilaterally. Derm: Skin is normal. Musculoskeletal: Range of motion intact in all extremities. 07:25 Pain: Location: chest and abdomen Pain currently is 8 out of 10 on a pain scale. hs1 Neurological: No deficits noted. Level of Consciousness is awake, alert, obeys commands, Oriented to person, place, time. Cardiovascular: Rhythm is irregular. Respiratory: Airway is patent Respiratory effort is even, unlabored, Breath sounds are diminished bilaterally. Derm: Skin is fragile, Skin is pink, warm & dry. normal. 08:38 Reassessment: Patient states feeling better. Patient states symptoms have improved. hs1 pain is decreasing, currently patient rates pain 3/10. Patient states feeling better. Patients family continuing at bedside. Pt aware of having CT. . General: Appears in no apparent distress, comfortable. 09:07 Adult Sepsis Screening: The patient does not have new or worsening altered mentation. hs1 Patient's respiratory rate is less than 22. Systolic blood pressure is greater than 100. Patient has a qSOFA score of 0- Negative Sepsis Screen. General: returns from CT with no issues at this time. . 09:43 Reassessment: Patient appears in no apparent distress at this time. Patient states hs1 feeling better. Pt resting aware of test results and continues at this time to be NPO. Son remains at bedside learning about plan of admission and need for possible further work up. No needs from patient at this time. . 10:45 Reassessment: Patient appears in no apparent distress at this time. Pt resting with no hs1 needs at present. Patient aware of waiting for a room. . Pain: Denies pain. Respiratory: Airway is patent Respiratory effort is even, unlabored, Breath sounds are diminished bilaterally. 11:50 General: Pt up to bedside to use urinal at this time 50 cc. Patient has no other needs. hs1 . 12:43 General: Appears in no apparent distress, comfortable, Behavior is appropriate for age, hs1 cooperative. Pain: Denies pain. Cardiovascular: Rhythm is sinus rhythm with 1st degree heart block. Respiratory: Airway is patent Respiratory effort is even, unlabored. Vital Signs: 06:24 BP 120 / 72; Pulse 91; Resp 20; Temp 99.0(TE); Pulse Ox 97% on R/A; Weight 66.22 kg manohar (R); Height 5 ft. 10 in. (177.80 cm) (R); Pain 8/; 07:36 BP 123 / 68 (auto/); hs1 07:36 Pulse 74 MON; Pulse Ox 94% ; hs1 07:51 BP 110 / 90 (auto/); hs1 07:51 Pulse 84 MON; Pulse Ox 95% ; hs1 08:06 BP 120 / 61 (auto/); hs1 08:08 Pulse 70 MON; Pulse Ox 94% ; hs1 08:21 BP 122 / 65 (auto/); hs1 08:21 Pulse 70 MON; Resp 18; Pulse Ox 93% ; hs1 08:43 BP 129 / 73 (auto/); hs1 08:43 Pulse 82 MON; Pulse Ox 93% ; hs1 08:50 Pulse 86 MON; Pulse Ox 95% ; hs1 08:51 BP 120 / 68 (auto/); hs1 09:06 BP 148 / 79 (auto/); hs1 09:06 Pulse 86 MON; Pulse Ox 96% ; hs1 09:20 Pulse 80 MON; Pulse Ox 96% ; hs1 09:21 BP 142 / 73 (auto/); hs1 09:35 Pulse 74 MON; Pulse Ox 94% ; hs1 09:36 BP 138 / 78 (auto/); hs1 09:50 Pulse 76 MON; Pulse Ox 94% ; hs1 09:51 BP 129 / 72 (auto/); hs1 10:05 Pulse 64 MON; Pulse Ox 96% ; hs1 10:06 BP 128 / 68 (auto/); hs1 10:18 Pulse 78 MON; Resp 18; Pulse Ox 93% ; hs1 10:21 BP 132 / 74 (auto/); hs1 10:50 Pulse 80 MON; Pulse Ox 96% ; hs1 10:51 BP 144 / 77 (auto/); hs1 11:05 Pulse 78 MON; Pulse Ox 97% ; hs1 11:06 BP 124 / 68 (auto/); hs1 11:21 BP 122 / 73 (auto/); hs1 11:21 Pulse 70 MON; Pulse Ox 96% ; hs1 11:50 Pulse 74 MON; Pulse Ox 97% ; hs1 11:51 BP 154 / 68 (auto/); hs1 12:06 BP 133 / 74 (auto/); hs1 12:07 BP 133 / 74; Pulse 70 MON; Resp 18; Temp 98.4(O); Pulse Ox 96% ; Pain 2/10; hs1 13:52 BP 150 / 82; Pulse 85; Resp 18; Pulse Ox 94% ; hs1 06:24 Body Mass Index 20.95 (66.22 kg, 177.80 cm) manohar Vitals: 06:43 Log In Time N/A - ambulance arrival. ko2 ED Course: 06:12 Patient visited by Mitchel Wellington, [employer] Advanced Operator Maintainer. ml3 06:12 Blanca Garcia,JAMAR is Primary Nurse. ml3 06:12 Patient moved to Waiting ml3 06:12 Patient moved to 9 ml3 06:22 Triage Initiated af2 06:24 Patient visited by Francia Hough,JAMAR. af2 06:24 Patient visited by Citlalli Clark, PRITESH. manohar 06:24 Pt greeted and oriented to ED. Patient advised of names of staff involved in care, manohar location of call ward, wait times and NPO status. Patient has correct armband on for positive identification. Placed in gown. Bed in low position. Call light in reach. Side rails up X2. panel monitor on. Pulse ox on. NIBP on. 06:39 Jez Kennedy DO is Attending Physician. cs11 06:39 Patient visited by Jez Kennedy DO. cs11 06:59 Attending Physician role handed off by Jez Kennedy DO ml 06:59 Robert Vital MD is Attending Physician. ml 07:05 Venous Blood Gas (large pea green tube on ice) Sent. ko2 07:06 Pt & Aptt Sent. ko2 07:06 -Blood Culture Sent. ko2 07:06 MED Profile Sent. ko2 07:06 CBC with Diff Sent. ko2 07:06 Inserted saline lock: 20 gauge in left antecubital area and blood collected. ko2 07:18 TROPONIN Sent. hs1 07:18 LIVER PROFILE Sent. hs1 07:18 CARDIAC INJURY PROFILE Sent. hs1 07:27 Patient visited by Rola Heath RN. hs1 07:52 Patient visited by Mario Waters. jml1 07:52 EKG done. (by ED staff). Reviewed by Robert Vital MD. jml1 08:04 Primary Nurse role handed off by Blanca Garcia RN deg 08:53 Patient visited by Rola Heath RN. hs1 08:53 Lactic Acid (Scott tube on ice) Sent. hs1 08:53 BLOOD CULTURES Sent. hs1 08:57 Chest, 1 View Returned. EDMS 09:01 [facility] Payment Agreement was scanned into [employer] and attached to record. jp5 09:08 The patient / caregiver is instructed regarding the plan of care and ED course. hs1 09:39 Rola Heath RN is Primary Nurse. hs1 09:43 Patient visited by Rola Heath RN. hs1 10:11 Osmin Warren MD is Hospitalizing Provider. ml 10:44 CT Chest Angio R/O PE Returned. EDMS 12:00 No procedures done that require assistance. hs1 14:51 PCR was scanned into [employer] and attached to record. gb 12/14 12:00 T-Sheet-- Draft Copy was scanned into [employer] and attached to record. gb 12:00 ECG/EKG was scanned into [employer] and attached to record. gb 12:00 Radiology Report was scanned into [employer] and attached to record. gb Administered Medications: 12/13 07:27 Drug: oxyCODONE-acetaminophen 1 tabs [oxycodone-acetaminophen 5 mg-325 mg tablet (1 hs1 tabs)] Route: PO; 10:45 Not Given (hold per Rey LOGAN ): Piperacillin-Tazobactam 3.375 grams IVPB once over 30 hs1 mins; dilute in 50mL of NS or D5W Order Results: Lab Order: CBC with Diff; SPEC'M 12/13/16 07:01 Test: WHITE BLOOD COUNT; Value: 6.6; Range: 4.0-10.0; Units: K/mm3; Status: F Test: RED BLOOD COUNT; Value: 3.93; Range: 4.30-6.10; Abnormal: Below low normal; Units: M/mm3; Status: F Test: HEMOGLOBIN; Value: 13.4; Range: 14.0-18.0; Abnormal: Below low normal; Units: g/dl; Status: F Test: HEMATOCRIT; Value: 40.3; Range: 42.0-52.0; Abnormal: Below low normal; Units: %; Status: F Test: MEAN CORPUSCULAR VOLUME; Value: 102.5; Range: 80.0-96.0; Abnormal: Above high normal; Units: fl; Status: F Test: MEAN CORPUSCULAR HEMOGLOBIN; Value: 34.0; Range: 27.0-33.0; Abnormal: Above high normal; Units: pg; Status: F Test: MEAN CORPUSCULAR HGB CONC; Value: 33.2; Range: 32.0-36.5; Units: g/dl; Status: F Test: RED CELL DISTRIBUTION WIDTH; Value: 13.1; Range: 11.5-14.5; Units: %; Status: F Test: PLATELET COUNT, AUTOMATED; Value: 286; Range: 150-450; Units: k/mm3; Status: F Test: NEUTROPHILS %; Value: 84.2; Range: 36.0-66.0; Abnormal: Above high normal; Units: %; Status: F Test: LYMPH %; Value: 5.9; Range: 24.0-44.0; Abnormal: Below low normal; Units: %; Status: F Test: MONO %; Value: 4.7; Range: 0.0-5.0; Units: %; Status: F Test: EOS %; Value: 2.4; Range: 0.0-3.0; Units: %; Status: F Test: BASO %; Value: 0.3; Range: 0.0-1.0; Units: %; Status: F Test: LARGE UNSTAINED CELL %; Value: 2.5; Range: 0.0-4.0; Units: %; Status: F Test: NEUTROPHILS #; Value: 5.6; Range: 1.8-7.7; Units: K/mm3; Status: F Test: LYMPH #; Value: 0.4; Range: 1.5-4.5; Abnormal: Below low normal; Units: K/mm3; Status: F Test: MONO #; Value: 0.3; Range: 0.0-0.8; Units: K/mm3; Status: F Test: EOS #; Value: 0.2; Range: 0.0-0.50; Units: K/mm3; Status: F Test: BASO #; Value: 0.0; Range: 0.0-0.2; Units: K/mm3; Status: F Test: LARGE UNSTAINED CELL #; Value: 0.2; Range: 0.0-0.4; Units: K/mm3; Status: F Lab Order: MED Profile; [facility]'M 12/13/16 07:01 Test: GLUCOSE, FASTING; Value: 117; Range: 83-110; Abnormal: Above high normal; Units: MG/DL; Status: F Test: BLOOD UREA NITROGEN; Value: 13; Range: 7-18; Units: MG/DL; Status: F Test: CREATININE FOR GFR; Value: 1.13; Range: 0.70-1.30; Units: MG/DL; Status: F Test: GLOMERULAR FILTRATION RATE; Value: > 60.0; Range: >35; Status: F Test: SODIUM LEVEL; Value: 143; Range: 136-145; Units: MEQ/L; Status: F Test: POTASSIUM SERUM; Value: 3.8; Range: 3.5-5.1; Units: MEQ/L; Status: F Test: CHLORIDE LEVEL; Value: 106; Range: 98-107; Units: MEQ/L; Status: F Test: CARBON DIOXIDE LEVEL; Value: 30; Range: 21-32; Units: MEQ/L; Status: F Test: ANION GAP; Value: 7; Range: 8-16; Abnormal: Below low normal; Units: MEQ/L; Status: F Test: CALCIUM LEVEL; Value: 9.2; Range: 8.8-10.2; Units: MG/DL; Status: F Test Note: ; Units are mL/min/1.73 m2 Chronic Kidney Disease Staging per NKF: Stage I & II GFR >=60 Normal to Mildly Decreased Stage III GFR 30-59 Moderately Decreased Stage IV GFR 15-29 Severely Decreased Stage V GFR <15 Very Little GFR Left ESRD GFR <15 on HEALTH PROMOTION MANAGER Lab Order: Pt & Aptt; SPEC12/13/16 07:01 Test: PROTHROMBIN TIME; Value: 14.3; Range: 12.3-14.5; Units: SECONDS; Status: F Test: INR; Value: 1.10; Status: F Test: PARTIAL THROMBOPLASTIN TIME; Value: 29.8; Range: 26.6-37.1; Units: SECONDS; Status: F Test Note: ; THERAPUTIC HUMAN INR VALUES INDICATIONS NORMAL RANGES PROPHYLAXIS/TREATMENT OF: VENOUS THROMBOSIS 2.0-3.0 PULMONARY EMBOLISM 2.0-3.0 PREVENTION OF SYSTEMIC EMBOLISM FROM: TISSUE HEART VALVES 2.0-3.0 ACUTE MYOCARDIAL INFARCTION 2.0-3.0 VALVULAR HEART DISEASE 2.0-3.0 ATRIAL FIBRILLATION 2.0-3.0 MECHANICAL VALVES(HIGH RISK) 2.5-3.5 RECURRENT MYOCARDIAL INFARCTION 2.5-3.5 Lab Order: Venous Blood Gas (large pea green tube on ice); SPEC12/13/16 07:01 Test: VENOUS PH; Value: 7.375; Range: 7.330-7.430; Units: UNITS; Status: F Test: VENOUS PARTIAL PRESSURE CO2; Value: 51.6; Range: 38.0-50.0; Abnormal: Above high normal; Units: mmHg; Status: F Test: VENOUS PARTIAL PRESSURE O2; Value: 27.3; Range: 30.0-50.0; Abnormal: Below low normal; Units: mmHg; Status: F Test: VENOUS TOTAL CO2; Value: 31.1; Range: 24.0-28.0; Abnormal: Above high normal; Units: MEQ/L; Status: F Test: VENOUS HCO3; Value: 29.5; Range: 23.0-27.0; Abnormal: Above high normal; Units: MEQ/L; Status: F Test: VENOUS BASE EXCESS; Value: 3.2; Range: -2.0-2.0; Abnormal: Above high normal; Status: F Test: VENOUS STANDARD HCO3; Value: 26.0; Units: MEQ/L; Status: F Test: VENOUS O2 SATURATION; Value: 47.6; Range: 60.0-80.0; Abnormal: Below low normal; Units: %; Status: F Lab Order: Lactic Acid (Scott tube on ice); LOCATED [facility] 12/13/16 08:51 Test: LACTIC ACID SEPSIS PROTOCOL; Value: 0.8; Range: 0.4-2.0; Units: MMOL/L; Status: F Lab Order: CARDIAC INJURY PROFILE; [facility]ATED [facility] 12/13/16 07:01 Test: CPK CREATINE PHOSPHOKINASE; Value: 24; Range: 39-308; Abnormal: Below low normal; Units: U/L; Status: F Test: CK-MB VALUE MASS; Value: 1.0; Range: 0.0-3.6; Units: NG/ML; Status: F Test: MB/CK RELATIVE INDEX; Value: 4.16; Range: < OR =4; Abnormal: Above high normal; Status: F Test Note: ; DIAGNOSIS CRITERIA MMB ng/ml Relative Index (RI) NON-AMI < or = 5 N/A SCOTT ZONE > 5 < or = 4 AMI > 5 > 4 Lab Order: LIVER PROFILE; [facility] 12/13/16 07:01 Test: AST/SGOT; Value: 15; Range: 15-37; Units: U/L; Status: F Test: ALT/SGPT; Value: 27; Range: 12-78; Units: U/L; Status: F Test: ALKALINE PHOSPHATASE; Value: 61; Range: 45-117; Units: U/L; Status: F Test: BILIRUBIN,TOTAL; Value: 0.7; Range: 0.2-1.0; Units: MG/DL; Status: F Test: BILIRUBIN,DIRECT; Value: 0.1; Range: 0.0-0.2; Units: MG/DL; Status: F Test: TOTAL PROTEIN; Value: 6.5; Range: 6.4-8.2; Units: GM/DL; Status: F Test: ALBUMIN; Value: 2.8; Range: 3.2-5.2; Abnormal: Below low normal; Units: GM/DL; Status: F Test: ALBUMIN/GLOBULIN RATIO; Value: 0.76; Range: 1.00-1.93; Abnormal: Below low normal; Status: F Lab Order: TROPONIN; SPEC'M 12/13/16 07:01 Test: TROPONIN I; Value: < 0.02; Range: < 0.10; Units: NG/ML; Status: F Test Note: ; Troponin I Reference Interval for Siemens [place] LOCI: 99th Percentile= 0.00-0.045 ng/ml Risk Stratification: <= 0.10 ng/ml Decreased Risk for Adverse Clinical Events. 0.10-1.50 ng/ml Increased Risk for Adverse Clinical Events. Evaluation of additional criterion and/or repeat testing in 2-6 hours is suggested to rule out myocardial damage. >= 1.50 ng/ml Indicative of Myocardial Injury. Radiology Order: CT Chest Angio R/O PE Test: CT Chest Angio R/O PE REASON FOR EXAMINATION: Chest Pain; CT ANGIOGRAM CHEST: 12/13/2016.; ; Comparison: Chest CT 12/06/2016, CT angiogram chest 09/27/2014.; ; Technique: 75 ml of Isovue 370 with scanning through the chest with coronal and; sagittal thick slab reformats.; ; Findings: The massive hiatal hernia is again seen with the retrocardiac stomach; in the left retrocardiac zone and also stomach and hepatic flexure in the right; . This is unchanged. Heart size unchanged. No pericardial; thickening or effusion. There is improvement in the right middle lobe infiltrate; in the medial segment right middle lobe and to some extent in the lateral segment; but subsegmental atelectatic changes or consolidation of the lateral segment is; seen to a lesser extent along with the lateral basal segment right lower lobe.; The right effusion now seen measures up to 3.5 cm in thickness. Minor dependent; atelectatic change along the major fissures bilaterally. The right lung is; without infiltrate or effusion. There is some compressive atelectatic change; adjacent to that hiatal hernia in the left retrocardiac region. The aorta is; without aneurysm or dissection. The main right and left pulmonary arteries in; the mediastinum are without filling defects. No mediastinal or hilar adenopathy.; The nodes seen are not of pathologic size and normal. There is; no axillary or supraclavicular mass. The lobar, segmental and subsegmental; pulmonary arteries are without vessel cutoff or filling defect to suggest; pulmonary emboli. The upper abdomen shows that portion of liver and spleen; included to be unremarkable. No adrenal lesion. Upper poles kidneys seen in; part unremarkable. That portion of pancreas included was intact. Bones; unchanged.; ; Impression:; 1. No CT evidence of pulmonary thromboembolism in the central, lobar, segmental; or visible subsegmental arteries.; 2. There is now a right pleural effusion up to 3.5 cm thick with improvement in; the right middle lobe infiltrates, clearing of the medial segment but with; consolidation or atelectasis in the lateral segment of the right middle lobe and; also lateral basal segment of the right lower lobe.; 3. Left lung clear except for some dependent and compressive atelectatic change; adjacent to the major fissure and along the heart border and hernia.; 4. A massive hiatal hernia is seen.; 5. No upper abdominal abnormality.; ; ; ; ; Incomplete; Radiology Order: Chest, 1 View Test: Chest, 1 View REASON FOR EXAMINATION: sob right sided cp; Portable chest x-ray: Sitting AP view.; ; History: Shortness of breath. Right-sided chest pain.; ; Comparison study December 06, 2016.; ; Findings: The lower half of the right hemithorax is opacified by a large hiatal; hernia. There is retrocardiac hernia opacity on the left as well. This is; unchanged. There is blunting of the right lateral pleural angle suggesting right; pleural effusion. This is a new finding. Lung matamoros are otherwise clear.; Pulmonary vasculature is not increased. Heart is mildly enlarged.; ; Impression:; ; Cardiomegaly, large hiatal hernia again noted. New right pleural effusion.; ; ; ; ; Unreviewed; Outcome: 10:12 Decision to Hospitalize by Provider. ml 13:47 Discharge Assessment: Patient awake, alert and oriented x 3. No cognitive and/or hs1 functional deficits noted. Patient verbalized understanding of disposition instructions. patient administered narcotics - no. The following High Risk Discharge criteria are identified: None. Admitted to PCU accompanied by nurse, accompanied by tech, via wheelchair, on monitor, with chart. Condition: stable. CT Study completed. Property :Personal belongings accompany Pt. 14:09 Patient left the ED. hs1 Signatures: Dispatcher [employer] EDMS Robert Vital MD MD ml Unique Carlisle, [employer] Advanced Operator Maintainer Unit deg Rose Rossi, Reg Reg gb Amish, Mitchel, [employer] Advanced Operator Maintainer Unit ml3 Rola Heath, RN RN hs1 Citlalli Clark, HEALTH PROMOTION OFFICER HEALTH PROMOTION OFFICER manohar Mario Waters jml1 Jez Kennedy, DO cs11 Blanca GarciaRN RN ko2 Francia Hough,RN RN af2 Ivone Dong jp5 Corrections: (The following items were deleted from the chart) 07:14 07:06 TROPONIN+LAB sent. ko2 EDMS 07:14 07:06 CARDIAC INJURY PROFILE+LAB sent. ko2 EDMS 07:15 07:05 LIVER PROFILE+LAB sent. ko2 EDMN Chart Complete MTDD
--- NOTE | 2016-12-15 17:54 | IPN ---
DATE: 12/15/2016 Mr. Nam is now up on the 4th floor and he is doing quite well. He is in good spirits and he has not complained of any pain. He is breathing well. His vital signs show a T-max of 98.9 with a heart rate that ranges between 96 and 99 with a regular rate and rhythm, respiratory rate of constant 18 who is 95 to 93% saturated on room air and his blood pressure is ranging between 139/71 to 117/64. His intake and output over the past 24 hours has been recorded as 1530 in and 330 out for a positivity of 1200 mL. He has only put out 250 mL in urine. Weight today is 66.6 kg compared to 67.4 kg yesterday. On physical examination, he has breath sounds fully down to his elevated hemidiaphragm on the right hand side. Remainder of the lower portion of the hemithorax shows active bowel sounds. Left hemithorax shows normal vesicular sounds without wheezes, rhonchi or rales. Percussion note is full to the diaphragm on the left. His heart exam is without murmurs, clicks, gallops or rubs. I cannot feel his point of maximal impulse (PMI). S1 and S2 are normal. Heart sounds are distant. Abdomen is soft and nontender. Bowel sounds positive. No hepatomegaly. No costovertebral angle (CVA) tenderness. Extremities show no pretibial edema. No calf tenderness. No differential swelling of the upper extremities. Skin is warm, dry and perfused without cyanosis or mottling including that of the nail beds and the knees. Neck is supple. There is no jugular venous distention. No subcutaneous emphysema. Trachea is midline. Mouth shows his mucous membranes to be pink and moist. Lips and commissures without lesions. No thrush. Eyes show his pupils to be equal, reactive. Extraocular muscles intact. Sclera anicteric. Neuro shows II through XII intact. Gross motor and gross sensation intact. Gait is not tested. Psychiatric shows him to be awake, alert and oriented times three with appropriate mood, affect and conversational. His white count today is 8.8 with hemoglobin and hematocrit of 11.8 and 35.5, unchanged from yesterday with a platelet count of 336. Differential shows 86% neutrophils, 3% lymphocytes, 4% monocytes. There are no immature forms or toxic granulations. His electrolytes are normal with a BUN and creatinine of 15 and 1.1. Glucose is 103 with a calcium of 8.1. There are no blood gases on him today. His chest x-ray shows his lung fully expanded to the chest wall. I can see bowel into the chest, but below the diaphragm from his eventration or hiatal hernia. There is some extra fluid now with an air fluid level in the right chest. I cannot really tell if the air fluid level is bowel or referable to the chest itself. However, on the lateral film I see a mildly dilated colon which measures 6 cm with an air fluid level in it. I suspect that is what I am seeing on the PA film. There is a small amount of fluid at the right costophrenic angle custodial up the chest. IMPRESSION: 1. Right pleural effusion, resolved with a chest tube. Peripneumonic effusion. 2. Right lower lobe pneumonia. 3. Paraesophageal hernia. 4. Macular degeneration. PLAN AND DISCUSSION: I see no reason why he cannot go home tomorrow. He is presently on Levaquin as antibiotic. It looks as though his pleural effusion and peripneumonic effusion is now under control. His primary care is Dr. Burnett and he can appropriately followup with Dr. Burnett. He should not need to return to see me unless there is a problem and I am sure Dr. Burnett will call me if I need to see him again in the office.
[2016-12-15 18:00] VITALS: BP 132/75
[2016-12-15 22:00] VITALS: BP 111/56
[2016-12-16] MEDS: LEVALBUTEROL 1.25 MG/0.5 ML CONCENTRATE NEB NEB SCH ×2 (01:38→08:51)
[2016-12-16 02:00] VITALS: BP 121/64
[2016-12-16] MEDS: LevoFLOXacin 750 MG TABLET PO SCH (05:35)
[2016-12-16] MEDS: SLF 3 ML SYR IV SCH (05:35)
[2016-12-16 05:55] LABS: BASO % 0.3 % (0.0-1.0); EOS # 0.4 K/mm3 (0.0-0.50); EOS % 5.7 % (0.0-3.0); LARGE UNSTAINED CELL # 0.1 K/mm3 (0.0-0.4); LYMPH # 0.5 K/mm3 (1.5-4.5); LYMPH % 5.1 % (24.0-44.0); MEAN CORPUSCULAR HEMOGLOBIN 33.4 pg (27.0-33.0); MEAN CORPUSCULAR HGB CONC 32.2 g/dl (32.0-36.5); MEAN CORPUSCULAR VOLUME 103.9 fl (80.0-96.0); MONO # 0.5 K/mm3 (0.0-0.8); NEUTROPHILS # 6.1 K/mm3 (1.8-7.7); NEUTROPHILS % 80.8 % (36.0-66.0); PLATELET COUNT, AUTOMATED 372 k/mm3 (150-450); RED CELL DISTRIBUTION WIDTH 13.3 % (11.5-14.5); WHITE BLOOD COUNT 7.6 K/mm3 (4.0-10.0)
[2016-12-16 06:00] VITALS: BP 123/71
[2016-12-16 06:07] LABS: ANION GAP 8 MEQ/L (8-16); BLOOD UREA NITROGEN 11 MG/DL (7-18); CALCIUM LEVEL 8.8 MG/DL (8.8-10.2); CARBON DIOXIDE LEVEL 26 MEQ/L (21-32); CHLORIDE LEVEL 107 MEQ/L (98-107); CREATININE FOR GFR 1.19 MG/DL (0.70-1.30); GLOMERULAR FILTRATION RATE > 60.0 (>35); GLUCOSE, FASTING 84 MG/DL (83-110); POTASSIUM SERUM 4.7 MEQ/L (3.5-5.1); SODIUM LEVEL 141 MEQ/L (136-145)
--- NOTE | 2016-12-16 08:57 | REP ---
Chest x-ray: Two views. History: Pleural effusions. Comparison chest x-ray December 15, 2016. Findings: There is a large hiatal hernia projecting in the lung bases bilaterally containing bowel loops. There is a right pleural effusion again noted blunting the pleural angle. Left lung is otherwise clear. No new infiltrate on either side. Impression: Large bowel containing hiatal hernia projecting behind the heart on the left and in the right chest. Right pleural effusion again noted. No new infiltrate. Signed by Ysah Ramos MD 12/16/2016 12:22 P
[2016-12-16] MEDS: MOM 30ML SUSPENSION UDC PO SCH (09:00)
[2016-12-16] MEDS: PANTOPRAZOLE 40MG TAB (PROTONIX) PO SCH (09:38)
[2016-12-16] MEDS: DOCUSATE SODIUM 100 MG CAP PO SCH (09:38)
[2016-12-16] MEDS: HEPARIN SOD (PORCINE) 5000 UNITS/ML VIAL SC SCH (09:38)
[2016-12-16] MEDS ORDERED: PANT40TA2 PO (10:05)
[2016-12-16] MEDS ORDERED: LEVA750T PO (10:05)
--- NOTE | 2016-12-19 11:41 | DSES ---
DATE OF ADMISSION: 12/13/2016 DATE OF DISCHARGE: 12/16/2016 DISCHARGE DIAGNOSES: 1. Right-sided parapneumonic effusion, status post chest tube with resolution. 2. Right lower lobe pneumonia. 3. Paraesophageal massive hiatal hernia. 4. Macular degeneration. 5. Diverticulosis. DISCHARGE MEDICATIONS: - levofloxacin 750 mg by mouth daily - pantoprazole 40 mg by mouth daily - travoprost z eye drop - Simbrinza eye drop HOSPITAL COURSE: This is an 89-year-old male who had been initially hospitalized on 11/19/2016 for right-sided pneumonia and metabolic encephalopathy; however, left against medical advice. After two days, then came back on 12/13/2016 for increasing shortness of breath and right-sided chest pain. CT scan was done in the emergency room, which showed a new pleural effusion with an improvement in the right middle lobe infiltrate, but still present along with consolidation and atelectasis of the lower lobes. The patient was diagnosed with right pneumonia, as well as parapneumonic effusion, possible empyema and admitted. The patient had a chest tube placed with drainage of effusion and resolution of the fluid. The patient was started on levofloxacin. The patient's symptoms improved with chest tube; and on the day of discharge, the patient had a repeat chest x-ray, which did show a little bit of the appearance of effusion. However, symptomatically the patient had improved functionally. The patient was at baseline with acceptable vitals, so was discharged home to continue oral antibiotics at home. PHYSICAL EXAMINATION: Temperature 97.8, pulse 89, respiratory rate 18, blood pressure 123/71, pulse oximetry 94% on room air. GENERAL: The patient awake, alert, oriented times three, sitting up in chair in no acute distress. HEENT: Normocephalic, atraumatic. Moist mucous membranes. Anicteric eyes. CHEST: There is decreased breath sounds on the right, as well as at the base of the left. No wheezing or rhonchi. CARDIOVASCULAR: S1, S2 regular. No rub, murmur or gallop. ABDOMEN: Soft, nontender. Bowel sounds present. Extremities: No edema. LABORATORY DATA: White blood count (WBC) 7.6, hemoglobin 12, platelets 372. Sodium 141, potassium 4.7, chloride 107, bicarbonate 26, BUN 11, creatine 1.1, glucose 84, calcium 8.8. Blood cultures were negative. Gram-stain of pleural fluid did not show any organisms and after four days no growth yet. Acid-fast bacillus smear in the pleural fluid was negative. Chest x-ray on the day of discharge, there is a large bowel containing hiatal hernia presenting behind the heart to the left and right of the chest. There was a small amount of right pleural effusion again noted. No new infiltrate. CT angiogram of the chest on the day of admission, that is 12/13, no embolism. There was a new right pleural effusion up to 3.5 cm thick. There is improvement in the right middle lobe infiltrates. Clearing of the middle segment, but with consolidation atelectasis in the lateral segment of the right middle lobe, as well as at lateral basal segment of the right lower lobe. Left lung showed compressive atelectatic changes, a massive hiatal hernia. DISPOSITION: The patient is discharged home in stable condition. DISCHARGE INSTRUCTIONS: The patient to followup with primary care provider in one week. Regular diet. Activity as tolerated.
== END 2016-12-16 12:42 | disposition home or self-care (01) | DRG 177 ==
LOC: M ED 06:11 → M ED INP 10:57 → M PCU 14:00 → M MSPAV 12-15 06:03
PROVIDERS: ADMIT Internal Medicine; ATTEND Internal Medicine Nephrology
PROC: 0W9930Z Drainage of Right Pleural Cavity with Drainage Device, Percutaneous Approach (ICD-10-PCS; principal; 2016-12-13)
DX: J86.9 Pyothorax without fistula (principal); J18.9 Pneumonia, unspecified organism; K44.9 Diaphragmatic hernia without obstruction or gangrene; H35.30 Unspecified macular degeneration; K57.30 Diverticulosis of large intestine without perforation or abscess without bleeding; Z79.899 Other long term (current) drug therapy